=== PATIENT | female | born 1955 | race Caucasian/White ===

== ENCOUNTER 2019-10-28 11:05 | Emergency (ER) | payer SELFPAY ==
[2019-10-28 11:15] VITALS: BP 174/91; PULSE 79; RESP 17; TEMP 36.5; O2SAT 99; BMI 53.5
--- NOTE | 2019-10-28 11:21 | ED_ITS ---
HPI - Female Genitourinary General: Chief complaint: Urogenital-Female Stated complaint: blood in urine Time Seen by Provider: 10/28/19 11:13 History of Present Illness: HPI Narrative: Patient again had symptoms of urinary tract infections morning. She has frequency, urgency, voiding small amounts, and noticed some blood in the urine. MD elicited complaint: dysuria and UTI Onset (ago): hour(s) Severity: moderate Quality of pain: burning Urinary symptoms: Difficulty Urinating, Dysuria, Frequency, Hematuria and Urgency Exacerbating factors: urination Relieving factors: none Associated symptoms: Deny fevers/chills or nausea Review of Systems General: Reports: 10 or more systems reviewed and unremarkable except in HPI and below GI: Denies: nausea PFSH ED PFSH: Social History Smoking and tobacco status: never smoked Physical Exam Const: COMMON NORMALS: no acute distress, healthy appearing and well nourished GENERAL APPEARANCE: cooperative and well developed HENMT: COMMON NORMALS: normocephalic and atraumatic HEAD & SCALP: normal to inspection, normocephalic and atraumatic Eye: GENERAL EYE: appearance normal, both eyes and all related structures Neck/C-Spine: COMMON NORMALS: full ROM, no lymphadenopathy and no meningeal signs GENERAL: Yes normal visual inspection CERVICAL SPINE: Yes cervical ROM normal and Yes normal cervical lordosis Chest: COMMONS NORMALS: normal inspection of the chest and normal palpation of entire chest wall Resp: COMMON NORMALS: normal respiratory effort, clear to auscultation bilaterally and percussion normal AUSCULTATION: clear to auscultation bilaterally PERCUSSION: percussion normal Cardio: COMMON NORMALS: regular rate, regular rhythm, S1 normal heart sound present and S2 normal heart sound present JUGULAR VENOUS DISTENTION: no JVD PALPATION: normal PMI RATE: regular rate RHYTHM: regular rhythm HEART SOUNDS: S1 normal heart sound present and S2 normal heart sound present GI: COMMON NORMALS: Soft to palpation and No hepatosplenomegaly present INSPECTION: Yes normal to inspection PALPATION: Yes Soft to palpation and Yes No hepatosplenomegaly present PERCUSSION: normal to percussion : COMMON NORMALS: Yes no CVA tenderness BLADDER/KIDNEY EXAM: Yes no CVA tenderness Back/Pelvis: COMMON NORMALS: no CVA tenderness, thoracic and lumbar spine normal to inspection and thoraco-lumbar ROM normal Extremity: COMMON NORMALS: normal to inspection, full ROM and capillary refill normal Neuro: MENINGEAL SIGNS: Yes no meningeal signs Skin: COMMON NORMALS: no rashes or lesions noted, no wounds and turgor normal GENERAL SKIN EXAM: no rashes or lesions noted, elasticity normal and turgor normal LESIONS: no lesions RASHES: no rashes TRAUMA: no lacerations or abrasions HAIR: normal NAILS: normal Course Vital Signs: Vital signs: Vital Signs Temperature 97.7 F 10/28/19 11:15 Pulse Rate 79 10/28/19 11:15 Respiratory Rate 17 10/28/19 11:15 Blood Pressure 174/91 10/28/19 11:15 Pulse Oximetry 99 10/28/19 11:15 MDM - Female Lab Data: Labs: Lab Results 10/28/19 Range/Units 11:15 Urine Color Yellow (Yellow) Urine Appearance Cloudy (CLEAR) Urine pH 5 (5-7) Ur Specific Gravit y 1.020 (1.005-1.030) Urine Protein 1+ H (Negative) Urine Glucose (UA) 4+ H (Normal) Urine Ketones Negative (Negative) Urine Blood 3+ H (Negative) Urine Nitrate Negative (Negative) Urine Bilirubin Neg (NEGATIVE) Urine Urobilinogen Norm (Negative) mg/dL Ur Leukocyte Karuna ase 1+ H (Negative) Urine RBC 40-50 H (0-2) /hpf Urine WBC 15-25 H (0-5) /hpf Ur Squamous Epith Cells 0-4 H (0-5) Urine Bacteria 1+ H (NONE) Urine Mucus Trace Discharge Plan Discharge Patient Disposition: Home, Self-Care Clinical Impression: Urinary tract infection Qualifiers: Urinary tract infection type: acute cystitis Hematuria presence: with hematuria Qualified Code(s): N30.01 - Acute cystitis with hematuria Condition: Stable Prescriptions: New Bactrim DS 800-160 mg tablet 1 tab PO BID 7 Days Qty: 14 RF: 0 Pyridium 200 mg tablet 200 mg PO TID Qty: 6 RF: 0 No Action metformin 500 mg tablet 500 mg PO BID RF: 0 glyburide 5 mg tablet 10 mg PO BID RF: 0 paroxetine HCl 20 mg tablet 40 mg PO DAILY RF: 0 Vitamin D3 125 mcg (5,000 unit) Tablet 250 mcg PO DAILY RF: 0 Discharge Orders: Discharge Order (Routine); Ordered 10/28/19 Ordered By: Esvin Chatman Referrals: Pauly Hussein DO [Primary Care Provider] - Coding Level of Care Code ED Mechanical Sound Technician for Chg Fwd Exam Comprehensive
[2019-10-28 12:12] LABS: Glucose Urine UA 4+ (Normal); Ketones Urine Negative (Negative); Protein Urine 1+ (Negative); Urine Appearance Cloudy (CLEAR); Urine Color Yellow (Yellow); pH Urine 5 (5-7)
[2019-10-28 12:13] LABS: Add Urine Microscopic? YES; Bilirubin Urine Neg (NEGATIVE); Blood Urine 3+ (Negative); Leukocyte Esterase Urine 1+ (Negative); Nitrate Urine Negative (Negative); Urobilinogen Urine Norm (Negative)
[2019-10-28 12:18] LABS: RBC Urine 40-50 /hpf (0-2); WBC Urine 15-25 /hpf (0-5)
[2019-10-28 12:19] LABS: Add Urine Culture? Yes; Bacteria Urine 1+; Mucus Urine TRACE; Squamous Epithelial Cell Urine 0-4 (0-5)
[2019-10-28] MEDS: lidocaine 1% INJ 20 mL IM (13:41)
[2019-10-28] MEDS: cefTRIAXone 1,000 mg SDV 1000 MG IM (13:41)
[2019-10-28 14:00] VITALS: BP 130/82; PULSE 75; RESP 17; O2SAT 98
== END 2019-10-28 14:00 | disposition home or self-care (01) ==
PROVIDERS: Emergency Provider Family Medicine; Family Provider Family Medicine; PCP Family Medicine
DX: N30.01 Acute cystitis with hematuria (principal)
CPT/HCPCS: 12345; 81001; 87077; 87086; 87186; 96372; 99282; 99283; J0696; J2001

== ENCOUNTER 2019-12-19 11:17 | Emergency (ER) | payer SELFPAY ==
--- NOTE | 2019-12-19 11:21 | XRR_ITS ---
PROCEDURE INFORMATION: Exam: XR Chest, 1 View Exam date and time: 12/19/2019 12:34 PM Age: 64 years old Clinical indication: Type not specified; Patient HX: C/O chest pain and tightness; L arm pain. HX of colon cancer TECHNIQUE: Imaging protocol: XR of the chest Views: 1 view. COMPARISON: No relevant prior studies available. FINDINGS: Lungs: Unremarkable. No consolidation. Pleural space: Unremarkable. No pleural effusion. No pneumothorax. Heart/Mediastinum: Unremarkable. No cardiomegaly. Bones/joints: Unremarkable. XR/XR chest 1V portable [id number] IMPRESSION: No acute findings.
--- NOTE | 2019-12-19 11:21 | ECG_ITS ---
[facility] Test Date: 2019-12-19 Pat Name: Emma Nguyen Department: Room: Gender: Female Pharmacy Messenger: ts : 1955 Requested By: Dionne Marmolejo Order Number: [id number] Kai MD: Donald Pierce M.D. Measurements Intervals [place] Rate: 111 P: -15 NE: 204 QRS: 262 QRSD: 116 T: 7 QT: 321 QTc: 438 Interpretive Statements SINUS TACHYCARDIA INCOMPLETE RIGHT BUNDLE BRANCH BLOCK [90+ ms QRS DURATION, TERMINAL R IN V1/V2, 40+ ms S IN I/aVL/V4/V5/V6] INFERIOR MYOCARDIAL INFARCTION [40+ ms Q WAVE AND/OR ST/T ABNORMALITY IN II/aVF], PROBABLY OLD ANTEROLATERAL MYOCARDIAL INFARCTION [40+ ms Q WAVE IN I/aVL/V3-V6], OF INDETERMINATE AGE No previous ECG available for comparison Electronically Signed On 12-19-2019 17:05:55 CDT by Donald Pierce M.D. [id number] f
[2019-12-19 12:03] VITALS: BP 121/76; PULSE 105; RESP 16; TEMP 36.8; O2SAT 96; BMI 54.3
--- NOTE | 2019-12-19 13:21 | ECG_ITS ---
[facility] Test Date: 2019-12-19 Pat Name: Emma Nguyen Department: Room: Gender: Female Inventory Manager: : 1955 Requested By: Dionne Marmolejo Order Number: [id number] Quinn MD: Donald Pierce M.D. Measurements Intervals [place] Rate: 85 P: 59 MT: 213 QRS: 263 QRSD: 119 T: 12 QT: 362 QTc: 433 Interpretive Statements SINUS RHYTHM WITH FIRST DEGREE AV BLOCK RIGHT AXIS DEVIATION [QRS AXIS > 100] PATTERN CONSISTENT WITH PULMONARY DISEASE RIGHT BUNDLE BRANCH BLOCK [120+ ms QRS DURATION, UPRIGHT V1, 40+ ms S IN I/aVL/V4/V5/V6] INFERIOR MYOCARDIAL INFARCTION [40+ ms Q WAVE AND/OR ST/T ABNORMALITY IN II/aVF], PROBABLY OLD ANTEROLATERAL MYOCARDIAL INFARCTION [40+ ms Q WAVE IN I/aVL/V3-V6], OF INDETERMINATE AGE Compared to ECG 12/19/2019 12:07:31 First degree AV block now present Right-axis deviation now present Sinus tachycardia no longer present Electronically Signed On 12-19-2019 17:55:07 CDT by Donald Pierce M.D. [id number]
[2019-12-19 13:55] LABS: Basophils # 0.1 10^3/uL (0.0-0.1); Basophils % 0.7 %; Eosinophils # 0.1 10^3/uL (0.0-0.8); Eosinophils % 0.9 %; Hemoglobin 15.7 g/dL (11.5-15.3); Lymphocytes # 1.8 10^3/uL (0.8-4.8); Lymphocytes % 20.8 %; Mean Corpuscular Volume 93.5 fL (81-99); Mean Platelet Volume 10.3 fL (7.4-10.4); Monocytes # 0.6 10^3/uL (0.2-0.9); Neutrophils # 6.02 10^3/uL (1.8-7.7); Neutrophils % 70.2 %; Nucleated Red Blood Cells % 0 %; Platelet Count 297 10^3/cmm (130-400); Red Blood Count 5.24 10^6/uL (4.1-5.3); Red Cell Distribution Width 12.2 % (12.1-15.1); White Blood Count 8.6 10^3/uL (4.0-10.0)
[2019-12-19 14:07] VITALS: BP 101/85; PULSE 87; RESP 18; O2SAT 98
[2019-12-19 14:11] LABS: Alanine Aminotransferase 22 U/L (0-33); Albumin Level 3.8 g/dL (3.5-5.2); Alkaline Phosphatase 80 IU/L (35-105); Aspartate Amino Transferase 15 U/L (0-32); Blood Urea Nitrogen 21 mg/dL (8-23); Calcium 9.1 mg/dL (8.5-10.5); Carbon Dioxide 24 mmol/L (22-29); Chloride 97 mmol/L (98-107); Globulin 3.3 g/dL (1.3-4.6); Glomerular Filtration Rate 63.4 mL/min (90-130); Glucose 326 mg/dL (65-115); Osmolality Calculated 283 mOsm/kg (285-295); Sodium 132 mmol/L (136-145); Total Bilirubin 0.5 mg/dL (0.15-1.2); Total Protein 7.1 g/dL (6.6-8.7)
[2019-12-19 14:14] LABS: Troponin(5th) Baseline 12 ng/L (0-10)
--- NOTE | 2019-12-19 14:29 | ED_ITS ---
HPI - Arrhythmia/Palpitations General: Chief Complaint: Arrhythmia/Palpitations Stated Complaint: CHEST PAIN L ARM PAIN Time Seen by Provider: 12/19/19 13:57 History of Present Illness: HPI narrative: 64-year-old female comes in complaining of chest pain and heaviness she had some diaphoresis left arm discomfort with the pain radiating to the left shoulder and arm. She has had this in the past she has had several stress test work showed further evaluation she was told that it was due to esophageal spasm and irritation. She reports initially the pain that was worse was 4 of 10 is nearly resolved now, she is essentially pain-free. Severity: moderate Context: occurred during rest Associated symptoms: Reports no associated symptoms; Deny anxiety, diaphoresis, muscle cramps, nausea, pre-syncope, short of breath or syncope Review of Systems Const: Denies: diaphoresis Card: Denies: syncope or pre-syncope GI: Denies: nausea Musc: Denies: muscle cramps Psych: Denies: anxiety PFSH ED PFSH: Medical History (Updated 12/19/19 @ 15:19 by Hansel Singh DO) Colon cancer CVA (cerebral vascular accident) Diabetes mellitus Surgical History (Updated 12/19/19 @ 14:34 by Hansel Singh DO) H/O carpal tunnel repair Hx of cholecystectomy S/P colon resection Social History (Updated 12/19/19 @ 14:35 by Hansel Singh DO) Smoking and tobacco status: never smoked Alcohol intake: never Physical Exam Const: COMMON NORMALS: average body habitus, patient oriented x3 and alert GENERAL APPEARANCE: cooperative, comfortable, well kempt and well developed NUTRITIONAL APPEARANCE: obese ORIENTATION/CONSCIOUSNESS: Yes awake, Yes oriented to person and Yes oriented to place HENMT: COMMON NORMALS: normocephalic and atraumatic HEAD & SCALP: normocephalic and atraumatic Eye: COMMON NORMALS: Equal, round and reactive pupils present, EOMs intact bilaterally, conjunctivae normal and no scleral icterus CONJUNCTIVA: Yes conjunctivae normal PUPIL: Yes Equal, round and reactive pupils present Neck/C-Spine: COMMON NORMALS: full ROM, no lymphadenopathy, supple, no meningeal signs and Thyroid normal THYROID: Thyroid normal and asymmetrical Lymph: LYMPHATIC: no lymphadenopathy noted Resp: COMMON NORMALS: normal respiratory effort, No retractions, No use of accessory muscles and clear to auscultation bilaterally AUSCULTATION: clear to auscultation bilaterally Cardio: COMMON NORMALS: regular rate and regular rhythm RATE: regular rate RHYTHM: regular rhythm HEART SOUNDS: no murmurs GI: COMMON NORMALS: Normal to inspection, nondistended, normoactive bowel sounds present, Soft to palpation and No hepatosplenomegaly present PALPATION: Yes Soft to palpation and Yes No hepatosplenomegaly present : COMMON NORMALS: Yes no CVA tenderness BLADDER/KIDNEY EXAM: Yes no CVA tenderness Back/Pelvis: COMMON NORMALS: no CVA tenderness LUMBAR SPINE/LOWER BACK: Yes normal to inspection Extremity: COMMON NORMALS: no clubbing, cyanosis or edema, no calf tenderness and no pedal edema Neuro: COMMON NORMALS: patient oriented x3 SENSORIUM/ORIENTATION: Yes alert, Yes oriented to person and Yes oriented to place MENINGEAL SIGNS: Yes no meningeal signs Psych: APPEARANCE: Yes well kempt Skin: COMMON NORMALS: no rashes or lesions noted and turgor normal GENERAL SKIN EXAM: no rashes or lesions noted and turgor normal Course Vital Signs: Vital signs: Vital Signs Temperature 98.3 F 12/19/19 12:03 Pulse Rate 84 12/19/19 16:35 Respiratory Rate 18 12/19/19 16:35 Blood Pressure 101/86 12/19/19 16:35 Pulse Oximetry 94 12/19/19 16:35 MDM - Arrhythmia/Palpitations MDM Narrative: Medical decision making narrative: Patient has had no further arrhythmias while in the hospital. We will go ahead and discharge home we will get her set up for 24-hour Holter. No change in medication at this time is is any recurrent return to the emergency room otherwise follow-up with her primary care doctor next week Lab Data: Labs: Lab Results 12/19/19 12/19/19 12/19/19 Range/Units 13:09 13:09 13:09 WBC Cancelled Corrected WBC Cancelled RBC Cancelled Hgb Cancelled Hct Cancelled MCV Cancelled MCH Cancelled MCHC Cancelled RDW Cancelled Plt Count Cancelled MPV Cancelled Gran % Cancelled Neut % (Auto) Cancelled Lymph % (Auto) Cancelled [place] % (Auto) Cancelled Eos % (Auto) Cancelled Baso % (Auto) Cancelled Neut # (Auto) Cancelled Lymph # (Auto) Cancelled [place] # (Auto) Cancelled Eos # (Auto) Cancelled Baso # (Auto) Cancelled Absolute Gran (aut o) Cancelled Nucleated RBC % (a uto) Cancelled Nucleated RBCs # Cancelled Sodium 132 L (136-145) mmol/L Potassium 4.4 (3.5-5.1) mmol/L Chloride 97 L (98-107) mmol/L Carbon Dioxide 24 (22-29) mmol/L Anion Gap 15.4 (5-19) BUN 21 (8-23) mg/dL Creatinine 0.9 (0.5-0.9) mg/dL GFR Calculation 63.4 L (90-130) mL/min Glucose 326 H (65-115) mg/dL Calculated Osmolal ity 283 L (285-295) mOsm/k g Calcium 9.1 (8.5-10.5) mg/dL Total Bilirubin 0.5 (0.15-1.2) mg/dL AST 15 (0-32) U/L ALT 22 (0-33) U/L Alkaline Phosphata se 80 (35-105) IU/L Troponin T Baselin e 12 H (0-10) ng/L Troponin T 120 Min raphael (0-10) ng/L Delta Troponin T (0-10) ABS# Total Protein 7.1 (6.6-8.7) g/dL Albumin 3.8 (3.5-5.2) g/dL Globulin 3.3 (1.3-4.6) g/dL 12/19/19 12/19/19 Range/Units 13:49 15:14 WBC 8.6 Corrected WBC RBC 5.24 Hgb 15.7 H Hct 49.0 H MCV 93.5 MCH 30.0 MCHC 32.0 RDW 12.2 Plt Count 297 MPV 10.3 Gran % Neut % (Auto) 70.2 Lymph % (Auto) 20.8 [place] % (Auto) 7.0 Eos % (Auto) 0.9 Baso % (Auto) 0.7 Neut # (Auto) 6.02 Lymph # (Auto) 1.8 [place] # (Auto) 0.6 Eos # (Auto) 0.1 Baso # (Auto) 0.1 Absolute Gran (aut o) Nucleated RBC % (a uto) 0 Nucleated RBCs # 0.0 Sodium (136-145) mmol/L Potassium (3.5-5.1) mmol/L Chloride (98-107) mmol/L Carbon Dioxide (22-29) mmol/L Anion Gap (5-19) BUN (8-23) mg/dL Creatinine (0.5-0.9) mg/dL GFR Calculation (90-130) mL/min Glucose (65-115) mg/dL Calculated Osmolal ity (285-295) mOsm/k g Calcium (8.5-10.5) mg/dL Total Bilirubin (0.15-1.2) mg/dL AST (0-32) U/L ALT (0-33) U/L Alkaline Phosphata se (35-105) IU/L Troponin T Baselin e (0-10) ng/L Troponin T 120 Min raphael 14.01 H (0-10) ng/L Delta Troponin T 2.01 (0-10) ABS# Total Protein (6.6-8.7) g/dL Albumin (3.5-5.2) g/dL Globulin (1.3-4.6) g/dL Discharge Plan Discharge Patient Disposition: Home Clinical Impression: Palpitation, Diabetes mellitus Condition: Stable Prescriptions: No Action metformin 500 mg tablet 500 mg PO BID RF: 0 glyburide 5 mg tablet 10 mg PO BID RF: 0 paroxetine HCl 20 mg tablet 40 mg PO DAILY RF: 0 cholecalciferol (vitamin D3) [Vitamin D3] 125 mcg (5,000 unit) Tablet 250 mcg PO DAILY RF: 0 Aspir-81 81 mg Tablet,Delayed Release (Dr/Ec) 81 mg PO DAILY RF: 0 magnesium 1 tab PO DAILY RF: 0 Discharge Orders: Discharge Order (Routine); Ordered 12/19/19 Ordered By: Hansel Singh Referrals: Salo Valladares MD [Primary Care Provider] - Discharge Diet: Usual diet Discharge Activity: Increase activity as tolerated Activity Restrictions/Additional Instructions: Case management will call and make referral for a 24-hour Holter monitor Discharge Date/Time: 12/19/19 16:36 Coding Level of Care Code ED Nca Certified Concierge for Chg Fwd Exam Comprehensive
[2019-12-19 14:52] LABS: Anion Gap 15.4 (5-19); Potassium 4.4 mmol/L (3.5-5.1)
[2019-12-19] MEDS: lidocaine 2% viscous 15 ML, aluminum-mag hydrox-simethicon 30 ML, sucralfate oral liq 1 GM PO (14:57)
[2019-12-19 15:54] LABS: Troponin 5 2HR 14.01 ng/L (0-10); Troponin 5 2HR Delta 2.01 ABS# (0-10)
[2019-12-19 16:34] VITALS: BP 101/82; PULSE 85; RESP 18; O2SAT 94
[2019-12-19 16:35] VITALS: BP 101/86; PULSE 84; RESP 18; O2SAT 94
--- NOTE | 2019-12-21 15:32 | DCPLANNER ---
administrative assistant office manager had message to schedule a follow up appointment for patient with [facility] for a 24 hour halter monitor. administrative assistant office manager faxed out patient order to [facility], got confirmation that order was received. Clinic will call patient with appointment information.
--- NOTE | 2019-12-25 08:05 | DCPLANNER ---
Patient has a follow up appointment scheduled for Tuesday, December 26, 2019 at 1:00 at [facility].
--- NOTE | 2019-12-28 13:28 | DCPLANNER ---
Patient had a follow up appointment scheduled for 12.26.19 with [facility] - patient did not attend appointment.
== END 2019-12-19 16:36 | disposition home or self-care (01) ==
PROVIDERS: Physician Assistant; Emergency Provider Family Medicine; PCP Family Medicine
DX: R00.2 Palpitations (principal); E11.9 Type 2 diabetes mellitus without complications; Z79.82 Long term (current) use of aspirin; Z79.84 Long term (current) use of oral hypoglycemic drugs; Z85.038 Personal history of other malignant neoplasm of large intestine; Z86.73 Personal history of transient ischemic attack (TIA), and cerebral infarction without residual deficits
CPT/HCPCS: 12345; 36415; 71045; 80053; 84484; 85025; 93005; 93010; 99282; 99284

== ENCOUNTER → 2020-04-07 13:04 | Outpatient (BNVA) | payer SELFPAY | PROVIDERS: PCP Family Medicine; Referring Provider Family Medicine; Visit Provider Internal Medicine | DX: E11.40 Type 2 diabetes mellitus with diabetic neuropathy, unspecified (principal); E11.65 Type 2 diabetes mellitus with hyperglycemia; E66.01 Morbid (severe) obesity due to excess calories; Z68.43 Body mass index [BMI] 50.0-59.9, adult; E78.5 Hyperlipidemia, unspecified; I10 Essential (primary) hypertension | CPT/HCPCS: 99204 ==

== ENCOUNTER 2020-06-30 23:48 | Observation (INO) | payer MEDICAID, SELFPAY ==
--- NOTE | 2020-06-30 23:54 | XR_ITS ---
WS: [id number] PORTABLE CHEST HISTORY: cp COMPARISON: 12/19/2019 Lungs are clear and well expanded. No pleural effusion or pneumothorax. Cardiac size: Normal. Mediastinum/Aorta: Normal mediastinum. No osseous abnormality seen. XR/XR chest 1V portable [id number] IMPRESSION: Unremarkable portable chest.
--- NOTE | 2020-06-30 23:54 | ECG_ITS ---
[facility] Test Date: 2020-06-30 Pat Name: Emma Nguyen Department: Room: Gender: Female Sebd Teacher: : 1955 Requested By: Zach Moreno Order Number: [id number] Kai MD: Arti Dowell M.D. Measurements Intervals [place] Rate: 116 P: MN: QRS: -90 QRSD: 117 T: 26 QT: 307 QTc: 428 Interpretive Statements ATRIAL FIBRILLATION WITH RAPID VENTRICULAR RESPONSE RIGHT BUNDLE BRANCH BLOCK [120+ ms QRS DURATION, UPRIGHT V1, 40+ ms S IN I/aVL/V4/V5/V6] LEFT ANTERIOR FASCICULAR BLOCK [QRS AXIS <= -45, QR IN I, RS IN II] POSSIBLE ANTERIOR MYOCARDIAL INFARCTION , OF INDETERMINATE AGE [30 ms Q WAVE IN Compared to ECG 12/19/2019 14:42:12 Left anterior fascicular block now present Sinus rhythm no longer present First degree AV block no longer present Right-axis deviation no longer present Myocardial infarct finding still present Electronically Signed On 07-01-2020 17:49:47 MANAGEMENT LEAD by Arti Dowell M.D. [id number]
[2020-06-30 23:55] VITALS: BP 145/84; PULSE 128; RESP 16; TEMP 36.3; O2SAT 95; BMI 54.3
--- NOTE | 2020-06-30 23:56 | ED_ITS ---
HPI - Chest Pain General: Chief Complaint: Arrhythmia/Palpitations Stated Complaint: A FIB WITH RVR Time Seen by Provider: 06/30/20 23:51 Source: patient and EMS Mode of arrival: EMS Limitations: no limitations History of Present Illness: HPI narrative: 64-year-old female states tonight she has been having chest pain along with palpitations. She states she checked her pulse and it was in the 140s at home. Patient was in A. fib with RVR. EMS and they gave her Cardizem. She states she feels improved currently. States the pain she was having was a pressure type pain. Denies any shortness of breath. Denies any vomiting or diarrhea. Denies any worsening improving factors. MD complaint: chest pain Associated symptoms: Reports palpitations; Deny abdominal pain, dyspnea, fever(s), nausea or vomiting Review of Systems Const: Denies: fever(s), chills, body aches or change in appetite Eyes: Denies: blurry vision or eye discomfort ENMT: Denies: throat pain or dental pain Card: Reports: palpitations and irregular heart rhythm Resp: Denies: dyspnea GI: Denies: abdominal pain, nausea, vomiting or diarrhea : Denies: dysuria Musc: Denies: neck pain or back pain Skin/Breast: Denies: rash Neuro: Denies: headache(s) Psych: Denies: depression [place]/Lymph: Denies: easy bruising All/Imm: Denies: urticaria PFSH ED PFSH: Medical History Colon cancer CVA (cerebral vascular accident) Diabetes mellitus Surgical History H/O carpal tunnel repair Hx of cholecystectomy S/P colon resection Family History (Updated 04/09/20 @ 13:17 by Dagoberto Jose MD) Other Obesity Social History Smoking and tobacco status: never smoked Alcohol intake: never Physical Exam Const: COMMON NORMALS: no acute distress, patient oriented x3 and healthy appearing HENMT: COMMON NORMALS: normocephalic and atraumatic HEAD & SCALP: normocephalic and atraumatic Eye: COMMON NORMALS: Equal, round and reactive pupils present and EOMs intact bilaterally PUPIL: Yes Equal, round and reactive pupils present Neck/C-Spine: COMMON NORMALS: full ROM and supple Chest: COMMONS NORMALS: normal inspection of the chest and normal palpation of entire chest wall Resp: COMMON NORMALS: normal respiratory effort, No retractions, No use of accessory muscles and clear to auscultation bilaterally AUSCULTATION: clear to auscultation bilaterally Cardio: COMMON NORMALS: No murmurs present (Cardio) RATE: tachycardic RHYTHM: abnormal rhythm irregularly irregular GI: COMMON NORMALS: Normal to inspection, nondistended, normoactive bowel sounds present, Soft to palpation, non-tender and no masses PALPATION: Yes Soft to palpation Extremity: COMMON NORMALS: normal to inspection and full ROM Neuro: COMMON NORMALS: patient oriented x3, moves all extremities and no focal motor deficits Psych: COMMON NORMALS: mental status grossly normal, Normal thought process present and cooperative THOUGHT PROCESS: Normal thought process present Skin: COMMON NORMALS: no rashes or lesions noted and no wounds GENERAL SKIN EXAM: no rashes or lesions noted Course Vital Signs: Vital signs: Vital Signs Temperature 97.4 F L 06/30/20 23:55 Pulse Rate 138 H 06/30/20 23:59 Respiratory Rate 16 06/30/20 23:59 Blood Pressure 145/84 06/30/20 23:59 Pulse Oximetry 95 06/30/20 23:59 MDM - Chest Pain MDM Narrative: Medical decision making narrative: Patient presents here with palpitations and is A. fib with RVR. Heart rate here is improved on a Cardizem drip. Patient's blood work here are normal. I spoke to hospitalist will admit at this time. Lab Data: Labs: Lab Results 06/30/20 06/30/20 06/30/20 Range/Units 00:13 00:13 00:13 WBC 13.9 H (4.0-10.0) 10^3/ uL RBC 5.10 (4.1-5.3) 10^6/u L Hgb 15.5 H (11.5-15.3) g/dL Hct 46.0 (37.0-47.0) % MCV 90.2 (81-99) fL MCH 30.4 (28.0-34.0) pg MCHC 33.7 (30.0-36.0) g/dL RDW 12.5 (12.1-15.1) % Plt Count 299 (130-400) 10^3/c mm MPV 11.5 H (7.4-10.4) fL Neut % (Auto) 78.8 % Lymph % (Auto) 10.7 % [place] % (Auto) 9.3 % Eos % (Auto) 0.4 % Baso % (Auto) 0.4 % Neut # (Auto) 10.90 H (1.8-7.7) 10^3/u L Lymph # (Auto) 1.5 (0.8-4.8) 10^3/u L [place] # (Auto) 1.3 H (0.2-0.9) 10^3/u L Eos # (Auto) 0.1 (0.0-0.8) 10^3/u L Baso # (Auto) 0.1 (0.0-0.1) 10^3/u L Nucleated RBC % (a uto) 0 % Nucleated RBCs # 0.0 /100WBC PT 14.50 (12.1-14.9) SECO NDS INR 1.10 (0.8-1.2) Sodium 135 L (136-145) mmol/L Potassium 4.5 (3.5-5.1) mmol/L Chloride 101 (98-107) mmol/L Carbon Dioxide 22 (22-29) mmol/L Anion Gap 16.5 (5-19) BUN 19 (8-23) mg/dL Creatinine 0.8 (0.5-0.9) mg/dL GFR Calculation 72.7 L (90-130) mL/min Glucose 288 H (65-115) mg/dL Calculated Osmolal ity 293 (285-295) mOsm/k g Calcium 9.0 (8.5-10.5) mg/dL Total Bilirubin 0.7 (0.15-1.2) mg/dL AST 25 (0-32) U/L ALT 43 H (0-33) U/L Alkaline Phosphata se 85 (35-105) IU/L Troponin T Baselin e (0-10) ng/L NT-Pro-B Natriuret Pep 318 H (0-125) pg/mL Total Protein 6.8 (6.6-8.7) g/dL Albumin 3.9 (3.5-5.2) g/dL Globulin 2.9 (1.3-4.6) g/dL 06/30/20 Range/Units 00:13 WBC (4.0-10.0) 10^3/ uL RBC (4.1-5.3) 10^6/u L Hgb (11.5-15.3) g/dL Hct (37.0-47.0) % MCV (81-99) fL MCH (28.0-34.0) pg MCHC (30.0-36.0) g/dL RDW (12.1-15.1) % Plt Count (130-400) 10^3/c mm MPV (7.4-10.4) fL Neut % (Auto) % Lymph % (Auto) % [place] % (Auto) % Eos % (Auto) % Baso % (Auto) % Neut # (Auto) (1.8-7.7) 10^3/u L Lymph # (Auto) (0.8-4.8) 10^3/u L [place] # (Auto) (0.2-0.9) 10^3/u L Eos # (Auto) (0.0-0.8) 10^3/u L Baso # (Auto) (0.0-0.1) 10^3/u L Nucleated RBC % (a uto) % Nucleated RBCs # /100WBC PT (12.1-14.9) SECO NDS INR (0.8-1.2) Sodium (136-145) mmol/L Potassium (3.5-5.1) mmol/L Chloride (98-107) mmol/L Carbon Dioxide (22-29) mmol/L Anion Gap (5-19) BUN (8-23) mg/dL Creatinine (0.5-0.9) mg/dL GFR Calculation (90-130) mL/min Glucose (65-115) mg/dL Calculated Osmolal ity (285-295) mOsm/k g Calcium (8.5-10.5) mg/dL Total Bilirubin (0.15-1.2) mg/dL AST (0-32) U/L ALT (0-33) U/L Alkaline Phosphata se (35-105) IU/L Troponin T Baselin e 8 (0-10) ng/L NT-Pro-B Natriuret Pep (0-125) pg/mL Total Protein (6.6-8.7) g/dL Albumin (3.5-5.2) g/dL Globulin (1.3-4.6) g/dL EKG Data^: EKG 1: Attestation: I personally reviewed and interpreted this EKG as follows: EKG interpretation date: 07/01/20 EKG interpretation time: 23:55 Interpretation: afib hr [address] or t wave abnormalities qrs 117 qtc 376 Critical Care Time Critical Care Time: Critical Care Time: Yes Total Critical Care Time: 35 Attestation: This case had a high probability of a clinically significant, sudden, or life threatening deterioration of this patient's condition which required my full and direct attention, intervention and personal management. Discharge Plan Discharge Patient Disposition: Admitted As Inpatient Clinical Impression: Atrial fibrillation Qualifiers: Atrial fibrillation type: unspecified Qualified Code(s): I48.91 - Unspecified atrial fibrillation Condition: Stable Coding Level of Care Code ED Phosphoric Acid Operator for Chg Fwd Exam Comprehensive
[2020-06-30 23:59] VITALS: BP 145/84; PULSE 138; RESP 16; O2SAT 95
[2020-07-01] VITALS (31 sets, daily range): BP systolic 108–148; BP diastolic 62–115; PULSE 66–121; RESP 13–25; TEMP 36.3–37.5; O2SAT 91–96
[2020-07-01] MEDS: sodium chloride 0.9% 1,000 ML 999 ML IV (00:15)
[2020-07-01 00:26] LABS: Basophils # 0.1 10^3/uL (0.0-0.1); Basophils % 0.4 %; Eosinophils # 0.1 10^3/uL (0.0-0.8); Eosinophils % 0.4 %; Hemoglobin 15.5 g/dL (11.5-15.3); Lymphocytes # 1.5 10^3/uL (0.8-4.8); Lymphocytes % 10.7 %; Mean Corpuscular HGB Conc 33.7 g/dL (30.0-36.0); Mean Corpuscular Hemoglobin 30.4 pg (28.0-34.0); Mean Corpuscular Volume 90.2 fL (81-99); Mean Platelet Volume 11.5 fL (7.4-10.4); Monocytes # 1.3 10^3/uL (0.2-0.9); Monocytes % 9.3 %; Neutrophils % 78.8 %; Nucleated Red Blood Cells % 0 %; Platelet Count 299 10^3/cmm (130-400); Red Cell Distribution Width 12.5 % (12.1-15.1); White Blood Count 13.9 10^3/uL (4.0-10.0)
[2020-07-01 00:57] LABS: Troponin(5th) Baseline 8 ng/L (0-10)
[2020-07-01 01:05] LABS: Alanine Aminotransferase 43 U/L (0-33); Albumin Level 3.9 g/dL (3.5-5.2); Alkaline Phosphatase 85 IU/L (35-105); Anion Gap 16.5 (5-19); Aspartate Amino Transferase 25 U/L (0-32); Blood Urea Nitrogen 19 mg/dL (8-23); Carbon Dioxide 22 mmol/L (22-29); Chloride 101 mmol/L (98-107); Globulin 2.9 g/dL (1.3-4.6); Glomerular Filtration Rate 72.7 mL/min (90-130); Glucose 288 mg/dL (65-115); NT Pro B Type Natriuretic Pept 318 pg/mL (0-125); Osmolality Calculated 293 mOsm/kg (285-295); Potassium 4.5 mmol/L (3.5-5.1); Sodium 135 mmol/L (136-145); Total Bilirubin 0.7 mg/dL (0.15-1.2); Total Protein 6.8 g/dL (6.6-8.7)
[2020-07-01 01:14] LABS: Glucose Point of Care 265 mg/dL (70-110)
--- NOTE | 2020-07-01 01:54 | ECG_ITS ---
[facility] Test Date: 2020-07-01 Pat Name: Emma Nguyen Department: Room: Gender: Female Director Of Individual Giving: : 1955 Requested By: Zach Moreno Order Number: [id number] Kai MD: Arti Dowell M.D. Measurements Intervals [place] Rate: 96 P: DE: QRS: -89 QRSD: 119 T: 30 QT: 351 QTc: 444 Interpretive Statements ATRIAL FIBRILLATION RIGHT BUNDLE BRANCH BLOCK [120+ ms QRS DURATION, UPRIGHT V1, 40+ ms S IN I/aVL/V4/V5/V6] LEFT ANTERIOR FASCICULAR BLOCK [QRS AXIS <= -45, QR IN I, RS IN II] POSSIBLE ANTERIOR MYOCARDIAL INFARCTION , OF INDETERMINATE AGE [30 ms Q WAVE IN V3/V4, OR R < 0.2 mV IN V4] Compared to ECG 06/30/2020 23:55:51 No significant changes Electronically Signed On 07-01-2020 8:05:08 CONVERSION MAN by Arti Dowell M.D. [id number]
[2020-07-01 02:57] LABS: Troponin 5 2HR 11.78 ng/L (0-10)
[2020-07-01 02:59] LABS: Troponin 5 2HR Delta 3.78 ABS# (0-10)
--- NOTE | 2020-07-01 04:36 | P.HP_ITS ---
Providers/Chief Complaint Admitting Physician: Alejandra Callaway MD Primary Care Provider: Salo Valladares MD Chief Complaint: A FIB WITH RVR History of Present Illness Emma Nguyen is a 64 year old female with history of type 2 diabetes with complications such as neuropathy, CVA in the past, insulin-dependent who presents today with chief complaint of dizziness. Patient is stating that for last 24 hours she was not feeling right she felt dizziness which she is describing as lightheadedness, she also felt extremely fatigued and tired and nauseous, she denied fever, cough, chest pain. When she checked her pulse it was 120, she was also experiencing palpitations, because of these concerns she decided to come to the hospital for further evaluation. She gets diarrhea after taking Metformin, her blood sugar has been above 200 for last few days as well. Dr. Valladares recommended Holter monitoring because of her palpitations which revealed sinus rhythm without significant heart rate abnormalities. Diagnostics in the ER revealed A. fib RVR, she was given Cardizem IV push which was not helpful in relieving her symptoms and bringing her heart rate down hence she was started on Cardizem drip, her heart rate was in 70s at the time of my evaluation add Cardizem drip 10 mg/hr, she was not complaining of any active chest pain or shortness of breath systolic blood pressure was in 130s EKG showing A. fib RVR without ischemic or infarctive changes, no signs of sepsis, I have requested D-dimer, magnesium and TSH, chest x-ray unremarkable Review of Systems Const: Denies: fever(s) Eyes: Denies: change in vision ENMT: Denies: throat pain Card: Reports: pre-syncope; Denies: chest pain Resp: Denies: dyspnea GI: Reports: nausea, diarrhea and bloating : Denies: flank pain Musc: Denies: neck pain Skin/Breast: Denies: rash Neuro: Denies: headache(s) Psych: Denies: anxiety Endo: Denies: polyuria Daquan/Lymph: Denies: easy bruising All/Imm: Denies: urticaria Medications/Allergies Home Medications Medication Instructions Recorded Confirmed Last Taken Type cholecalciferol (vitamin D3) 250 mcg PO DAILY 10/28/19 12/19/19 12/18/19 History [Vitamin D3] metformin 500 mg PO BID 06/12/19/19 12/19/19 History paroxetine HCl 40 mg PO DAILY 10/28/19 12/19/19 12/18/19 History aspirin [Aspir-81] 81 mg PO DAILY 12/19/19 12/19/19 12/19/19 History magnesium 1 tab PO DAILY 12/19/19 12/19/19 12/18/19 History carvedilol 3.125 mg tablet 3.125 mg PO BID 04/07/20 04/07/20 Unknown History insulin glargine 100 unit/mL (3 10 unit SUBCUT DAILY 60 Days #6 ml 04/07/20 04/07/20 Unknown Rx mL) subcutaneous pen pen needle, diabetic 29 gauge x #100 ea 04/07/20 04/07/20 Unknown Rx 1/2 simvastatin 10 mg tablet 10 mg PO DAILY 04/07/20 04/07/20 Unknown History Allergies Allergy/AdvReac Type Severity Reaction Status Date / Time acetaminophen [From Percocet] Allergy Unknown Verified 07/01/20 00:00 codeine Allergy ADR-Cramping Verified 07/01/20 00:00 of the Muscles Iodinated Contrast Media Allergy ADR-Blurry Verified 07/01/20 00:00 Vision morphine Allergy ADR-Confusi Verified 07/01/20 00:00 on oxycodone [From Percocet] Allergy Unknown Verified 07/01/20 00:00 PFSH Acute PFSH: Medical History Colon cancer CVA (cerebral vascular accident) Diabetes mellitus Surgical History H/O carpal tunnel repair Hx of cholecystectomy S/P colon resection Family History Other Obesity Social History Smoking and tobacco status: never smoked Alcohol intake: never Vitals/I&O/Wt Last Vital Signs Temp 97.4 F L 06/30/20 23:55 Pulse 92 07/01/20 04:15 Resp 21 H 07/01/20 04:15 BP 129/73 07/01/20 04:15 Pulse Ox 92 07/01/20 04:15 Weight last 48 hrs Weight 143.789 kg Physical Exam Narrative: EXAM NARRATIVE: Middle-age female who appears more than stated age Morbid obesity No acute respiratory distress No active chest pain S1, S2 no murmur appreciated Abdomen distended bowel sound present Lower extremity no edema gangrene ulcer Bilateral breath sounds without adventitious rhonchi or crackles Awake alert oriented x3 GCS 15 no neurological deficit Appropriate mood and affect Poor dental hygiene Data : 06/30/20 00:13 06/30/20 00:13 A&P Assessment and plan (1) New onset atrial fibrillation: Status: Acute (2) Uncontrolled type 2 diabetes mellitus: Status: Acute (3) Hypomagnesemia: Status: Acute Additional A&P Information New onset A. fib with RVR TSH normal, hypomagnesemia noted Patient does endorse abnormal sleep pattern never had any sleep study PE less likely D-dimer unremarkable Currently on Cardizem drip 10 mg/h her [id number] is 6, will add Eliquis 5 mg twice a day Echo in the morning Uncontrolled type 2 diabetes Complicated with neuropathy and CVA in the past We will check hemoglobin A1c level continue Lantus 10 units along moderate sliding scale Hypomagnesemia most likely due to diarrhea Endorses diarrhea after taking Metformin Magnesium repleted Full code Cardiac/consistent carb diet DVT prophylaxis Eliquis Attestations Medical Necessity Statement*: Anticipating stay in the hospital to be of less than 48 hours currently need management for A. fib with acute RVR Time Spent in Patient Care: (>than 50% of time spent in counselling and/or direct pt care on unit) . 50mins Coding Level of Care Code Acute Big Data Platform Architect for Chg Fwd Diagnoses New onset atrial fibrillation I48.91 Uncontrolled type 2 diabetes mellitus E11.65 Hypomagnesemia E83.42
--- NOTE | 2020-07-01 04:37 | USCV_ITS ---
Emma Nguyen Age: 64 Gender: F : 1955 Exam Date: 07/01/2020 06:25 Ordering Phys: Alejandra Callaway MD Technologist: Sumit Lopez Exam Location: [facility] [place] Indication: NEW ONSET AFIB BP: / HR: Rhythm: Sinus Technical Quality: Suboptimal MEASUREMENTS (Male / Female) Normal Values FINDINGS Left Ventricle Normal left ventricular cavity size and systolic function. Left ventricular ejection fraction is estimated at 60-65 %. No diagnostic regional wall motion abnormalities. Grade II diastolic dysfunction, moderately elevated filling pressures. Right Ventricle Normal right ventricular size and systolic function. Right Atrium Normal right atrial size. Left Atrium Mildly increased left atrial size. Mitral Valve Moderate mitral annular calcification. No mitral valve stenosis. Trace mitral valve regurgitation. Aortic Valve Thickened trileaflet aortic valve. No aortic valve stenosis. No aortic valve regurgitation. Tricuspid Valve Tricuspid valve not well visualized. Mild tricuspid valve regurgitation. Pulmonic Valve Pulmonic valve not well visualized. Pericardium No pericardial effusion. Aorta Aorta not well visualized. CONCLUSIONS 1. This is a technically very difficult study. 2. Normal left ventricular cavity size and systolic function. Left ventricular ejection fraction is estimated at 60-65 %. No diagnostic regional wall motion abnormalities. Grade II diastolic dysfunction, moderately elevated filling pressures. 3. Normal right ventricular size and systolic function. 4. Mildly increased left atrial size. 5. No prior similar studies to compare. Arti Dowell MD (Electronically Signed) Final Date: 02 July 2020 08:38 S
[2020-07-01 05:34] LABS: Estmated Average Glucose 237; Hemoglobin A1C 9.9 % (4.0-6.0)
[2020-07-01 05:45] LABS: Magnesium 1.4 mg/dL (1.7-2.3); Thyroid Stimulating Hormone 1.56 uIU/mL (0.27-4.20)
--- NOTE | 2020-07-01 05:54 | ECG_ITS ---
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 Measurements Intervals [place] Rate: 80 P: 57 WI: 234 QRS: -75 QRSD: 122 T: 18 QT: 384 QTc: 443 Interpretive Statements SINUS RHYTHM WITH FIRST DEGREE AV BLOCK LEFT AXIS DEVIATION [QRS AXIS < -30] RIGHT BUNDLE BRANCH BLOCK [120+ ms QRS DURATION, UPRIGHT V1, 40+ ms S IN I/aVL/V4/V5/V6] POSSIBLE ANTERIOR MYOCARDIAL INFARCTION , OF INDETERMINATE AGE [30 ms Q WAVE IN V3/V4, OR R < 0.2 mV IN V4] Compared to ECG 07/01/2020 02:27:50 First degree AV block now present Left-axis deviation now present Atrial fibrillation no longer present Left anterior fascicular block no longer present Myocardial infarct finding still present Electronically Signed On 07-01-2020 8:03:07 HAT BODY INSPECTOR by Arti Dowell M.D. [id number]
[2020-07-01 06:43] LABS: Troponin 5 6HR 11.12 ng/L (0-10)
[2020-07-01 07:04] LABS: Troponin 5 6HR Delta 3.12 ng/L (0-12)
--- NOTE | 2020-07-01 07:48 | PC.NURSE ---
pt remains in a normal sinus rhythm so cardizem gtt titrated down. will continue to monitor.
[2020-07-01 07:54] LABS: Glucose Point of Care 227 mg/dL (70-110)
[2020-07-01] MEDS: apixaban 5 mg Tablet PO ×2 (08:05→21:09)
[2020-07-01] MEDS: atorvastatin 40 mg Tablet 20 MG PO (08:06)
[2020-07-01] MEDS: aspirin 81 mg EC Tablet PO (08:06)
[2020-07-01] MEDS: dilTIAZem 30 mg Tablet PO ×3 (08:06→21:09)
[2020-07-01 13:06] LABS: Glucose Point of Care 267 mg/dL (70-110)
--- NOTE | 2020-07-01 15:02 | P.CONIM_ITS ---
Providers/Reason For Consult Consulting Physican/Specialty*: Dr. Dowell, cardiology Reason for Consult*: [facility] with RVR Attending Physician: Justin Tao Primary Care Provider: Salo Valladares MD History of Present Illness History of Present Illness Emma Nguyen is a 64 year old female with past medical history of insulin- dependent diabetes mellitus, morbid obesity, history of CVA in 2015, neuropathy, hypertension with dyspnea on exertion for last several months on walking long distance and on climbing steps that may have worsened somewhat and dizziness for last 3-4 days. She presented with chest tightness and heart racing and hence she came to the hospital for further evaluation. EKG showed atrial fibrillation with RVR and was started on diltiazem gtt. She has converted back to SR and her symptoms to chest pain has resolved. I have been asked to assist and evaluate in further management, Review of Systems Const: Denies: fever(s) Eyes: Denies: change in vision ENMT: Denies: throat pain Card: Reports: chest pain, palpitations, lightheadedness and dyspnea on exertion; Denies: swelling of feet/ankles, syncope or orthopnea Resp: Reports: dyspnea; Denies: productive cough or non-productive cough GI: Reports: nausea, diarrhea and bloating; Denies: hematochezia or melena : Denies: flank pain or hematuria Musc: Denies: neck pain Skin/Breast: Denies: rash Neuro: Denies: headache(s), numbness in extremities or weakness in extremities Psych: Denies: anxiety or depression Endo: Denies: polyuria Daquan/Lymph: Denies: easy bruising All/Imm: Denies: urticaria Meds/Allergies Home Medications and Allergies Home Medications Medication Instructions Recorded Confirmed Last Taken Type cholecalciferol (vitamin D3) 250 mcg PO DAILY@209910/28/19 07/01/20 06/30/20 History [Vitamin D3] metformin 500 mg PO BID@10/28/19 07/01/20 06/30/20 History paroxetine HCl 40 mg PO DAILY@209910/28/19 07/01/20 06/30/20 History aspirin [Aspir-81] 81 mg PO DAILY@209912/19/19 07/01/20 06/30/20 History magnesium 1 tab PO DAILY@209912/19/19 07/01/2021 History carvedilol 3.125 mg tablet 3.125 mg PO BID@04/07/20 07/01/20 06/30/20 History simvastatin 10 mg tablet 10 mg PO DAILY 04/07/20 07/01/20 Unknown History insulin glargine [Lantus U-100 25 unit SUBCUT DAILY@0900 07/01/20 07/01/20 06/30/20 History Insulin] Allergies Allergy/AdvReac Type Severity Reaction Status Date / Time acetaminophen [From Percocet] Allergy Unknown Verified 07/01/20 00:00 codeine Allergy ADR-Cramping Verified 07/01/20 00:00 of the Muscles Iodinated Contrast Media Allergy ADR-Blurry Verified 07/01/20 00:00 Vision morphine Allergy ADR-Confusi Verified 07/01/20 00:00 on oxycodone [From Percocet] Allergy Unknown Verified 07/01/20 00:00 Current Medications Current Medications Generic Name Dose Route Start Last Admin Trade Name Freq PRN Reason Stop Dose Admin Apixaban 5 mg 07/01/20 09:00 07/01/20 08:05 Apixaban 5 Mg Tablet PO 5 mg BID@0900,2100 MIS Administration Aspirin 81 mg 07/01/20 09:00 07/01/20 08:06 Aspirin 81 Mg Ec Tablet PO 81 mg DAILY MIS Administration Atorvastatin Calcium 20 mg 07/01/20 09:00 07/01/20 08:06 Atorvastatin 40 Mg Tablet PO 20 mg DAILY MIS Administration Diltiazem HCl 30 mg 07/01/20 09:00 07/01/20 08:06 Diltiazem 30 Mg Tablet PO 30 mg TID MIS Administration Diltiazem HCl 125 mg/ Sodium 125 mls @ 10 mls/hr 07/01/20 00:00 07/01/20 12:58 Chloride IV Not Given .[id number] MIS 10 MG/HR Insulin Aspart 0 unit 07/01/20 08:00 07/01/20 13:18 Insulin Aspart 100 Unit/1 Ml SUBCUT 10 unit WM&BEDTIME MIS Administration Protocol Insulin Glargine 10 unit 07/01/20 09:00 07/01/20 09:56 Insulin Glargine 100 Units/1 Ml SUBCUT Not Given DAILY MIS PFSH Acute PFSH: Medical History Colon cancer CVA (cerebral vascular accident) Diabetes mellitus Surgical History H/O carpal tunnel repair Hx of cholecystectomy S/P colon resection Family History Other Obesity Social History Smoking and tobacco status: never smoked Alcohol intake: never Vitals/I&O/Wt Last Vital Signs Temp 97.4 F L 07/01/20 05:39 Pulse 67 07/01/20 13:19 Resp 18 07/01/20 13:19 BP 113/71 07/01/20 13:19 Pulse Ox 95 07/01/20 13:19 07/01/20 07/01/20 07/01/20 06:59 14:59 22:59 Intake Total 1000 / 1000 76.083 / 76.083 Balance 1000 / 1000 76.083 / 76.083 Weight last 48 hrs Weight 317 lb Physical Exam Narrative: EXAM NARRATIVE: GENERAL: Morbidly obese woman lying in bed in no acute distress HEENT: Extraocular movement intact. Pupils equal round reactive to light. No pallor or icterus. NECK: central trachea, No JVD appreciated. CARDIOVASCULAR SYSTEM: S1-S2 regular. No S3 or S4 present. No murmur rubs or gallops. RESPIRATORY SYSTEM: Chest clear to auscultation. No wheezes rhonchi or rubs heard. No use of accessory muscles. ABDOMEN: Soft, nontender and nondistended. Normal bowel sounds present. EXTREMITIES: No cyanosis or clubbing. No edema. No signs of chronic venous insufficiency. PRINCIPAL SYSTEMS ARCHITECT: Patient is alert oriented ?3. No focal neurological deficits. SKIN: Normal turgor and temperature. No breakdown, rash or nail changes noted. PSYCH: Normal insight and judgment. Data Labs: Other Labs: Hemoglobin A1c 9.9, magnesium 1.4. Baseline troponin T of 12 at 2 hours of 11. NT proBNP of 318. TSH 1.56 Other Data: Attestation for Other Data: I personally reviewed and interpreted the following: Other data: Chest x-ray with no acute cardiopulmonary abnormality. A&P Assessment and plan (1) New onset atrial fibrillation: [id number] = 1 for hypertension, 1 for female sex, 1 for diabetes and 2 for CVA. EKG on arrival showed A. fib with RVR with heart rate at 116 bpm, right bundle branch block and left anterior fascicular block. Possible anterior RI of interim indeterminate age. -He was started on Cardizem drip that has since been stopped. Patient has now converted back to sinus rhythm. -Currently on Cardizem 30 mg p.o. 3 times daily and Eliquis 5 mg p.o. twice daily. -Normal TSH, normal potassium but low magnesium level. -Follow-up on echocardiogram. Status: Acute (2) Dyspnea on exertion: Given multiple CAD risk factors, plan for stress test in am. Status: Acute (3) Hypertension: Status: Acute Qualifiers: Hypertension type: essential hypertension Qualified Code(s): I10 - Essential (primary) hypertension (4) Hyperlipidemia: Status: Acute Qualifiers: Hyperlipidemia type: mixed hyperlipidemia Qualified Code(s): E78.2 - Mixed hyperlipidemia (5) Uncontrolled type 2 diabetes mellitus: Status: Acute Qualifiers: Glycemic state: with hyperglycemia Qualified Code(s): E11.65 - Type 2 diabetes mellitus with hyperglycemia (6) Morbid obesity with BMI of 50.0-59.9, adult: Status: Acute Additional A&P Information Diabetic neuropathy Morbid obesity Bifascicular block leukocytosis Hypomagnesemia Thank you for allowing me to participate in patient's care. Please feel free to call with questions or concerns. Consult Attestations Medical Necessity Statement: As per primary team Time Spent in Patient Care: Greater than 35 minutes (>than 50% of time spent in counselling and/or direct pt care on unit) . Coding Level of Care Code Acute Civil Engineering Teacher for Chg Fwd Diagnoses New onset atrial fibrillation I48.91 Dyspnea on exertion R06.00 Hypertension I10 Hypertension type: essential hypertension Hyperlipidemia E78.2 Hyperlipidemia type: mixed hyperlipidemia Uncontrolled type 2 diabetes mellitus E11.65 Glycemic state: with hyperglycemia Morbid obesity with BMI of 50.0-59.9, adult E66.01; Z68.43
--- NOTE | 2020-07-01 15:50 | ECG_ITS ---
[facility] Test Date: 2020-07-02 Pat Name: Emma Nguyen Department: Room: 107 Gender: Female Government Contracts Manager: : 1955 Requested By: Arti Dowell Order Number: [id number] Kai MD: Arti Dowell M.D. Interpretive Statements NAME OF STUDY: LEXISCAN SESTAMIBI STRESS TEST INDICATION: Dyspnea, multiple cad risk factors PROCEDURE: At the baseline, the blood pressure was 122/79 mm Hg with a heart rate of 72 bpm and oxygen saturation of 96%. The electrocardiogram showed normal sinus rhythm with first degree AV block, left axis deviation and right bundle branch block. Poor anterior R wave progression. ??? The Lexiscan was infused over a period of 20 seconds. A total of 0.4 milligrams of Lexiscan was infused. The stress phase was continued for a total of 5 minutes. Heart rate at the end of the stress phase was 86 bpm, oxygen saturation of 96% with a blood pressure of 146/82 mm Hg. The EKG at the peak infusion revealed no significant ST-T wave changes. The study was terminated due to protocol completion. ??? Sestamibi was injected 20 seconds after the Lexiscan infusion. ??? Blood pressure at the end of the recovery phase was 136/82 mm Hg, oxygen saturation of 95% with a heart rate of 86 beats per minute. ??? CONCLUSION: 1. Normal EKG response to LexiScan infusion. 2. No LexiScan induced chest pain or cardiac arrhythmia. 3. Normal blood pressure and heart rate response. 4. Sestamibi/sestamibi perfusion scan pending; see separate report. Electronically Signed On 07-02-2020 18:51:41 SENIOR TAX MANAGER by Arti Dowell M.D. [id number]
[2020-07-01 17:42] LABS: Glucose Point of Care 242 mg/dL (70-110)
--- NOTE | 2020-07-01 19:05 | PC.NURSE ---
admitted into room 107 from er.report received.pt admitted for afib .converted to nsr this am.on po cardizem now.alert and oriented x 4.nsr on monitor.bp stable.oriented to room environment.instructed to notify staff for any pain,sob,palpitations..or for any concerns at all.pt verb understanding of instructions.
--- NOTE | 2020-07-01 19:48 | P.PN_ITS ---
Subjective Subjective: Interval history: The patient reports feeling better. Denies palpitations. Denies chest pain. No shortness of breath or diaphoresis. No dizziness or lightheadedness. Medications: Reviewed: Yes Vitals/I&O/Wt Last Vital Signs Temp 99.5 F 07/01/20 19:36 Pulse 75 07/01/20 19:36 Resp 17 07/01/20 19:36 BP 122/75 07/01/20 19:36 Pulse Ox 95 07/01/20 19:36 07/01/20 07/01/20 07/01/20 06:59 14:59 22:59 Intake Total 1000 / 1000 76.083 / 76.083 Balance 1000 / 1000 76.083 / 76.083 Weight last 48 hrs Weight 143.789 kg Physical Exam Narrative: EXAM NARRATIVE: Awake alert oriented. No acute distress. Mood and affect are appropriate. Responses are adequate. Skin warm and dry. Moist extremities. Neck supple. No JVD Lungs clear. Heart S1, S2, regular Abdomen soft, nontender, bowel sounds are present Extremities. No calf tenderness bilaterally. No cyanosis. Mild pedal edema. Neuro exam is nonfocal. Data : 06/30/20 00:13 06/30/20 00:13 A&P Assessment and plan (1) New onset atrial fibrillation: Status: Acute (2) Uncontrolled type 2 diabetes mellitus: Status: Acute Qualifiers: Glycemic state: with hyperglycemia Qualified Code(s): E11.65 - Type 2 diabetes mellitus with hyperglycemia (3) Hypomagnesemia: Status: Acute Additional A&P Information New onset A. fib with RVR TSH normal, hypomagnesemia noted Patient does endorse abnormal sleep pattern never had any sleep study PE less likely D-dimer unremarkable Currently on Cardizem drip 10 mg/h her [id number] is 6, will add Eliquis 5 mg twice a day Echo in the morning Uncontrolled type 2 diabetes Complicated with neuropathy and CVA in the past We will check hemoglobin A1c level continue Lantus 10 units along moderate sliding scale Hypomagnesemia most likely due to diarrhea Endorses diarrhea after taking Metformin Magnesium repleted Full code Cardiac/consistent carb diet DVT prophylaxis Eliquis [place] New onset A. fib with RVR. Converted back to sinus. Diltiazem drip is discontinued. Cardiac consult. Appreciate dr Dowell's input. Eliquis is ordered. Diabetes. Continue Lantus and insulin sliding scale. Dyslipidemia. Continue atorvastatin. Hypomagnesemia. Replaced. Recheck in the morning. Continue replacement The plan of care was discussed with the patient. She verbalized understanding and agreement Attestations Medical Necessity Statement*: Probably will be able to discharge the patient tomorrow. Coding Level of Care Code Acute Cathead Operator for Annie Crocker Diagnoses New onset atrial fibrillation I48.91 Uncontrolled type 2 diabetes mellitus E11.65 Glycemic state: with hyperglycemia Hypomagnesemia E83.42
[2020-07-01 20:12] LABS: Glucose Point of Care 248 mg/dL (70-110)
[2020-07-02] VITALS (7 sets, daily range): BP systolic 122–148; BP diastolic 76–90; PULSE 65–83; RESP 14–22; TEMP 36.6–36.8; O2SAT 95–100
--- NOTE | 2020-07-02 01:13 | PC.NURSE ---
PT RESTING IN BED. PT DENIES PAIN. WILL CONTINUE TO MONITOR.
[2020-07-02 04:48] LABS: Basophils % 0.5 %; Eosinophils # 0.3 10^3/uL (0.0-0.8); Eosinophils % 3.3 %; Hemoglobin 13.1 g/dL (11.5-15.3); Lymphocytes # 1.9 10^3/uL (0.8-4.8); Lymphocytes % 24.3 %; Mean Corpuscular HGB Conc 32.8 g/dL (30.0-36.0); Mean Corpuscular Hemoglobin 30.3 pg (28.0-34.0); Mean Corpuscular Volume 92.4 fL (81-99); Monocytes # 0.8 10^3/uL (0.2-0.9); Monocytes % 10.6 %; Neutrophils # 4.78 10^3/uL (1.8-7.7); Nucleated Red Blood Cells % 0 %; Platelet Count 238 10^3/cmm (130-400); Red Blood Count 4.33 10^6/uL (4.1-5.3); Red Cell Distribution Width 12.6 % (12.1-15.1); White Blood Count 7.8 10^3/uL (4.0-10.0)
[2020-07-02 05:07] LABS: Albumin Level 3.2 g/dL (3.5-5.2); Anion Gap 12.2 (5-19); Blood Urea Nitrogen 18 mg/dL (8-23); Calcium 8.3 mg/dL (8.5-10.5); Carbon Dioxide 27 mmol/L (22-29); Chloride 102 mmol/L (98-107); Chol HDL Ratio 3.03 mg/dL (0.0-4.40); Cholesterol 109 mg/dL (0-200); Glomerular Filtration Rate 72.7 mL/min (90-130); Glucose 176 mg/dL (65-115); HDL Cholesterol 36 mg/dL (60-100); LDL Cholesterol Calculated 55 mg/dL (50-129); LDL HDL Ratio 1.53 RATIO (0.00-3.22); Potassium 4.2 mmol/L (3.5-5.1); Sodium 137 mmol/L (136-145); Triglycerides 90 mg/dL (0-150)
[2020-07-02 05:10] LABS: Magnesium 1.7 mg/dL (1.7-2.3)
--- NOTE | 2020-07-02 06:37 | PC.NURSE ---
PT IS RESTING IN BED. PT DENIES PAIN AT THIS TIME. WILL CONTINUE TO MONITOR.
[2020-07-02 06:42] LABS: Glucose Point of Care 168 mg/dL (70-110)
--- NOTE | 2020-07-02 07:29 | PC.NURSE ---
Pt transfered to [email or web address] in preparation for stress test.
[2020-07-02] MEDS: regadenoson 0.4 Mg/5 ml Syringe IVP (08:06)
[2020-07-02] MEDS: aspirin 81 mg EC Tablet PO (10:32)
[2020-07-02] MEDS: atorvastatin 40 mg Tablet 20 MG PO (10:33)
[2020-07-02] MEDS: dilTIAZem ER (24HR) 120 mg Capsule PO (10:33)
[2020-07-02] MEDS: apixaban 5 mg Tablet PO (10:34)
--- NOTE | 2020-07-02 10:42 | PC.NURSE ---
Pt returned to room from having stress test. Pt had no c/o pain or discomfort at the present time. No needs or request. Call light in reach. Will continue to monitor.
[2020-07-02 11:42] LABS: Glucose Point of Care 226 mg/dL (70-110)
--- NOTE | 2020-07-02 12:07 | PM.DCS ---
Discharge Providers Date of Admission: 07/01/20 04:18 Date of Discharge: July 02, 2020 Attending Provider at Admission: Alejandra Callaway MD Attending Provider at Discharge: Justin Tao Primary Care Provider: Salo Valladares MD Diagnoses at Discharge Discharge Diagnosis (1) New onset atrial fibrillation: Status: Acute (2) Uncontrolled type 2 diabetes mellitus: Status: Acute Qualifiers: Glycemic state: with hyperglycemia Qualified Code(s): E11.65 - Type 2 diabetes mellitus with hyperglycemia (3) Hypomagnesemia: Status: Acute Reason for Visit Reason for Visit: A FIB WITH RVR Hospital Course Hospital Course The patient is a 64-year-old female with past medical history of diabetes, hypertension who presented to emergency room with dizziness. She was found to have A. fib with RVR. Converted back to sinus after initial diltiazem drip. She was seen and evaluated by Dr. Dowell. Underwent nuclear stress test and echo. Results were unremarkable. Currently her symptoms have resolved. She was cleared for discharge. She will go home with p.o. diltiazem, Eliquis and will continue follow-up with the sales and catering coordinator and her primary care physician. She is instructed to come back to emergency room if she develops any similar or new symptoms. She was also asked to watch for any signs of potential bleeding since she is on Eliquis. She verbalized understanding and agreement. Today she is feeling well. Denies any active complaints. Denies dizziness or lightheadedness. No chest pain or palpitations. Awake alert oriented. No acute distress. Mood and affect are appropriate. Responses are adequate. Skin warm and dry. Moist extremities. Neck supple. No JVD Lungs clear. Heart S1, S2, regular Abdomen soft, nontender, bowel sounds are present Extremities. No calf tenderness bilaterally. No cyanosis. Mild pedal edema. Neuro exam is nonfocal. Discharge Data Data Completed and Pending: Completed Studies During Hospitalization Category Date Time Status Sestamibi Stress Test Request Routi ne Exams 07/01/20 15:50 Draft XR chest 1V samson ble [id number] Stat Exams 06/30/20 23:54 Completed NM damion perf SPECT r/s* [id number] Routin e Nuc Med 07/02/20 15:51 Completed CV echo complete* [id number] Routine Ultrasound 07/01/20 04:37 Completed Labs from last 24 hours 07/02/20 07/02/20 07/02/20 10:52 06:34 04:30 WBC 7.8 RBC 4.33 Hgb 13.1 Hct 40.0 MCV 92.4 MCH 30.3 MCHC 32.8 RDW 12.6 Plt Count 238 MPV 11.0 H Neut % (Auto) 61.0 Lymph % (Auto) 24.3 [place] % (Auto) 10.6 Eos % (Auto) 3.3 Baso % (Auto) 0.5 Neut # (Auto) 4.78 Lymph # (Auto) 1.9 [place] # (Auto) 0.8 Eos # (Auto) 0.3 Baso # (Auto) 0.0 Nucleated RBC % (a uto) 0 Nucleated RBCs # 0.0 Sodium Potassium Chloride Carbon Dioxide Anion Gap BUN Creatinine GFR Calculation Glucose POC Glucose 226 H 168 H Calcium Phosphorus Magnesium Albumin Triglycerides Cholesterol LDL Cholesterol, C alc HDL Cholesterol LDL/HDL Ratio Cholesterol/HDL Ra kathie 07/02/20 07/02/20 07/01/20 04:30 04:30 20:05 WBC RBC Hgb Hct MCV MCH MCHC RDW Plt Count MPV Neut % (Auto) Lymph % (Auto) [place] % (Auto) Eos % (Auto) Baso % (Auto) Neut # (Auto) Lymph # (Auto) [place] # (Auto) Eos # (Auto) Baso # (Auto) Nucleated RBC % (a uto) Nucleated RBCs # Sodium 137 Potassium 4.2 Chloride 102 Carbon Dioxide 27 Anion Gap 12.2 BUN 18 Creatinine 0.8 GFR Calculation 72.7 L Glucose 176 H POC Glucose 248 H Calcium 8.3 L Phosphorus 3.0 Magnesium 1.7 Albumin 3.2 L Triglycerides 90 Cholesterol 109 LDL Cholesterol, C alc 55 HDL Cholesterol 36 L LDL/HDL Ratio 1.53 Cholesterol/HDL Ra kathie 3.03 07/01/20 07/01/20 17:28 13:02 WBC RBC Hgb Hct MCV MCH MCHC RDW Plt Count MPV Neut % (Auto) Lymph % (Auto) [place] % (Auto) Eos % (Auto) Baso % (Auto) Neut # (Auto) Lymph # (Auto) [place] # (Auto) Eos # (Auto) Baso # (Auto) Nucleated RBC % (a uto) Nucleated RBCs # Sodium Potassium Chloride Carbon Dioxide Anion Gap BUN Creatinine GFR Calculation Glucose POC Glucose 242 H 267 H Calcium Phosphorus Magnesium Albumin Triglycerides Cholesterol LDL Cholesterol, C alc HDL Cholesterol LDL/HDL Ratio Cholesterol/HDL Ra kathie Vitals: Last Vital Signs Temp 98.0 F 07/02/20 10:53 Pulse 72 07/02/20 10:53 Resp 17 07/02/20 10:53 BP 129/82 07/02/20 10:53 Pulse Ox 100 07/02/20 10:53 Discharge Plan Discharge Patient Disposition: Home Condition: Stable Prescriptions: New diltiazem HCl 120 mg Capsule,Extended Release 24hr 120 mg PO DAILY Qty: 30 RF: 0 Eliquis 5 mg Tablet 5 mg PO BID@899,2099 Qty: 60 RF: 0 Continued simvastatin 10 mg tablet 10 mg PO DAILY RF: 0 Lantus U-100 Insulin 100 unit/mL Solution 25 unit SUBCUT DAILY@899 RF: 0 metformin 500 mg tablet 500 mg PO BID@ RF: 0 paroxetine HCl 20 mg tablet 40 mg PO DAILY@2099 RF: 0 cholecalciferol (vitamin D3) [Vitamin D3] 125 mcg (5,000 unit) Tablet 250 mcg PO DAILY@2099 RF: 0 magnesium 1 tab PO DAILY@2099 RF: 0 Discontinued carvedilol 3.125 mg tablet 3.125 mg PO BID@ RF: 0 aspirin [Aspir-81] 81 mg Tablet,Delayed Release (Dr/Ec) 81 mg PO DAILY@2099 RF: 0 Discharge Orders: Discharge Order (Routine); Ordered 07/02/20 Ordered By: Justin Tao Referrals: Arti Dowell MD [Physician] - 2 weeks Salo Valladares MD [Primary Care Provider] - 2 weeks Discharge Diet: Cardiac and Low Cholesterol Discharge Activity: Resume usual activity Patient Instructions: Apixaban (By mouth), Atrial Fibrillation (DC) Activity Restrictions/Additional Instructions: Please come back to emergency room if develop any chest pain, palpitations, dizziness or lightheadedness, weakness, any signs of bleeding, or any other new symptoms. 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
--- NOTE | 2020-07-02 12:16 | P.PN_ITS ---
Subjective Subjective: Interval history: She underwent stress test this morning Medications: Reviewed: Yes Vitals/I&O/Wt Last Vital Signs Temp 98.0 F 07/02/20 10:53 Pulse 72 07/02/20 10:53 Resp 17 07/02/20 10:53 BP 129/82 07/02/20 10:53 Pulse Ox 100 07/02/20 10:53 07/01/20 07/02/20 07/02/20 22:59 06:59 14:59 Intake Total 360 / 436.083 Balance 360 / 436.083 Weight last 48 hrs Weight 317 lb Physical Exam Narrative: EXAM NARRATIVE: GENERAL: Morbidly obese woman lying in bed in no acute distress HEENT: Extraocular movement intact. Pupils equal round reactive to light. No pallor or icterus. NECK: central trachea, No JVD appreciated. CARDIOVASCULAR SYSTEM: S1-S2 regular. No S3 or S4 present. No murmur rubs or gallops. RESPIRATORY SYSTEM: Chest clear to auscultation. No wheezes rhonchi or rubs heard. No use of accessory muscles. ABDOMEN: Soft, nontender and nondistended. Normal bowel sounds present. EXTREMITIES: No cyanosis or clubbing. No edema. No signs of chronic venous insufficiency. 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 No focal neurological deficits. SKIN: Normal turgor and temperature. No breakdown, rash or nail changes noted. PSYCH: Normal insight and judgment. Data : 07/02/20 04:30 07/02/20 04:30 Attestation for Other Data: I personally reviewed and interpreted the following: Other data: Lexiscan sestamibi MPI (07/02/20) IMPRESSIONS 1. Small sized paradoxical perfusion abnormality of apical inferior and apical lateral siegel. This is suggestive of attenuation artifact. 2. Overall left ventricular systolic function is normal without regional wall motion abnormalities. 3. The left ventricular ejection fraction is normal with a value of 86%. 4. Scan indicates low risk for cardiac events. 5. No prior similar studies to compare. TTE (07/01/20) CONCLUSIONS 1. This is a technically very difficult study. 2. Normal left ventricular cavity size and systolic function. Left ventricular ejection fraction is estimated at 60-65 %. No diagnostic regional wall motion abnormalities. Grade II diastolic dysfunction, moderately elevated filling pressures. 3. Normal right ventricular size and systolic function. 4. Mildly increased left atrial size. 5. No prior similar studies to compare. A&P Assessment and plan (1) New onset atrial fibrillation: [id number] =5/9; 1 for hypertension, 1 for female sex, 1 for diabetes and 2 for CVA. EKG on arrival showed A. fib with RVR with heart rate at 116 bpm, right bundle branch block and left anterior fascicular block. Possible anterior PR of interim indeterminate age. -He was started on Cardizem drip that has since been stopped. Patient has now converted back to sinus rhythm. -started on Cardizem 120 mg p.o. daily and Eliquis 5 mg p.o. twice daily. -Normal TSH, normal potassium. -Normal LV function on echocardiogram. Mildly increased LA size. -f/u with me in [facility] in 1 month. Status: Resolved (2) Dyspnea on exertion: Given multiple CAD risk factors, she had stress test in am. -No ischemia on stress test. Status: Resolved (3) Hypertension: BP/HR log and changes based on that Qualifiers: Hypertension type: essential hypertension Qualified Code(s): I10 - Essential (primary) hypertension (4) Hyperlipidemia: Qualifiers: Hyperlipidemia type: mixed hyperlipidemia Qualified Code(s): E78.2 - Mixed hyperlipidemia (5) Uncontrolled type 2 diabetes mellitus: Qualifiers: Glycemic state: with hyperglycemia Qualified Code(s): E11.65 - Type 2 diabetes mellitus with hyperglycemia (6) Morbid obesity with BMI of 50.0-59.9, adult: Additional A&P Information Diabetic neuropathy Morbid obesity Bifascicular block leukocytosis: resolved Hypomagnesemia : replaced Suspect SHAHID: plan for sleep study as an outpatient Thank you for allowing me to participate in patient's care. Please feel free to call with questions or concerns. Attestations Medical Necessity Statement*: Stable to be discharged home. Time Spent in Patient Care: 16 - 35 minutes Coding Level of Care Code Acute Dispatch Lead for Annie Crocker Diagnoses New onset atrial fibrillation I48.91 Dyspnea on exertion R06.00 Hypertension I10 Hypertension type: essential hypertension Hyperlipidemia E78.2 Hyperlipidemia type: mixed hyperlipidemia Uncontrolled type 2 diabetes mellitus E11.65 Glycemic state: with hyperglycemia Morbid obesity with BMI of 50.0-59.9, adult E66.01; Z68.43
--- NOTE | 2020-07-02 14:11 | PC.NURSE ---
Pt discharged home. IV removed no redness or swelling noted. Pts discharge instructions given along with prescriptions and follow up appointment. Pt verbalized understanding. Pt had no c/o pain or discomfort at the time of discharge. Pt transferred out via wheel chair accompanied by staff.
--- NOTE | 2020-07-02 15:51 | NMCV_ITS ---
NM damion perf SPECT r/s* [id number] Emma Nguyen Age: 64 Gender: F : 1955 Exam Date: 07/02/2020 15:51 Ordering Phys: Arti Dowell MD ([email or web address]) Technologist: RAJINDER Hoover Exam Location: [facility] Indications: AFIB WITH RVR, Dyspnea on exertion STRESS TEST [facility] IMAGE PROTOCOL Rest/Stress 1 Lexiscan Day Radiopharmaceutical Dose (mCi) Administration Site Administered by Rest: Tc-99m 11.0 IV RAJINDER Grayson Sestamibi Stress:Tc-99m 32.7 IV RAJINDER Grayson Sestamibi Rest: 02-Jul-2020 60 Discovery 630 Stress: 02-Jul-2020 30 Discovery 630 0.4mg Lexiscan. Images obtained in supine and prone position. SPECT RESULTS Technical Quality: Excellent Raw Data Analysis: Normal Image Corrections: No attenuation or motion correction applied Summed Stress Score: 0 Summed Rest Score: 2 Summed Difference Score: 0 PERFUSION FINDINGS Small sized perfusion abnormality of apical inferior and apical lateral siegel on rest images with improved tracer uptake on stress images. FUNCTIONAL RESULTS (calculated via Gated SPECT) Stress Image LV EF (%): 86 Stress EDV (mL):71 TID: 0.82 Stress ESV (mL):10 FUNCTIONAL FINDINGS: The left ventricle is normal in size. Transient Ischemia Dilatation of 0.82. There is normal left ventricular systolic function. The left ventricular ejection fraction is normal with a value of 86%. There is normal left ventricular wall thickening with no regional wall abnormalities. Normal end diastolic and end systolic volumes. IMPRESSIONS 1. Small sized paradoxical perfusion abnormality of apical inferior and apical lateral siegel. This is suggestive of attenuation artifact. 2. Overall left ventricular systolic function is normal without regional wall motion abnormalities. 3. The left ventricular ejection fraction is normal with a value of 86%. 4. Scan indicates low risk for cardiac events. 5. No prior similar studies to compare. Arti Dowell MD (Electronically Signed) Final Date: 02 July 2020 11:31 S
== END 2020-07-02 14:10 | disposition home or self-care (01) ==
LOC: ER 07-01 00:26 → ER IP 07-01 04:19 → CSU 07-01 14:18
PROVIDERS: Internal Medicine Cardiovascular Disease; Admitting Provider Internal Medicine; Emergency Provider Emergency Medicine; PCP Family Medicine; Visit Provider Internal Medicine
DX: I48.91 Unspecified atrial fibrillation (principal); E11.65 Type 2 diabetes mellitus with hyperglycemia; E83.42 Hypomagnesemia; Z79.84 Long term (current) use of oral hypoglycemic drugs; R06.00 Dyspnea, unspecified; I10 Essential (primary) hypertension; E78.2 Mixed hyperlipidemia; E66.01 Morbid (severe) obesity due to excess calories; Z68.43 Body mass index [BMI] 50.0-59.9, adult; E11.40 Type 2 diabetes mellitus with diabetic neuropathy, unspecified; Z86.73 Personal history of transient ischemic attack (TIA), and cerebral infarction without residual deficits; Z90.49 Acquired absence of other specified parts of digestive tract
CPT/HCPCS: 36415; 36416; 71045; 78452; 80053; 80061; 80069; 82962; 83036; 83735; 83880; 84443; 84484; 85025; 85378; 85610; 90471; 90686; 93005; 93017; 93306; 96365; 96366; 96367; 96372; 99285; A9500; G0378; J1815; J2785; J3490; J7030

== ENCOUNTER → 2020-07-07 10:28 | Outpatient (BNVA) | payer MEDICAID, SELFPAY | PROVIDERS: PCP Family Medicine; Visit Provider Internal Medicine | DX: E11.40 Type 2 diabetes mellitus with diabetic neuropathy, unspecified (principal); E11.65 Type 2 diabetes mellitus with hyperglycemia; E66.01 Morbid (severe) obesity due to excess calories; Z68.43 Body mass index [BMI] 50.0-59.9, adult; E78.2 Mixed hyperlipidemia; I10 Essential (primary) hypertension | CPT/HCPCS: 99213 ==

== ENCOUNTER → 2021-06-30 09:42 | Outpatient (BNVA) | payer MEDICAID, SELFPAY | PROVIDERS: PCP Family Medicine; Visit Provider Emergency Medicine | DX: M25.562 Pain in left knee (principal); W10.8XXA Fall (on) (from) other stairs and steps, initial encounter; M79.662 Pain in left lower leg; M17.12 Unilateral primary osteoarthritis, left knee | CPT/HCPCS: 73562; 73590 ==

== ENCOUNTER → 2021-08-27 17:08 | Outpatient (BNVA) | payer MEDICAID, SELFPAY | PROVIDERS: PCP Family Medicine; Visit Provider Emergency Medicine | DX: J02.9 Acute pharyngitis, unspecified (principal); J06.9 Acute upper respiratory infection, unspecified; J40 Bronchitis, not specified as acute or chronic | CPT/HCPCS: 87880 ==

== ENCOUNTER 2021-09-21 20:02 | Emergency (ER) | payer MEDICAID, SELFPAY ==
[2021-09-21 20:28] VITALS: BP 158/105; PULSE 79; RESP 14; TEMP 36.7; O2SAT 99; BMI 52.0
--- NOTE | 2021-09-21 20:40 | ED_ITS ---
HPI - Female Genitourinary General: Chief complaint: Urogenital-Female Stated complaint: Blood Clots and Blood Clots in Urine Time Seen by Provider: 09/21/21 20:40 History of Present Illness: Patient is a 65-year-old female comes to the ED with blood in her urine. Symptoms started this afternoon. She says she urinated and felt some discomfort and pain while urinating. She then noticed she had blood in her urine. She denies any flank pain, abdominal or bladder pain. She only has pain when she urinates and describes it as a stinging burning pain. She states that she has had this 2 other times in the last 8 months and says it usually lasts for approximately 24 hours then resolves on its own. Patient is on Eliquis. Denies any fever, nausea or vomiting. No active bleeding currently. Associated symptoms: Deny abdominal pain, headache(s) or nausea Review of Systems Const: Denies: fever(s), chills or fatigue Eyes: Denies: change in vision or eye discomfort ENMT: Denies: throat pain, odynophagia, nasal discharge or nasal congestion Card: Denies: chest pain, palpitations, edema, swelling of feet/ankles, dyspnea on exertion or orthopnea Resp: Denies: dyspnea, productive cough or non-productive cough GI: Denies: abdominal pain, nausea, vomiting, diarrhea, constipation or hematochezia : Reports: dysuria and hematuria; Denies: flank pain Musc: Denies: neck pain, back pain or extremity swelling Skin/Breast: Denies: rash or new lesions Neuro: Denies: headache(s), numbness in extremities or weakness in extremities [facility] PFSH: Medical History Atrial fibrillation Colon cancer CVA (cerebral vascular accident) Diabetes mellitus Hyperlipidemia Hypertension Hypomagnesemia Morbid obesity with BMI of 50.0-59.9, adult Uncontrolled type 2 diabetes mellitus Surgical History H/O carpal tunnel repair Hx of cholecystectomy S/P colon resection Family History Other Obesity Social History Smoking and tobacco status: never smoked Alcohol intake: never Female Reproductive History: Spontaneous abortions: No Physical Exam Const: COMMON NORMALS: no acute distress, patient oriented x3 and alert GENERAL APPEARANCE: cooperative and comfortable HENMT: COMMON NORMALS: normocephalic HEAD & SCALP: normocephalic MOUTH: Normal oral and palatal mucosa present THROAT: posterior oropharynx normal and uvula midline Neck/C-Spine: COMMON NORMALS: supple GENERAL: Yes normal visual inspection Resp: COMMON NORMALS: normal respiratory effort, No retractions, No use of accessory muscles and clear to auscultation bilaterally AUSCULTATION: clear to auscultation bilaterally Cardio: COMMON NORMALS: regular rate, regular rhythm, S1 normal heart sound present, S2 normal heart sound present, No gallops present (Cardio), No clicks present (Cardio), No murmurs present (Cardio) and Peripheral pulses 2+ throughout RATE: regular rate RHYTHM: regular rhythm HEART SOUNDS: S1 normal heart sound present and S2 normal heart sound present PERIPHERAL PULSES: Peripheral pulses 2+ throughout GI: COMMON NORMALS: Normal to inspection, nondistended, normoactive bowel sounds present, Soft to palpation, non-tender and no masses PALPATION: Yes Soft to palpation : COMMON NORMALS: Yes no CVA tenderness BLADDER/KIDNEY EXAM: Yes no CVA tenderness Back/Pelvis: COMMON NORMALS: no CVA tenderness Extremity: COMMON NORMALS: normal to inspection Neuro: COMMON NORMALS: patient oriented x3 and moves all extremities SENSORIUM/ORIENTATION: Yes alert Skin: GENERAL SKIN EXAM: dry skin Course Vital Signs: Vital signs: Vital Signs Temperature 98.2 F 09/22/21 00:33 Pulse Rate 76 09/22/21 00:33 Respiratory Rate 18 09/22/21 00:33 Blood Pressure 149/99 09/22/21 00:33 Pulse Oximetry 99 09/22/21 00:33 [facility] - Female Medical Decision Making Patient is a 65-year-old female comes to the ED with UTI symptoms. She is hematuria dysuria. Vitals are stable. Patient appears nontoxic in no acute distress or pain. UA shows signs of infection. Patient was diagnosed with a UTI and was discharged home with a prescription for ciprofloxacin. She was told to follow-up with her PCP within the next 3 to 5 days for reevaluation. Return to ED precautions given. Patient understood and agreed with plan. Lab Data I reviewed the patient's lab results. Laboratory Results Urine Color Red (Yellow) 09/21/21 23:05 Urine Appearance Turbid (CLEAR) 09/21/21 23:05 Urine pH 6.5 (5-7) 09/21/21 23:05 Ur Specific [place] 1.020 (1.005-1.030) 09/21/21 23:05 Urine Protein 3+ (Negative) H 09/21/21 23:05 Urine Glucose (UA) Trace (Normal) H 09/21/21 23:05 Urine Ketones Negative (Negative) 09/21/21 23:05 Urine Blood 3+ (Negative) H 09/21/21 23:05 Urine Nitrate Positive (Negative) H 09/21/21 23:05 Urine Bilirubin Neg (Negative) 09/21/21 23:05 Urine Urobilinogen 1 mg/dL (Negative) H 09/21/21 23:05 Ur Leukocyte Esterase 2+ (Negative) H 09/21/21 23:05 Urine RBC >100 /hpf (0-2) H 09/21/21 23:05 Urine WBC >100 /hpf (0-5) H 09/21/21 23:05 Ur Squamous Epith Cells 0-4 /hpf (0-5) H 09/21/21 23:05 Amorphous Sediment Not Reportable 09/21/21 23:05 Urine Bacteria 1+ /hpf (NONE) H 09/21/21 23:05 Discharge Plan Discharge Patient Disposition: Home Clinical Impression: Urinary tract infection Qualifiers: Urinary tract infection type: acute cystitis Hematuria presence: with hematuria Qualified Code(s): N30.01 - Acute cystitis with hematuria Condition: Stable Prescriptions: New ciprofloxacin HCl 500 mg tablet 500 mg PO BID 7 Days Qty: 14 0RF No Action fluconazole 150 mg tablet 150 mg PO DAILY PRN0RF Rx Instructions: Take one tablet by mouth diltiazem HCl 120 mg capsule,extended release 24hr 120 mg PO DAILY Qty: 90 3RF flecainide 100 mg tablet 100 mg PO .COMPLEX Qty: 14 2RF Rx Instructions: 100 mg PO; Take 2 tabs as needed for atrial fibrillation episode; may take another 1 tab 1 hour later call our office diphenhydramine HCl [Benadryl] 25 mg capsule 25 mg PO TID PRN0RF [id number] [Bromfed DM] 2-30-10 mg/5 mL syrup 7.5 ml PO Q6H PRN (Reason: cold symptoms) Qty: 160 0RF cephalexin 750 mg capsule 750 mg PO BID Qty: 20 0RF Januvia 100 mg tablet 100 mg PO DAILY Qty: 90 3RF Rx Instructions: Take one tablet by mouth daily. Lantus Solostar U-100 Insulin 100 unit/mL (3 mL) insulin pen 36 unit SUBCUT QAM Qty: 30 3RF Rx Instructions: Inject 36 units subcut daily. Eliquis 5 mg tablet 5 mg PO BID@0900,2100 Qty: 180 3RF paroxetine HCl 20 mg tablet 40 mg PO DAILY@2100 0RF cholecalciferol (vitamin D3) [Vitamin D3] 125 mcg (5,000 unit) Tablet 250 mcg PO DAILY@2100 0RF magnesium 250 1 tab PO DAILY@2100 0RF Discharge Orders: Discharge ED (Routine); Ordered 09/21/21 Ordered By: Salo Durán Referrals: Salo Valladares MD [Primary Care Provider] - Discharge Diet: Regular Discharge Activity: Increase activity as tolerated Patient Instructions: Urinary Tract Infection in Women (DC) Activity Restrictions/Additional Instructions: Follow-up with medical provider as directed in the next 3 to 5 days for reevaluation. Take medications as prescribed. Return to the ER or your medical provider if condition worsens. Please read and understand discharge instructions. Thank you for choosing [facility] for your healthcare needs today. Please realize this is an emergency room and that we are providing you with a medical screening exam and this may not be complete and all inclusive of all the testing and or work up that you may need to determine your ailment or severity of your illness. It is very important that you follow up as instructed or that you return to the Emergency Department should you have concerns or if your condition changes or worsens in any way. Coding Level of Care Code ED Director [employer] for Annie Crocker Exam Comprehensive
[2021-09-21 23:17] LABS: Bilirubin Urine Neg (Negative); Blood Urine 3+ (Negative); Glucose Urine UA Trace (Normal); Ketones Urine Negative (Negative); Nitrate Urine Positive (Negative); Protein Urine 3+ (Negative); Urine Appearance Turbid (CLEAR); Urine Color Red (Yellow); pH Urine 6.5 (5-7)
[2021-09-21 23:18] LABS: Add Urine Microscopic? YES; Leukocyte Esterase Urine 2+ (Negative); Urobilinogen Urine 1 mg/dL (Negative)
[2021-09-21 23:23] LABS: RBC Urine >100 /hpf (0-2); WBC Urine >100 /hpf (0-5)
[2021-09-21 23:24] LABS: Add Urine Culture? Yes; Bacteria Urine 1+ /hpf; Squamous Epithelial Cell Urine 0-4 /hpf (0-5)
[2021-09-22] MEDS: ciprofloxacin 500 mg Tablet PO (00:08)
[2021-09-22 00:33] VITALS: BP 149/99; PULSE 76; RESP 18; TEMP 36.8; O2SAT 99
== END 2021-09-22 00:34 | disposition home or self-care (01) ==
PROVIDERS: Emergency Provider Physician Assistant; PCP Family Medicine
DX: N30.01 Acute cystitis with hematuria (principal); Z79.4 Long term (current) use of insulin; Z79.01 Long term (current) use of anticoagulants
CPT/HCPCS: 81001; 87086; 99283

== ENCOUNTER → 2021-12-08 14:13 | Outpatient (BNVA) | payer MEDICAID, SELFPAY | PROVIDERS: PCP Family Medicine; Visit Provider Family Medicine | DX: E11.9 Type 2 diabetes mellitus without complications (principal); E83.42 Hypomagnesemia; I10 Essential (primary) hypertension; E78.5 Hyperlipidemia, unspecified; E55.9 Vitamin D deficiency, unspecified; E11.40 Type 2 diabetes mellitus with diabetic neuropathy, unspecified; R31.9 Hematuria, unspecified; R30.0 Dysuria; N39.0 Urinary tract infection, site not specified; M65.319 Trigger thumb, unspecified thumb | CPT/HCPCS: 80053; 80061; 81003; 82652; 83036; 83735; 85025; 87086 ==

== ENCOUNTER 2021-12-25 13:08 | Inpatient (IN) | payer MEDICAID, SELFPAY ==
[2021-12-25] VITALS (28 sets, daily range): BP systolic 96–156; BP diastolic 58–127; PULSE 57–153; RESP 12–26; TEMP 36.8; O2SAT 82–98; BMI 52.0
--- NOTE | 2021-12-25 13:17 | ECG_ITS ---
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 Measurements Intervals [place]y Rate: 154 P: ME: QRS: 244 QRSD: 121 T: 28 QT: 282 QTc: 452 Interpretive Statements ATRIAL FLUTTER/TACHYCARDIA WITH RAPID VENTRICULAR RESPONSE WITH ABERRANT CONDUCTION OR VENTRICULAR PREMATURE COMPLEXES RIGHT AXIS DEVIATION QRS AXIS > 100 RIGHT BUNDLE BRANCH BLOCK 120+ ms QRS DURATION, UPRIGHT V1, 40+ ms S IN I/aVL/V4/V5/V6 POSSIBLE ANTERIOR MYOCARDIAL INFARCTION , PROBABLY OLD 30 ms Q WAVE IN V3/V4, OR R < 0.2 mV IN V4 CRITICAL TEST RESULT Compared to ECG 07/01/2020 06:07:07 Ventricular premature complex(es) now presentRight-axis deviation now present Sinus rhythm no longer present First degree AV block no longer present Left-axis deviation no longer present. Myocardial infarct finding still present Electronically Signed On 12-25-2021 18:29:35 CDT by Silverio Youngblood M.D. [id number]
--- NOTE | 2021-12-25 13:34 | W.ED.ARRPALP ---
HPI - Arrhythmia/Palpitations General: Chief Complaint: Arrhythmia/Palpitations Stated Complaint: afib Time Seen by Provider: 12/25/21 13:14 Source: patient Mode of arrival: ambulatory Limitations: no limitations History of Present Illness: 66-year-old female who states she has a history of A. fib with RVR. States that today she started having palpitations she checked her heart rate was in the 150s states she is having some heaviness and shortness of breath. States that she gets like this when she is in A. fib with RVR. She is on flecainide along with blood thinners. She did not take her flecainide today. Associated symptoms: Deny nausea or vomiting Review of Systems Const: Denies: fever(s), chills, body aches or change in appetite Eyes: Denies: blurry vision or eye discomfort ENMT: Denies: throat pain or dental pain Card: Reports: palpitations and irregular heart rhythm Resp: Denies: dyspnea GI: Denies: abdominal pain, nausea, vomiting or diarrhea : Denies: dysuria Musc: Denies: neck pain or back pain Skin/Breast: Denies: rash Neuro: Denies: headache(s) Psych: Denies: depression Daquan/Lymph: Denies: easy bruising All/Imm: Denies: urticaria PFSH ED PFSH: Medical History Atrial fibrillation Colon cancer CVA (cerebral vascular accident) Diabetes mellitus Hyperlipidemia Hypertension Hypomagnesemia Morbid obesity with BMI of 50.0-59.9, adult Uncontrolled type 2 diabetes mellitus Surgical History H/O carpal tunnel repair Hx of cholecystectomy S/P colon resection Family History Other Obesity Social History Smoking and tobacco status: never smoked Alcohol intake: never Female Reproductive History: Spontaneous abortions: No Physical Exam Const: COMMON NORMALS: no acute distress, patient oriented x3 and healthy appearing HENMT: COMMON NORMALS: normocephalic and atraumatic HEAD & SCALP: normocephalic and atraumatic Eye: COMMON NORMALS: Equal, round and reactive pupils present and EOMs intact bilaterally PUPIL: Yes Equal, round and reactive pupils present Neck/C-Spine: COMMON NORMALS: full ROM and supple Chest: COMMONS NORMALS: normal inspection of the chest and normal palpation of entire chest wall Resp: COMMON NORMALS: normal respiratory effort, No retractions, No use of accessory muscles and clear to auscultation bilaterally AUSCULTATION: clear to auscultation bilaterally Cardio: COMMON NORMALS: No murmurs present (Cardio) RATE: tachycardic RHYTHM: abnormal rhythm irregularly irregular GI: COMMON NORMALS: Normal to inspection, nondistended, normoactive bowel sounds present, Soft to palpation, non-tender and no masses PALPATION: Yes Soft to palpation Extremity: COMMON NORMALS: normal to inspection and full ROM Neuro: COMMON NORMALS: patient oriented x3, moves all extremities and no focal motor deficits Psych: COMMON NORMALS: mental status grossly normal, Normal thought process present and cooperative THOUGHT PROCESS: Normal thought process present Skin: COMMON NORMALS: no rashes or lesions noted and no wounds GENERAL SKIN EXAM: no rashes or lesions noted Course Vital Signs: Vital signs: Vital Signs Temperature 98.3 F 12/25/21 13:16 Pulse Rate 102 H 12/25/21 15:00 Respiratory Rate 21 H 12/25/21 15:00 Blood Pressure 116/78 12/25/21 15:00 Pulse Oximetry 98 12/25/21 15:00 Oxygen Delivery Me thod 12/25/21 13:41 MDM - Arrhythmia/Palpitations Medical Decision Making Patient presents with Patsy song with RVR I did give her flecainide here along with Cardizem bolus she did have decreased rate to the 90s but bounced back is currently in the 130s we will start on a Cardizem drip initial labs here are normal spoke to the hospitalist and will admit at this time to cardiac stepdown on the cardiac drip. Lab Data : 12/25/21 13:40 12/25/21 13:40 Radiology Impressions Chest X-Ray 12/25/21 13:45 IMPRESSION: No acute chest abnormality. Laboratory Results WBC 9.8 10^3/uL (4.0-10.0) 12/25/21 13:40 RBC 5.32 10^6/uL (4.1-5.3) H 12/25/21 13:40 Hgb 16.1 g/dL (11.5-15.3) H 12/25/21 13:40 Hct 48.4 % (37.0-47.0) H 12/25/21 13:40 MCV 91.0 fl (81-99) 12/25/21 13:40 MCH 30.3 pg (28.0-34.0) 12/25/21 13:40 MCHC 33.3 g/dL (30.0-36.0) 12/25/21 13:40 RDW 12.1 % (12.1-15.1) 12/25/21 13:40 Plt Count 321 10^3/cmm (130-400) 12/25/21 13:40 MPV 11.2 fL (7.4-10.4) H 12/25/21 13:40 Neut % (Auto) 60.3 % 12/25/21 13:40 Lymph % (Auto) 29.7 % 12/25/21 13:40 [place] % (Auto) 6.9 % 12/25/21 13:40 Eos % (Auto) 2.0 % 12/25/21 13:40 Baso % (Auto) 0.8 % 12/25/21 13:40 Neut # (Auto) 5.91 10^3/uL (1.8-7.7) 12/25/21 13:40 Lymph # (Auto) 2.9 10^3/uL (0.8-4.8) 12/25/21 13:40 [place] # (Auto) 0.7 10^3/uL (0.2-0.9) 12/25/21 13:40 Eos # (Auto) 0.2 10^3/uL (0.0-0.8) 12/25/21 13:40 Baso # (Auto) 0.1 10^3/uL (0.0-0.1) 12/25/21 13:40 Nucleated RBC % (auto) 0 % 12/25/21 13:40 Nucleated RBCs # 0.0 /100WBC 12/25/21 13:40 Sodium 136 mmol/L (136-145) 12/25/21 13:40 Potassium 3.9 mmol/L (3.5-5.1) 12/25/21 13:40 Chloride 99 mmol/L (98-107) 12/25/21 13:40 Carbon Dioxide 23 mmol/L (22-29) 12/25/21 13:40 Anion Gap 17.9 (5-19) 12/25/21 13:40 BUN 20 mg/dL (8-23) 12/25/21 13:40 Creatinine 1.1 mg/dL (0.5-0.9) H 12/25/21 13:40 GFR Calculation 50.0 mL/min (90-130) L 12/25/21 13:40 Glucose 366 mg/dL (65-115) H 12/25/21 13:40 Calculated Osmolality 299 mOsm/kg (285-295) H 12/25/21 13:40 Calcium 9.3 mg/dL (8.5-10.5) 12/25/21 13:40 Total Bilirubin 0.4 mg/dL (0.15-1.2) 12/25/21 13:40 AST 16 U/L (0-32) 12/25/21 13:40 ALT 20 U/L (0-33) 12/25/21 13:40 Alkaline Phosphatase 79 IU/L (35-105) 12/25/21 13:40 Troponin T Baseline 22 ng/L (0-10) H 12/25/21 13:40 Total Protein 7.0 g/dL (6.6-8.7) 12/25/21 13:40 Albumin 4.1 g/dL (3.5-5.2) 12/25/21 13:40 Globulin 2.9 g/dL (1.3-4.6) 12/25/21 13:40 EKG Data EKG 1: I personally reviewed and interpreted this EKG as follows: EKG interpretation date: 12/25/21 EKG interpretation time: 13:17 Interpretation: afib hr [address] or t wve abnormalities qrs 121 qtc 369 Other EKG comments: Chest X-Ray 12/25/21 13:45 IMPRESSION: No acute chest abnormality. Critical Care Time Critical Care Time: Critical Care Time: Yes Total Critical Care Time: 40 Attestation: The high probability of a clinically significant, sudden or life threatening deterioration of the patient's cv system(s) required my full and direct attention, intervention and personal management. The critical care time is as shown. This time is in addition to time spent performing any reported procedures but includes the following: [x] Data and vital sign review and interpretation [x] Patient assessment, examination and intervention [x] Documentation [x] Medication orders and management Discharge Plan Discharge Patient Disposition: Admitted As Inpatient Clinical Impression: Atrial fibrillation with rapid ventricular response Condition: Stable Coding Level of Care Code ED Property Accountant for Annie Fwd Exam Comprehensive
[2021-12-25] MEDS: dilTIAZem 5 mg/mL SDV 5 mL 20 MG IVP (13:37)
[2021-12-25] MEDS: sodium chloride 0.9% 1,000 ML 999 ML IV (13:38)
--- NOTE | 2021-12-25 13:45 | XR_ITS ---
WS: [id number] XR chest 1V portable [id number] REASON FOR EXAM: sob FINDINGS: Chest is unchanged compared to 07/01/2020. Moderate tortuosity and ectasia of the thoracic aorta without aneurysmal dilatation. Normal heart size. Calcified granulomatous disease in both hemithoraces. No acute pulmonary parenchymal or pleural abnormality. Mild degenerative change in the mid and lower thoracic spine. XR/XR chest 1V portable [id number] IMPRESSION: No acute chest abnormality.
[2021-12-25 13:55] LABS: Basophils # 0.1 10^3/uL (0.0-0.1); Basophils % 0.8 %; Eosinophils # 0.2 10^3/uL (0.0-0.8); Hematocrit 48.4 % (37.0-47.0); Hemoglobin 16.1 g/dL (11.5-15.3); Lymphocytes # 2.9 10^3/uL (0.8-4.8); Lymphocytes % 29.7 %; Mean Corpuscular HGB Conc 33.3 g/dL (30.0-36.0); Mean Corpuscular Hemoglobin 30.3 pg (28.0-34.0); Mean Platelet Volume 11.2 fL (7.4-10.4); Monocytes # 0.7 10^3/uL (0.2-0.9); Monocytes % 6.9 %; Neutrophils # 5.91 10^3/uL (1.8-7.7); Neutrophils % 60.3 %; Nucleated Red Blood Cells % 0 %; Platelet Count 321 10^3/cmm (130-400); Red Blood Count 5.32 10^6/uL (4.1-5.3); Red Cell Distribution Width 12.1 % (12.1-15.1); White Blood Count 9.8 10^3/uL (4.0-10.0)
[2021-12-25] MEDS: flecainide 100 mg Tablet PO (14:02)
[2021-12-25 14:13] LABS: Alanine Aminotransferase 20 U/L (0-33); Albumin Level 4.1 g/dL (3.5-5.2); Alkaline Phosphatase 79 IU/L (35-105); Anion Gap 17.9 (5-19); Aspartate Amino Transferase 16 U/L (0-32); Blood Urea Nitrogen 20 mg/dL (8-23); Calcium 9.3 mg/dL (8.5-10.5); Carbon Dioxide 23 mmol/L (22-29); Chloride 99 mmol/L (98-107); Globulin 2.9 g/dL (1.3-4.6); Glucose 366 mg/dL (65-115); Osmolality Calculated 299 mOsm/kg (285-295); Potassium 3.9 mmol/L (3.5-5.1); Sodium 136 mmol/L (136-145); Total Bilirubin 0.4 mg/dL (0.15-1.2)
[2021-12-25 14:19] LABS: Troponin(5th) Baseline 22 ng/L (0-10)
--- NOTE | 2021-12-25 14:25 | PC.PHAR ---
pt states she takes care of her own medications-pt states she takes her meds normally around 21:00 pt states she forgot to take them so she took them at 3 am this morning-ext med history shows levothyroxine 88mcg daily,trazodone 150mg daily and crestor 10mg daily filled 12/21/21 30d/s dorian carbone filled at [facility] states never filled those medications for the pt and pt states she doesnt take those medications-
--- NOTE | 2021-12-25 15:12 | ECG_ITS ---
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 Measurements Intervals [place] Rate: 84 P: [place]: QRS: -85 QRSD: 122 T: 19 QT: 362 QTc: 429 Interpretive Statements ATRIAL FIBRILLATION RIGHT BUNDLE BRANCH BLOCK [120+ ms QRS DURATION, UPRIGHT V1, 40+ ms S IN I/aVL/V4/V5/V6] LEFT ANTERIOR FASCICULAR BLOCK [QRS AXIS <= -45, QR IN I, RS IN II] Compared to ECG 12/25/2021 13:17:48 Left anterior fascicular block now present Atrial flutter no longer present Ventricular premature complex(es) no longer present Right-axis deviation no longer present Myocardial infarct finding no longer present Electronically Signed On 12-25-2021 18:37:24 CDT by Silverio Youngblood M.D. [id number]
--- NOTE | 2021-12-25 16:46 | P.HP_ITS ---
Providers/Chief Complaint Admitting Physician: Clara Wakefield MD Primary Care Provider: Salo Valladares MD Chief Complaint: afib History of Present Illness Emma Nguyen is a 66 year old female with a past medical history of atrial fibrillation, currently on Cardizem 120 mg p.o. daily and flecainide as needed presenting to the hospital with complaints of palpitations and chest pain. Patient states she has been having increasing intermittent episodes of tachycardia over the past few months. This afternoon while being at rest, she started having 1 such episode in which she felt palpitations chest pain radiating into her back and short of breath. When symptoms did not resolve she presented to the ER. She was not able to take her as needed flecainide today. She was found to be in A. fib with RVR with heart rate of 150 bpm. She reports compliance with cardizem. No recent illnesses. Review of Systems General: Reports: 10 or more systems reviewed and unremarkable except in HPI and below Const: Denies: fever(s), chills or body aches Eyes: Denies: change in vision, blurry vision or photophobia ENMT: Reports: hoarseness; Denies: throat pain, enlarged tonsils, odynophagia or nasal congestion Card: Denies: chest pain, palpitations, irregular heart rhythm, edema, sw elling of feet/ankles, lightheadedness, pre-syncope, dyspnea on exertion or orthopnea Resp: Denies: dyspnea, productive cough, non-productive cough, wheezing, stridor, pain on inspiration, change in phlegm color, hemoptysis or chest congestion GI: Denies: abdominal pain, nausea, vomiting, hematemesis, coffee ground emesis, dysphagia, heartburn, diarrhea, constipation, GI cramping, change in stool character, hematochezia or melena : Denies: flank pain, difficulty voiding, dysuria, urinary frequency, urin divina urgency, urinary hesitancy or hematuria Musc: Denies: neck pain, back pain, extremity pain, joint swelling, joint warmth or deformity Neuro: Denies: headache(s), numbness in extremities, weakness in extremities, sensory changes, difficulty walking, frequent falls, dizziness, vertigo, behavioral changes, Slurred speech present or seizure-like activity Psych: Denies: anxiety, depression, suicidal ideation or homicidal ideation Endo: Denies: polyuria, polydipsia, tired all the time, cold intolerance or hot flashes Daquan/Lymph: Denies: easy bruising or easy bleeding Medications/Allergies Home Medications Medication Instructions Recorded Confirmed Last Taken Type cholecalciferol (vitamin D3) 125 250 mcg PO DAILY@209910/28/19 12/25/21 12/25/21 03:00 History mcg (5,000 unit) tablet (Vitamin D3) paroxetine HCl 20 mg tablet 40 mg PO DAILY@209910/28/19 12/25/21 12/25/21 03:00 History flecainide 100 mg tablet 100 mg PO .COMPLEX #14 tabs 06/04/21 12/25/21 Unknown Rx fluconazole 150 mg tablet 150 mg PO DAILY PRN yeast infection 06/04/21 12/25/21 Unknown History qsrmcwkxhscxujy-zfllnztwobusbhv-ZI 7.5 ml PO Q6H PRN cold symptoms 08/27/21 12/25/21 Unknown Rx 2 mg-30 mg-10 mg/5 mL oral syrup #160 mL (Bromfed DM) diphenhydramine HCl 25 mg capsule 25 mg PO TID PRN Allergy Symptoms 08/27/21 12/25/21 Unknown History (Benadryl) apixaban 5 mg tablet (Eliquis) 5 mg PO BID 12/25/21 12/25/21 12/25/21 03:00 History diltiazem HCl 120 mg 120 mg PO DAILY@12/25/21 12/25/21 12/25/21 03:00 History capsule,extended release 24 hr insulin glargine 100 unit/mL (3 36 unit SUBCUT DAILY@12/25/21 12/25/21 12/25/21 History mL) subcutaneous pen (Lantus Solostar U-100 Insulin) magnesium 250 mg tablet 250 mg PO DAILY@12/25/21 12/25/21 12/25/21 03:00 History sitagliptin 100 mg tablet (Januvia) 100 mg PO DAILY@12/25/21 12/25/21 12/25/21 03:00 History Allergies Allergy/AdvReac Type Severity Reaction Status Date / Time acetaminophen [From Percocet] Allergy Unknown Verified 08/27/21 14:20 codeine Allergy ADR-Cramping Verified 08/27/21 14:20 of the Muscles Iodinated Contrast Media Allergy ADR-Blurry Verified 08/27/21 14:20 Vision morphine Allergy ADR-Confusi Verified 08/27/21 14:20 on oxycodone [From Percocet] Allergy Unknown Verified 08/27/21 14:20 PFSH Acute PFSH: Medical History Atrial fibrillation Colon cancer CVA (cerebral vascular accident) Diabetes mellitus Hyperlipidemia Hypertension Hypomagnesemia Morbid obesity with BMI of 50.0-59.9, adult Uncontrolled type 2 diabetes mellitus Surgical History H/O carpal tunnel repair Hx of cholecystectomy S/P colon resection Family History Other Obesity Social History Smoking and tobacco status: never smoked Alcohol intake: never Female Reproductive History: Spontaneous abortions: No Vitals/I&O/Wt Last Vital Signs Temp 98.3 F 12/25/21 13:16 Pulse 78 12/25/21 15:57 Resp 22 H 12/25/21 15:57 BP 127/76 12/25/21 15:57 Pulse Ox 95 12/25/21 15:57 O2 Del Method 12/25/21 15:57 12/25/21 12/25/21 12/25/21 06:59 14:59 22:59 Intake Total 1005.5 / 1005.5 Balance 1005.5 / 1005.5 Weight last 48 hrs Weight 133.356 kg Physical Exam Narrative: General: No acute distress, AO x3 HEENT: PERRLA, pupils bilaterally equal and reactive, pallors not present Chest: Normal vesicular breath sounds, no added sounds, equal good air entry bilaterally CVS: S1-S2 regular, no murmurs, no tachycardia, no gallops, no rubs Abdomen: Soft, nontender, no organomegaly, bowel sounds present Neuro: No focal deficits, no facial deformity, AO x3, power 5/5 in all limbs Extremities: No edema clubbing or cyanosis Data : 12/25/21 13:40 12/25/21 13:40 A&P Assessment and plan (1) Atrial fibrillation with rapid ventricular response: A. fib with RVR heart rate 150. She received Cardizem 20 mg IV push in the ER, p.o. flecainide and p.o. metoprolol. She has been started on a Cardizem drip in the ER. Titrate Cardizem drip per protocol. Start overlap with Cardizem 60 mg p.o. every 6 hours. Patient currently takes 120 mg p.o. daily of Cardizem, will attempt to titrate up depending on blood pressure. As needed flecainide on hold for now, may need to start a daily dose if remains uncontrolled with a higher dose of Cardizem or if Cardizem remains limited by blood pressure. Continue Eliquis 5 mg p.o. twice daily Status: Acute Attestations Medical Necessity Statement*: Anticipate greater than 2 midnight admission for A. 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
[2021-12-25 16:59] LABS: Troponin 5 2HR 32.27 ng/L (0-10)
[2021-12-25 17:06] LABS: Troponin 5 2HR Delta 10.27 ABS# (0-10)
[2021-12-25 17:08] LABS: Glucose Point of Care 290 mg/dL (70-110)
[2021-12-25] MEDS: dilTIAZem 60 mg Tablet PO ×2 (17:09→21:47)
[2021-12-25] MEDS: insulin lispro 100 unit/1 mL SUBCUT ×2 (17:09→20:45)
[2021-12-25] MEDS: apixaban 5 mg Tablet PO (17:09)
--- NOTE | 2021-12-25 18:27 | PC.NURSE ---
SHIFT SUMMARY: PT HAS HAD A GOOD, UNEVENTFUL SHIFT. CURRENTLY, CARDIZEM DRIP IS RUNNING AT 5ML/HR. TITRATING PER PROTOCOL PER DOCTORS ORDER. PT IS A/O X4. SHE IS RESTING COMFORTABLY IN BED. NO COMPLAINTS OF PAIN AT THIS TIME. WILL CONTINUE TO MONITOR.
[2021-12-25 18:32] LABS: NT Pro B Type Natriuretic Pept 450 pg/mL (0-125)
--- NOTE | 2021-12-25 19:12 | ECG_ITS ---
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 Measurements Intervals [place] Rate: 63 P: 64 [place]: 280 QRS: -68 QRSD: 138 T: 9 QT: 428 QTc: 439 Interpretive Statements SINUS RHYTHM WITH FIRST DEGREE AV BLOCK RIGHT BUNDLE BRANCH BLOCK [120+ ms QRS DURATION, UPRIGHT V1, 40+ ms S IN I/aVL/V4/V5/V6] LEFT ANTERIOR FASCICULAR BLOCK [QRS AXIS <= -45, QR IN I, RS IN II] Compared to ECG 12/25/2021 15:29:09 First degree AV block now present Atrial fibrillation no longer present Electronically Signed On 12-26-2021 20:34:13 CDT by Donald Pierce M.D. [id number]
[2021-12-25 20:43] LABS: Glucose Point of Care 203 mg/dL (70-110)
[2021-12-25] MEDS: PARoxetine 20 mg Tablet 40 MG PO (20:45)
[2021-12-25 21:01] LABS: Troponin 5 6HR 28.15 ng/L (0-10)
[2021-12-25 21:02] LABS: Troponin 5 6HR Delta 6.15 ng/L (0-12)
[2021-12-26] VITALS (32 sets, daily range): BP systolic 97–145; BP diastolic 66–83; PULSE 54–65; RESP 13–19; TEMP 36.4–36.9; O2SAT 92–100
[2021-12-26 04:30] LABS: Basophils % 0.6 %; Eosinophils # 0.2 10^3/uL (0.0-0.8); Eosinophils % 2.6 %; Hematocrit 42.5 % (37.0-47.0); Hemoglobin 13.7 g/dL (11.5-15.3); Lymphocytes # 1.8 10^3/uL (0.8-4.8); Lymphocytes % 25.5 %; Mean Corpuscular HGB Conc 32.2 g/dL (30.0-36.0); Mean Corpuscular Volume 93.2 fl (81-99); Mean Platelet Volume 11.1 fL (7.4-10.4); Monocytes # 0.6 10^3/uL (0.2-0.9); Monocytes % 8.6 %; Neutrophils # 4.48 10^3/uL (1.8-7.7); Neutrophils % 62.3 %; Nucleated Red Blood Cells % 0 %; Platelet Count 251 10^3/cmm (130-400); Red Blood Count 4.56 10^6/uL (4.1-5.3); Red Cell Distribution Width 12.5 % (12.1-15.1); White Blood Count 7.2 10^3/uL (4.0-10.0)
[2021-12-26 04:55] LABS: Alanine Aminotransferase 16 U/L (0-33); Albumin Level 3.4 g/dL (3.5-5.2); Alkaline Phosphatase 68 IU/L (35-105); Anion Gap 14.2 (5-19); Aspartate Amino Transferase 15 U/L (0-32); Blood Urea Nitrogen 21 mg/dL (8-23); Calcium 8.6 mg/dL (8.5-10.5); Carbon Dioxide 26 mmol/L (22-29); Chloride 104 mmol/L (98-107); Globulin 2.8 g/dL (1.3-4.6); Glucose 218 mg/dL (65-115); Osmolality Calculated 298 mOsm/kg (285-295); Potassium 5.2 mmol/L (3.5-5.1); Sodium 139 mmol/L (136-145); Total Bilirubin 0.3 mg/dL (0.15-1.2); Total Protein 6.2 g/dL (6.6-8.7)
[2021-12-26] MEDS: insulin lispro 100 unit/1 mL SUBCUT ×2 (08:33→11:54)
[2021-12-26] MEDS: insulin glargine 100 units/1 mL 36 UNIT SUBCUT (08:33)
[2021-12-26] MEDS: apixaban 5 mg Tablet PO (08:34)
[2021-12-26 11:37] LABS: Glucose Point of Care 194 mg/dL (70-110)
--- NOTE | 2021-12-26 15:59 | P.DS_ITS ---
Discharge Providers Date of Admission: 12/25/21 15:31 Date of Discharge: December 26, 2021 Attending Provider at Admission: Clara Wakefield MD Attending Provider at Discharge: Clara Wakefield MD Primary Care Provider: Salo Hollingsworth MD Diagnoses at Discharge Discharge Diagnosis (1) Atrial fibrillation with rapid ventricular response: Status: Acute Reason for Visit Reason for Visit: [facility] Hospital Course Hospital Course Emma Nguyen is a 66 year old female with a past medical history of atrial fibrillation, currently on Cardizem 120 mg p.o. daily and flecainide as needed presenting to the hospital with complaints of palpitations and chest pain.? Patient states she has been having increasing intermittent episodes of? tachycardia over the past few months.? This afternoon while being at rest, she started having 1 such episode in which she felt palpitations chest pain radiating into her back and short of breath.? When symptoms did not resolve she presented to the ER.? She was not able to take her as needed flecainide today.? She was found to be in A. fib with RVR with heart rate of 150 bpm.? She reports compliance with cardizem. No recent illnesses. No acute ST-T wave changes on EKG. Troponin was noted to be slightly elevated, however trending down at 2 and 6 hours, likely to be troponin leak from tachycardia. She received?Cardizem 20 mg IV push in the ER, p.o. flecainide and p.o. metoprolol.? She was started on Cardizem drip and converted into sinus rhythm in less than an hour after being on the drip. Her heart rate has remained between 60 to 65 bpm since then. Overlap with p.o. Cardizem was done. She is being discharged today with increased Cardizem dose of 180 mg p.o. daily (from 120 mg p.o. daily) and continue to take flecainide as needed. Follow-up as outpatient with Dr. Mohan within 7 to 10 days. Physical Exam Narrative: General: No acute distress, AO x3 HEENT: PERRLA, pupils bilaterally equal and reactive, pallors not present Chest: Normal vesicular breath sounds, no added sounds, equal good air entry bilaterally CVS: S1-S2 regular, no murmurs, no tachycardia, no gallops, no rubs Abdomen: Soft, nontender, no organomegaly, bowel sounds present Neuro: No focal deficits, no facial deformity, AO x3, power 5/5 in all limbs Discharge Data Studies Completed and Pending Completed Studies During Hospitalization Category Date Time Status CXRP [XR chest 1V portable [id number]] Stat Exams 12/25/21 13:45 Completed Radiology Impressions Chest X-Ray 12/25/21 13:45 IMPRESSION: No acute chest abnormality. Laboratory Results WBC 7.2 10^3/uL (4.0-10.0) 12/26/21 04:05 RBC 4.56 10^6/uL (4.1-5.3) 12/26/21 04:05 Hgb 13.7 g/dL (11.5-15.3) 12/26/21 04:05 Hct 42.5 % (37.0-47.0) 12/26/21 04:05 MCV 93.2 fl (81-99) 12/26/21 04:05 MCH 30.0 pg (28.0-34.0) 12/26/21 04:05 MCHC 32.2 g/dL (30.0-36.0) 12/26/21 04:05 RDW 12.5 % (12.1-15.1) 12/26/21 04:05 Plt Count 251 10^3/cmm (130-400) 12/26/21 04:05 MPV 11.1 fL (7.4-10.4) H 12/26/21 04:05 Neut % (Auto) 62.3 % 12/26/21 04:05 Lymph % (Auto) 25.5 % 12/26/21 04:05 [place] % (Auto) 8.6 % 12/26/21 04:05 Eos % (Auto) 2.6 % 12/26/21 04:05 Baso % (Auto) 0.6 % 12/26/21 04:05 Neut # (Auto) 4.48 10^3/uL (1.8-7.7) 12/26/21 04:05 Lymph # (Auto) 1.8 10^3/uL (0.8-4.8) 12/26/21 04:05 [place] # (Auto) 0.6 10^3/uL (0.2-0.9) 12/26/21 04:05 Eos # (Auto) 0.2 10^3/uL (0.0-0.8) 12/26/21 04:05 Baso # (Auto) 0.0 10^3/uL (0.0-0.1) 12/26/21 04:05 Nucleated RBC % (auto) 0 % 12/26/21 04:05 Nucleated RBCs # 0.0 /100WBC 12/26/21 04:05 Sodium 139 mmol/L (136-145) 12/26/21 04:05 Potassium 5.2 mmol/L (3.5-5.1) H 12/26/21 04:05 Chloride 104 mmol/L (98-107) 12/26/21 04:05 Carbon Dioxide 26 mmol/L (22-29) 12/26/21 04:05 Anion Gap 14.2 (5-19) 12/26/21 04:05 BUN 21 mg/dL (8-23) 12/26/21 04:05 Creatinine 0.9 mg/dL (0.5-0.9) 12/26/21 04:05 GFR Calculation 63.0 mL/min (90-130) L 12/26/21 04:05 Glucose 218 mg/dL (65-115) H 12/26/21 04:05 POC Glucose 194 mg/dL (70-110) H 12/26/21 11:33 Calculated Osmolality 298 mOsm/kg (285-295) H 12/26/21 04:05 Calcium 8.6 mg/dL (8.5-10.5) 12/26/21 04:05 Total Bilirubin 0.3 mg/dL (0.15-1.2) 12/26/21 04:05 AST 15 U/L (0-32) 12/26/21 04:05 ALT 16 U/L (0-33) 12/26/21 04:05 Alkaline Phosphatase 68 IU/L (35-105) 12/26/21 04:05 Troponin T Baseline 22 ng/L (0-10) H 12/25/21 13:40 Troponin T 120 Minute 32.27 ng/L (0-10) H 12/25/21 16:13 Delta Troponin T 10.27 ABS# (0-10) H* 12/25/21 16:13 Troponin T Hi Sens 6Hr 28.15 ng/L (0-10) H 12/25/21 20:25 Troponin T Hi Sens 6Hr Delta 6.15 ng/L (0-12) 12/25/21 20:25 NT-Pro-B Natriuret Pep 450 pg/mL (0-125) H 12/25/21 16:13 Total Protein 6.2 g/dL (6.6-8.7) L 12/26/21 04:05 Albumin 3.4 g/dL (3.5-5.2) L 12/26/21 04:05 Globulin 2.8 g/dL (1.3-4.6) 12/26/21 04:05 Vitals Last Vital Signs Temp 98.1 F 12/26/21 15:08 Pulse 64 12/26/21 15:08 Resp 15 12/26/21 15:08 BP 106/70 12/26/21 15:08 Pulse Ox 94 12/26/21 15:08 O2 Del Method 12/26/21 15:08 Discharge Plan Discharge Patient Disposition: Home Condition: Stable Prescriptions: Continued fluconazole 150 mg tablet 150 mg PO DAILY PRN (Reason: yeast infection) flecainide 100 mg tablet 100 mg PO .COMPLEX Qty: 14 2RF Rx Instructions: Take 2 tabs as needed for atrial fibrillation episode; may take another 1 tab 1 hour later call our office diphenhydramine HCl [Benadryl] 25 mg capsule 25 mg PO TID PRN (Reason: Allergy Symptoms) [id number]-wjikbwgyq-DU [Bromfed DM] 2-30-10 mg/5 mL syrup 7.5 ml PO Q6H PRN (Reason: cold symptoms) Qty: 160 0RF paroxetine HCl 20 mg tablet 40 mg PO DAILY@2100 cholecalciferol (vitamin D3) [Vitamin D3] 125 mcg (5,000 unit) Tablet 250 mcg PO DAILY@2100 magnesium 250 mg Tablet 250 mg PO DAILY@21 Januvia 100 mg tablet 100 mg PO DAILY@21 Lantus Solostar U-100 Insulin 100 unit/mL (3 mL) insulin pen 36 unit SUBCUT DAILY@09 Eliquis 5 mg tablet 5 mg PO BID Changed diltiazem HCl 120 mg capsule,extended release 24hr 180 mg PO DAILY@21 30 Days Qty: 30 0RF Discharge Orders: Discharge Order (Routine); Ordered 12/26/21 Ordered By: Clara Wakefield Referrals: Bony Jacobo FNP [Nurse Practitioner] - 1 week (PLEASE CALL [phone] ON TUESDAY TO SET UP AN APPOINTMENT WITH BONY JACOBO. ) Arti Mohan MD [Physician] - 7-10 days (PLEASE CALL [phone] ON TUESDAY TO SET UP AN APPOINTMENT WITH DR. MOHAN. ) Salo Hollingsworth MD [Primary Care Provider] - 2 weeks (PLEASE CALL [phone] ON TUESDAY TO SET UP AN APPOINTMENT WITH DR. HOLLINGSWORTH. ) Discharge Diet: Cardiac Discharge Activity: Increase activity as tolerated Patient Instructions: Diltiazem (By mouth), A-fib (Atrial Fibrillation) (DC), Opioid Safety Discharge Attestations Time Spent in Discharge Care*: less than 30 min Quality Metrics Clinical Quality Measures [ No reported AMI, CVA or VTE this stay] Coding Level of Care Code Acute Chg FW DC note Diagnoses Atrial fibrillation with rapid ventricular response I48.91
--- NOTE | 2021-12-26 16:57 | PC.NURSE ---
PT HAS HAD A GOOD UNEVENTFUL SHIFT. NO COMPLAINTS OF PAIN. PT HAS BEEN UP AMBULATING AROUND THE ROOM AND UNIT. TOLERATING THIS WELL. IV REMOVED BY NURSE FULL TIME. PT TOLERATED WELL. DISCHARGE PAPERWORK GONE OVER WITH PT. ALL QUESTIONS ANSWERED. PT TOLD TO CALL TUESDAY TO [facility] AND HER PCP TO SET UP APPOINTMENTS DUE TO US NOT BEING ABLE TO BEING THE WEEKEND. PT SAFELY WHEELED OUT BY THIS NURSE.
== END 2021-12-26 17:00 | disposition home or self-care (01) | DRG 309 ==
LOC: ER 14:49 → ICU 15:33
PROVIDERS: Admitting Provider Student in an Organized Health Care Education/Training Program; Emergency Provider Emergency Medicine; PCP Family Medicine; Visit Provider Student in an Organized Health Care Education/Training Program
DX: I48.91 Unspecified atrial fibrillation (principal); Z68.43 Body mass index [BMI] 50.0-59.9, adult; Z85.038 Personal history of other malignant neoplasm of large intestine; Z86.73 Personal history of transient ischemic attack (TIA), and cerebral infarction without residual deficits; E11.9 Type 2 diabetes mellitus without complications; E78.5 Hyperlipidemia, unspecified; I10 Essential (primary) hypertension; E66.9 Obesity, unspecified; Z79.4 Long term (current) use of insulin; Z79.01 Long term (current) use of anticoagulants
CPT/HCPCS: 36415; 36416; 71045; 80053; 82962; 83880; 84484; 85025; 93005; 94760; 96365; 96366; 96372; 96375; 99285; J1815; J3490; J7030

== ENCOUNTER → 2022-01-05 10:18 | Outpatient (BNVA) | payer MEDICAID, SELFPAY | PROVIDERS: PCP Family Medicine; Visit Provider Internal Medicine Cardiovascular Disease | DX: I48.91 Unspecified atrial fibrillation (principal); I10 Essential (primary) hypertension; E78.5 Hyperlipidemia, unspecified; Z86.73 Personal history of transient ischemic attack (TIA), and cerebral infarction without residual deficits; E11.9 Type 2 diabetes mellitus without complications; Z79.4 Long term (current) use of insulin; M65.319 Trigger thumb, unspecified thumb; M65.312 Trigger thumb, left thumb | CPT/HCPCS: 73130; 93005; 99204; 99214 ==

== ENCOUNTER 2022-01-05 23:26 | Emergency (ER) | payer MEDICAID, SELFPAY ==
[2022-01-05 23:37] VITALS: BP 126/82; PULSE 121; RESP 18; TEMP 36.7; O2SAT 97; BMI 52.4
--- NOTE | 2022-01-05 23:39 | XRR_ITS ---
PROCEDURE INFORMATION: Exam: XR Chest Exam date and time: 01/06/2022 12:07 AM Age: 66 years old Clinical indication: Pain; Chest pressure; Patient HX: C/O palpitations with tachycardia; Additional info: Cp TECHNIQUE: Imaging protocol: Radiologic exam of the chest. Views: 1 view. COMPARISON: CR XR chest 1V portable [id number] 12/25/2021 2:21 PM FINDINGS: Lungs: Unremarkable. No consolidation. Pleural spaces: Unremarkable. No pleural effusion. No pneumothorax. Heart/Mediastinum: Unremarkable. No cardiomegaly. Bones/joints: Unremarkable. XR/XR chest 1V portable [id number] IMPRESSION: No acute findings.
--- NOTE | 2022-01-05 23:40 | ECG_ITS ---
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 Measurements Intervals [place] Rate: 111 P: 220 [place]: 257 QRS: 254 QRSD: 148 T: 28 QT: 331 QTc: 451 Interpretive Statements ECTOPIC ATRIAL TACHYCARDIA WITH FIRST DEGREE AV BLOCK LEFT ATRIAL ENLARGEMENT [-0.15mV P-WAVE IN V1/V2] RIGHT AXIS DEVIATION [QRS AXIS > 100] RIGHT BUNDLE BRANCH BLOCK [120+ ms QRS DURATION, UPRIGHT V1, 40+ ms S IN I/aVL/V4/V5/V6] POSSIBLE ANTERIOR MYOCARDIAL INFARCTION , OF INDETERMINATE AGE [30 ms Q WAVE IN V3/V4, OR R < 0.2 mV IN V4] Compared to ECG 12/25/2021 21:52:59 Atrial abnormality now present Right-axis deviation now present Myocardial infarct finding now present Left anterior fascicular block no longer present Electronically Signed On 01-06-2022 0:15:58 CDT by Donald Pierce M.D. [id number] f
--- NOTE | 2022-01-05 23:41 | W.ED.ARRPALP ---
HPI - Arrhythmia/Palpitations General: Chief Complaint: Arrhythmia/Palpitations Stated Complaint: heart racing Time Seen by Provider: 01/05/22 23:30 Source: patient Mode of arrival: ambulatory Limitations: no limitations History of Present Illness: 66-year-old female has a history of A. fib with RVR patient was admitted here earlier this month and had some med adjustments she states that she had seen her PCP today and is change her flecainide to 50 twice daily states she did take 100 mg flecainide before arrival states that today her heart rates been bouncing around in the 100s having some slight chest pressure denies any dyspnea heart rate currently on the monitor is 72. Associated symptoms: Deny nausea or vomiting Review of Systems Const: Denies: fever(s), chills, body aches or change in appetite Eyes: Denies: blurry vision or eye discomfort ENMT: Denies: throat pain or dental pain Card: Reports: chest pain, palpitations and irregular heart rhythm Resp: Denies: dyspnea GI: Denies: abdominal pain, nausea, vomiting or diarrhea : Denies: dysuria Musc: Denies: neck pain or back pain Skin/Breast: Denies: rash Neuro: Denies: headache(s) Psych: Denies: depression Daquan/Lymph: Denies: easy bruising All/Imm: Denies: urticaria PFSH ED PFSH: Medical History Atrial fibrillation Colon cancer CVA (cerebral vascular accident) Diabetes mellitus Hyperlipidemia Hypertension Hypomagnesemia Morbid obesity with BMI of 50.0-59.9, adult Trigger thumb, left thumb Uncontrolled type 2 diabetes mellitus Surgical History H/O carpal tunnel repair Hx of cholecystectomy S/P colon resection Family History Other Obesity Social History Smoking and tobacco status: never smoked Alcohol intake: never Female Reproductive History: Spontaneous abortions: No Physical Exam Const: COMMON NORMALS: no acute distress, patient oriented x3 and healthy appearing HENMT: COMMON NORMALS: normocephalic and atraumatic HEAD & SCALP: normocephalic and atraumatic Eye: COMMON NORMALS: Equal, round and reactive pupils present and EOMs intact bilaterally PUPIL: Yes Equal, round and reactive pupils present Neck/C-Spine: COMMON NORMALS: full ROM and supple Chest: COMMONS NORMALS: normal inspection of the chest and normal palpation of entire chest wall Resp: COMMON NORMALS: normal respiratory effort, No retractions, No use of accessory muscles and clear to auscultation bilaterally AUSCULTATION: clear to auscultation bilaterally Cardio: COMMON NORMALS: No murmurs present (Cardio) RATE: tachycardic RHYTHM: abnormal rhythm irregularly irregular GI: COMMON NORMALS: Normal to inspection, nondistended, normoactive bowel sounds present, Soft to palpation, non-tender and no masses PALPATION: Yes Soft to palpation Extremity: COMMON NORMALS: normal to inspection and full ROM Neuro: COMMON NORMALS: patient oriented x3, moves all extremities and no focal motor deficits Psych: COMMON NORMALS: mental status grossly normal, Normal thought process present and cooperative THOUGHT PROCESS: Normal thought process present Skin: COMMON NORMALS: no rashes or lesions noted and no wounds GENERAL SKIN EXAM: no rashes or lesions noted Course Vital Signs: Vital signs: Vital Signs Temperature 98.0 F 01/05/22 23:37 Pulse Rate 75 01/05/22 23:50 Respiratory Rate 12 01/05/22 23:50 Blood Pressure 113/82 01/05/22 23:50 Pulse Oximetry 96 01/05/22 23:50 Oxygen Delivery Me thod 01/05/22 23:50 MDM - Arrhythmia/Palpitations Medical Decision Making Patient presents here with history of A. fib her heart rate here has been in the 70s most of her stay she is well-appearing blood work here is all normal she is stable for discharge she is to follow-up with her vegetable buncher return if worsening. Lab Data : 01/05/22 23:55 01/05/22 23:55 Laboratory Results WBC 7.1 10^3/uL (4.0-10.0) 01/05/22 23:55 RBC 4.48 10^6/uL (4.1-5.3) 01/05/22 23:55 Hgb 13.7 g/dL (11.5-15.3) 01/05/22 23:55 Hct 41.2 % (37.0-47.0) 01/05/22 23:55 MCV 92.0 fl (81-99) 01/05/22 23:55 MCH 30.6 pg (28.0-34.0) 01/05/22 23:55 MCHC 33.3 g/dL (30.0-36.0) 01/05/22 23:55 RDW 12.4 % (12.1-15.1) 01/05/22 23:55 Plt Count 258 10^3/cmm (130-400) 01/05/22 23:55 MPV 11.3 fL (7.4-10.4) H 01/05/22 23:55 Neut % (Auto) 55.0 % 01/05/22 23:55 Lymph % (Auto) 29.6 % 01/05/22 23:55 [place] % (Auto) 11.3 % 01/05/22 23:55 Eos % (Auto) 3.5 % 01/05/22 23:55 Baso % (Auto) 0.3 % 01/05/22 23:55 Neut # (Auto) 3.90 10^3/uL (1.8-7.7) 01/05/22 23:55 Lymph # (Auto) 2.1 10^3/uL (0.8-4.8) 01/05/22 23:55 [place] # (Auto) 0.8 10^3/uL (0.2-0.9) 01/05/22 23:55 Eos # (Auto) 0.3 10^3/uL (0.0-0.8) 01/05/22 23:55 Baso # (Auto) 0.0 10^3/uL (0.0-0.1) 01/05/22 23:55 Nucleated RBC % (auto) 0 % 01/05/22 23: Nucleated RBCs # 0.0 /100WBC 01/05/22 23:55 Sodium 135 mmol/L (136-145) L 01/05/22 23:55 Potassium 4.4 mmol/L (3.5-5.1) 01/05/22 23:55 Chloride 99 mmol/L (98-107) 01/05/22 23:55 Carbon Dioxide 26 mmol/L (22-29) 01/05/22 23:55 Anion Gap 14.4 (5-19) 01/05/22 23:55 BUN 17 mg/dL (8-23) 01/05/22 23:55 Creatinine 0.9 mg/dL (0.5-0.9) 01/05/22 23:55 GFR Calculation 63.0 mL/min (90-130) L 01/05/22 23:55 Glucose 271 mg/dL (65-115) H 01/05/22 23:55 Calculated Osmolality 291 mOsm/kg (285-295) 01/05/22 23:55 Calcium 9.1 mg/dL (8.5-10.5) 01/05/22 23:55 Total Bilirubin 0.2 mg/dL (0.15-1.2) 01/05/22 23:55 AST 11 U/L (0-32) 01/05/22 23:55 ALT 15 U/L (0-33) 01/05/22 23:55 Alkaline Phosphatase 80 U/L (35-105) 01/05/22 23:55 Troponin T Baseline 9 ng/L (0-10) 01/05/22 23:55 Total Protein 6.3 g/dL (6.6-8.7) L 01/05/22 23:55 Albumin 3.4 g/dL (3.5-5.2) L 01/05/22 23:55 Globulin 2.9 g/dL (1.3-4.6) 01/05/22 23:55 EKG Data EKG 1: I personally reviewed and interpreted this EKG as follows: EKG interpretation date: 01/05/22 EKG interpretation time: 23:33 Interpretation: afib with rvr hr [address] or t wave abnormalities qrs 148 qtc 397 Discharge Plan Discharge Patient Disposition: Home Clinical Impression: Atrial fibrillation Qualifiers: Atrial fibrillation type: unspecified Qualified Code(s): I48.91 - Unspecified atrial fibrillation Condition: Stable Prescriptions: No Action fluconazole 150 mg tablet 150 mg PO DAILY PRN (Reason: yeast infection) flecainide 50 mg tablet 50 mg PO Q12H Qty: 180 3RF diphenhydramine HCl [Benadryl] 25 mg capsule 25 mg PO TID PRN (Reason: Allergy Symptoms) [id number] [Bromfed DM] 2-30-10 mg/5 mL syrup 7.5 ml PO Q6H PRN (Reason: cold symptoms) Qty: 160 0RF paroxetine HCl 20 mg tablet 40 mg PO DAILY@2100 cholecalciferol (vitamin D3) [Vitamin D3] 125 mcg (5,000 unit) tablet 250 mcg PO BID magnesium 250 mg Tablet 250 mg PO DAILY@21 Januvia 100 mg tablet 100 mg PO DAILY@21 Lantus Solostar U-100 Insulin 100 unit/mL (3 mL) insulin pen 36 unit SUBCUT DAILY@09 Eliquis 5 mg tablet 5 mg PO BID diltiazem HCl 120 mg capsule,extended release 24hr 180 mg PO DAILY@21 30 Days Qty: 30 0RF Discharge Orders: Discharge ED (Routine); Ordered 01/06/22 Ordered By: Zach Moreno Referrals: Salo Valladares MD [Primary Care Provider] - Discharge Diet: Advance as tolerated Discharge Activity: Resume usual activity Patient Instructions: A-fib (Atrial Fibrillation) (ED) Coding Level of Care Code ED General Science Teacher for Chg Fwd Exam Comprehensive
[2022-01-05 23:50] VITALS: BP 113/82; PULSE 75; RESP 12; O2SAT 96
[2022-01-06] MEDS: dilTIAZem 5 mg/mL SDV 5 mL 15 MG IV (00:16)
[2022-01-06 00:20] LABS: Basophils % 0.3 %; Eosinophils # 0.3 10^3/uL (0.0-0.8); Eosinophils % 3.5 %; Hematocrit 41.2 % (37.0-47.0); Hemoglobin 13.7 g/dL (11.5-15.3); Lymphocytes # 2.1 10^3/uL (0.8-4.8); Lymphocytes % 29.6 %; Mean Corpuscular HGB Conc 33.3 g/dL (30.0-36.0); Mean Corpuscular Hemoglobin 30.6 pg (28.0-34.0); Mean Platelet Volume 11.3 fL (7.4-10.4); Monocytes # 0.8 10^3/uL (0.2-0.9); Monocytes % 11.3 %; Nucleated Red Blood Cells % 0 %; Platelet Count 258 10^3/cmm (130-400); Red Blood Count 4.48 10^6/uL (4.1-5.3); Red Cell Distribution Width 12.4 % (12.1-15.1); White Blood Count 7.1 10^3/uL (4.0-10.0)
[2022-01-06 00:37] LABS: Alanine Aminotransferase 15 U/L (0-33); Albumin Level 3.4 g/dL (3.5-5.2); Alkaline Phosphatase 80 U/L (35-105); Aspartate Amino Transferase 11 U/L (0-32); Blood Urea Nitrogen 17 mg/dL (8-23); Calcium 9.1 mg/dL (8.5-10.5); Carbon Dioxide 26 mmol/L (22-29); Chloride 99 mmol/L (98-107); Globulin 2.9 g/dL (1.3-4.6); Glucose 271 mg/dL (65-115); Osmolality Calculated 291 mOsm/kg (285-295); Sodium 135 mmol/L (136-145); Total Bilirubin 0.2 mg/dL (0.15-1.2); Total Protein 6.3 g/dL (6.6-8.7)
[2022-01-06 00:39] LABS: Anion Gap 14.4 (5-19); Potassium 4.4 mmol/L (3.5-5.1)
[2022-01-06 00:44] LABS: Troponin(5th) Baseline 9 ng/L (0-10)
--- NOTE | 2022-01-06 01:20 | ECG_ITS ---
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 Measurements Intervals [place] Rate: 68 P: 59 MD: 275 QRS: -79 QRSD: 145 T: 18 QT: 411 QTc: 439 Interpretive Statements SINUS RHYTHM WITH FIRST DEGREE AV BLOCK RIGHT BUNDLE BRANCH BLOCK [120+ ms QRS DURATION, UPRIGHT V1, 40+ ms S IN I/aVL/V4/V5/V6] LEFT ANTERIOR FASCICULAR BLOCK [QRS AXIS <= -45, QR IN I, RS IN II] Compared to ECG 01/05/2022 23:33:23 Left anterior fascicular block now present Atrial abnormality no longer present Right-axis deviation no longer present Myocardial infarct finding no longer present Electronically Signed On 01-06-2022 16:33:44 CDT by Guillermo Sims M.D. [id number]
[2022-01-06 01:26] VITALS: BP 100/69; PULSE 70; RESP 16; O2SAT 93
== END 2022-01-06 01:25 | disposition home or self-care (01) ==
PROVIDERS: Emergency Provider Emergency Medicine; PCP Family Medicine
DX: I48.91 Unspecified atrial fibrillation (principal); Z79.01 Long term (current) use of anticoagulants; Z79.4 Long term (current) use of insulin; Z85.038 Personal history of other malignant neoplasm of large intestine; Z86.73 Personal history of transient ischemic attack (TIA), and cerebral infarction without residual deficits; E11.9 Type 2 diabetes mellitus without complications; E78.5 Hyperlipidemia, unspecified; I10 Essential (primary) hypertension
CPT/HCPCS: 71045; 80053; 84484; 85025; 93005; 96374; 99285; J3490

== ENCOUNTER 2022-06-29 22:38 | Emergency (ER) | payer MEDICAID, SELFPAY ==
[2022-06-29 22:40] VITALS: BP 144/82; PULSE 126; RESP 20; TEMP 37; O2SAT 94; BMI 52.4
--- NOTE | 2022-06-29 22:47 | ECG_ITS ---
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 Measurements Intervals [place] Rate: 125 P: 0 NM: 0 QRS: 254 QRSD: 113 T: 11 QT: 285 QTc: 412 Interpretive Statements ATRIAL TACHYCARDIA WITH RAPID VENTRICULAR RESPONSE INCOMPLETE RIGHT BUNDLE BRANCH BLOCK POSSIBLE RIGHT VENTRICULAR HYPERTROPHY INFERIOR MYOCARDIAL INFARCTION , PROBABLY OLD ANTEROLATERAL MYOCARDIAL INFARCTION , OF INDETERMINATE AGE Compared to ECG 01/06/2022 01:20:15 Incomplete right bundle-branch block now present Atrial abnormality now present Myocardial infarct finding now present First degree AV block no longer present Right bundle-branch block no longer present Left anterior fascicular block no longer present Electronically Signed On 06-30-2022 21:00:49 BOAT CANVAS INSTALLER by Arti Dowell M.D. [id number] f
--- NOTE | 2022-06-29 22:54 | ED_ITS ---
HPI - Arrhythmia/Palpitations General: Chief Complaint: Arrhythmia/Palpitations Stated Complaint: heart racing Time Seen by Provider: 06/29/22 22:43 Source: patient Mode of arrival: ambulatory Limitations: no limitations History of Present Illness: 66-year-old female with a history of atrial fib she is on flecainide along with diltiazem at home states that over the last 2 hours she has been having palpitations she could feel that she is in A-fib she is having some mild dyspnea and discomfort she states it is typical with her A- fib when she goes in it she initially was in the 120s here her heart rate now is in the 90s in the room and she does feel improved. She denies any fevers denies any vomiting or diarrhea. Associated symptoms: Deny nausea or vomiting Review of Systems Const: Denies: fever(s), chills, body aches or change in appetite Eyes: Denies: blurry vision or eye discomfort ENMT: Denies: throat pain or dental pain Card: Reports: palpitations Resp: Denies: dyspnea GI: Denies: abdominal pain, nausea, vomiting or diarrhea : Denies: dysuria Musc: Denies: neck pain or back pain Skin/Breast: Denies: rash Neuro: Denies: headache(s) Psych: Denies: depression Daquan/Lymph: Denies: easy bruising All/Imm: Denies: urticaria PFSH ED PFSH: Medical History Atrial fibrillation Colon cancer CVA (cerebral vascular accident) Diabetes mellitus Hyperlipidemia Hypertension Hypomagnesemia Morbid obesity with BMI of 50.0-59.9, adult Trigger thumb, left thumb Uncontrolled type 2 diabetes mellitus Surgical History H/O carpal tunnel repair Hx of cholecystectomy S/P colon resection Family History Other Obesity Social History Smoking and tobacco status: never smoked Alcohol intake: never Female Reproductive History: Spontaneous abortions: No Physical Exam Const: COMMON NORMALS: no acute distress, patient oriented x3 and healthy appearing HENMT: COMMON NORMALS: normocephalic and atraumatic HEAD & SCALP: normocephalic and atraumatic Eye: COMMON NORMALS: Equal, round and reactive pupils present and EOMs intact bilaterally PUPIL: Yes Equal, round and reactive pupils present Neck/C-Spine: COMMON NORMALS: full ROM and supple Chest: COMMONS NORMALS: normal inspection of the chest and normal palpation of entire chest wall Resp: COMMON NORMALS: normal respiratory effort, No retractions, No use of accessory muscles and clear to auscultation bilaterally AUSCULTATION: clear to auscultation bilaterally Cardio: COMMON NORMALS: regular rate and No murmurs present (Cardio) RATE: regular rate RHYTHM: abnormal rhythm irregularly irregular GI: COMMON NORMALS: Normal to inspection, nondistended, normoactive bowel sounds present, Soft to palpation, non-tender and no masses PALPATION: Yes Soft to palpation Extremity: COMMON NORMALS: normal to inspection and full ROM Neuro: COMMON NORMALS: patient oriented x3, moves all extremities and no focal motor deficits Psych: COMMON NORMALS: mental status grossly normal, Normal thought process present and cooperative THOUGHT PROCESS: Normal thought process present Skin: COMMON NORMALS: no rashes or lesions noted and no wounds GENERAL SKIN EXAM: no rashes or lesions noted Course Vital Signs: Vital signs: Vital Signs Temperature 98.6 F 06/29/22 22:40 Pulse Rate 87 06/30/22 01:17 Respiratory Rate 14 06/30/22 01:17 Blood Pressure 130/75 06/30/22 01:17 Pulse Oximetry 95 06/30/22 01:17 Oxygen Delivery Me thod 06/29/22 22:40 MDM - Arrhythmia/Palpitations Medical Decision Making Patient presents here with A-fib with RVR her heart rates controlled now heart rates in the 60s she feels much improved her troponins are normal she is stable for discharge she is to follow-up with PCP and return if worsening. Lab Data 06/29/22 23:00 06/29/22 23:00 Laboratory Results WBC 7.1 10^3/uL (4.0-10.0) 06/29/22 23:00 RBC 5.42 10^6/uL (4.1-5.3) H 06/29/22 23:00 Hgb 16.3 g/dL (11.5-15.3) H 06/29/22 23:00 Hct 49.2 % (37.0-47.0) H 06/29/22 23:00 MCV 90.8 fl (81-99) 06/29/22 23:00 MCH 30.1 pg (28.0-34.0) 06/29/22 23: MCHC 33.1 g/dL (30.0-36.0) 06/29/22 23: RDW 12.2 % (12.1-15.1) 06/29/22 23: Plt Count 306 10^3/cmm (130-400) 06/29/22 23: MPV 10.9 fL (7.4-10.4) H 06/29/22 23:00 Neut % (Auto) 58.4 % 06/29/22 23: Lymph % (Auto) 29.6 % 06/29/22 23: [place] % (Auto) 9.0 % 06/29/22 23: Eos % (Auto) 2.0 % 06/29/22 23: Baso % (Auto) 0.7 % 06/29/22 23: Neut # (Auto) 4.14 10^3/uL (1.8-7.7) 06/29/22 23: Lymph # (Auto) 2.1 10^3/uL (0.8-4.8) 06/29/22 23:00 [place] # (Auto) 0.6 10^3/uL (0.2-0.9) 06/29/22 23:00 Eos # (Auto) 0.1 10^3/uL (0.0-0.8) 06/29/22 23: Baso # (Auto) 0.1 10^3/uL (0.0-0.1) 06/29/22 23:00 Nucleated RBC % (auto) 0 % 06/29/22 23: Nucleated RBCs # 0.0 /100WBC 06/29/22 23: Sodium 130 mmol/L (136-145) L 06/29/22 23: Potassium 4.5 mmol/L (3.5-5.1) 06/29/22 23: Chloride 91 mmol/L (98-107) L 06/29/22 23: Carbon Dioxide 26 mmol/L (22-29) 06/29/22 23:00 Anion Gap 17.5 (5-19) 06/29/22 23:00 BUN 23 mg/dL (8-23) 06/29/22 23:00 Creatinine 1.1 mg/dL (0.5-0.9) H 06/29/22 23:00 GFR Calculation 50.0 mL/min (90-130) L 06/29/22 23:00 Glucose 480 mg/dL (65-115) H 06/29/22 23:00 Calculated Osmolality 295 mOsm/kg (285-295) 06/29/22 23:00 Calcium 9.1 mg/dL (8.5-10.5) 06/29/22 23:00 Total Bilirubin 0.2 mg/dL (0.15-1.2) 06/29/22 23:00 AST 15 U/L (0-32) 06/29/22 23:00 ALT 24 U/L (0-33) 06/29/22 23:00 Alkaline Phosphatase 92 U/L (35-105) 06/29/22 23:00 Troponin T Baseline 11 ng/L (0-10) H 06/29/22 23:00 Troponin T 120 Minute 16.05 ng/L (0-10) H 06/30/22 01:20 Delta Troponin T 5.05 ABS# (0-10) 06/30/22 01:20 Total Protein 7.1 g/dL (6.6-8.7) 06/29/22 23:00 Albumin 3.8 g/dL (3.5-5.2) 06/29/22 23:00 Globulin 3.3 g/dL (1.3-4.6) 06/29/22 23:00 EKG Data EKG 1: I personally reviewed and interpreted this EKG as follows: EKG interpretation date: 06/29/22 EKG interpretation time: 22:43 Interpretation: atrial flutter rvr hr [address] or t wave abnormalities Discharge Plan Discharge Patient Disposition: Home Clinical Impression: Atrial fibrillation with rapid ventricular response Condition: Stable Prescriptions: No Action diphenhydramine HCl [Benadryl] 25 mg capsule 25 mg PO TID PRN (Reason: Allergy Symptoms) biotin 10,000 mcg capsule PO flecainide 100 mg tablet 100 mg PO Q12H Qty: 180 3RF paroxetine HCl 20 mg tablet 40 mg PO DAILY@2100 Qty: 90 3RF fluconazole 150 mg tablet 150 mg PO ONCE PRN (Reason: yeast infection) Qty: 1 0RF hydrochlorothiazide 12.5 mg tablet 25 mg PO DAILY Qty: 90 3RF diltiazem HCl 120 mg capsule,extended release 24hr 120 mg PO DAILY@21 Qty: 90 0RF Eliquis 5 mg tablet 5 mg PO BID Qty: 180 3RF cholecalciferol (vitamin D3) [Vitamin D3] 125 mcg (5,000 unit) tablet 250 mcg PO BID magnesium 250 mg Tablet 250 mg PO DAILY@21 Januvia 100 mg tablet 100 mg PO DAILY@21 insulin glargine [Lantus Solostar U-100 Insulin] 100 unit/mL (3 mL) insulin pen 46 unit SUBCUT DAILY@09 Discharge Orders: Discharge ED (Routine); Ordered 06/30/22 Ordered By: Zach Moreno Referrals: Salo Valladares MD [Primary Care Provider] - 1-3 days Discharge Diet: Advance as tolerated Discharge Activity: Resume usual activity Patient Instructions: A-fib (Atrial Fibrillation) (ED) Coding Level of Care Code ED Wood Web Weaving Machine Operator for Annie Crocker
[2022-06-29] MEDS: dilTIAZem 5 mg/mL SDV 5 mL 10 MG IVP (23:07)
[2022-06-29] MEDS: flecainide 100 mg Tablet 200 MG PO (23:12)
[2022-06-29 23:14] LABS: Basophils # 0.1 10^3/uL (0.0-0.1); Basophils % 0.7 %; Eosinophils # 0.1 10^3/uL (0.0-0.8); Hematocrit 49.2 % (37.0-47.0); Hemoglobin 16.3 g/dL (11.5-15.3); Lymphocytes # 2.1 10^3/uL (0.8-4.8); Lymphocytes % 29.6 %; Mean Corpuscular HGB Conc 33.1 g/dL (30.0-36.0); Mean Corpuscular Hemoglobin 30.1 pg (28.0-34.0); Mean Corpuscular Volume 90.8 fl (81-99); Mean Platelet Volume 10.9 fL (7.4-10.4); Monocytes # 0.6 10^3/uL (0.2-0.9); Neutrophils # 4.14 10^3/uL (1.8-7.7); Neutrophils % 58.4 %; Nucleated Red Blood Cells % 0 %; Platelet Count 306 10^3/cmm (130-400); Red Blood Count 5.42 10^6/uL (4.1-5.3); Red Cell Distribution Width 12.2 % (12.1-15.1); White Blood Count 7.1 10^3/uL (4.0-10.0)
[2022-06-29] MEDS: sodium chloride 0.9% 1,000 ML 999 ML IV (23:14)
[2022-06-29 23:31] LABS: Troponin(5th) Baseline 11 ng/L (0-10)
[2022-06-29 23:34] LABS: Alanine Aminotransferase 24 U/L (0-33); Albumin Level 3.8 g/dL (3.5-5.2); Alkaline Phosphatase 92 U/L (35-105); Anion Gap 17.5 (5-19); Aspartate Amino Transferase 15 U/L (0-32); Blood Urea Nitrogen 23 mg/dL (8-23); Calcium 9.1 mg/dL (8.5-10.5); Carbon Dioxide 26 mmol/L (22-29); Chloride 91 mmol/L (98-107); Globulin 3.3 g/dL (1.3-4.6); Glucose 480 mg/dL (65-115); Osmolality Calculated 295 mOsm/kg (285-295); Potassium 4.5 mmol/L (3.5-5.1); Sodium 130 mmol/L (136-145); Total Bilirubin 0.2 mg/dL (0.15-1.2); Total Protein 7.1 g/dL (6.6-8.7)
[2022-06-29 23:42] VITALS: BP 128/90; PULSE 86; RESP 22; O2SAT 94
[2022-06-29] MEDS: insulin regular-human 100 units/1 mL 10 UNIT IVP (23:47)
[2022-06-30 00:50] VITALS: BP 113/76; O2SAT 95
[2022-06-30 01:17] VITALS: BP 130/75; PULSE 87; RESP 14; O2SAT 95
[2022-06-30 01:58] LABS: Troponin 5 2HR 16.05 ng/L (0-10)
[2022-06-30 02:15] LABS: Troponin 5 2HR Delta 5.05 ABS# (0-10)
[2022-06-30 02:38] LABS: Glucose Point of Care 223 mg/dL (70-110)
== END 2022-06-30 02:37 | disposition home or self-care (01) ==
PROVIDERS: Emergency Provider Emergency Medicine; PCP Family Medicine
DX: I48.91 Unspecified atrial fibrillation (principal); Z79.01 Long term (current) use of anticoagulants
CPT/HCPCS: 36416; 80053; 82962; 84484; 85025; 93005; 96361; 96374; 96375; 99285; J1815; J3490; J7030

== ENCOUNTER 2022-07-17 19:37 | Emergency (ER) | payer MEDICAID, SELFPAY ==
[2022-07-17 19:47] VITALS: BP 127/81; PULSE 86; RESP 20; TEMP 36.6; O2SAT 97
[2022-07-17 20:12] VITALS: BP 130/114; PULSE 86; RESP 20; O2SAT 97
--- NOTE | 2022-07-17 20:12 | XRR_ITS ---
PROCEDURE INFORMATION: Exam: XR Chest Exam date and time: 07/17/2022 8:21 PM Age: 66 years old Clinical indication: Other: Afib; Additional info: SOB TECHNIQUE: Imaging protocol: Radiologic exam of the chest. Views: 1 view. COMPARISON: CR XR chest 1V portable [id number] 01/06/2022 12:07 AM FINDINGS: Lungs: Unremarkable. No consolidation. Pleural spaces: Unremarkable. No pleural effusion. No pneumothorax. Heart/Mediastinum: Unremarkable. No cardiomegaly. Bones/joints: Unremarkable. XR/XR chest 1V portable [id number] IMPRESSION: No acute findings.
--- NOTE | 2022-07-17 20:18 | ECG_ITS ---
[facility] Test Date: 2022-07-17 Pat Name: Emma Nguyen Department: Room: Gender: Female Round Boner: : 1955 Requested By: Alex Leong Order Number: [id number] Kai MD: Donald Pierce M.D. Measurements Intervals [place] Rate: 78 P: 64 [place]: 296 QRS: 267 QRSD: 140 T: 29 QT: 374 QTc: 428 Interpretive Statements SINUS RHYTHM WITH SINUS ARRHYTHMIA WITH FIRST DEGREE AV BLOCK RIGHT AXIS DEVIATION [QRS AXIS > 100] RIGHT BUNDLE BRANCH BLOCK [120+ ms QRS DURATION, UPRIGHT V1, 40+ ms S IN I/aVL/V4/V5/V6] POSSIBLE ANTERIOR MYOCARDIAL INFARCTION , OF INDETERMINATE AGE [30 ms Q WAVE IN V3/V4, OR R < 0.2 mV IN V4] Compared to ECG 06/29/2022 22:43:32 First degree AV block now present Right-axis deviation now present Right bundle-branch block now present Incomplete right bundle-branch block no longer present Myocardial infarct finding still present Electronically Signed On 07-17-2022 21:10:38 PATTERNATOR by Donald Pierce M.D. [id number]
[2022-07-17 20:25] LABS: Basophils # 0.1 10^3/uL (0.0-0.1); Basophils % 0.7 %; Eosinophils # 0.2 10^3/uL (0.0-0.8); Hematocrit 47.2 % (37.0-47.0); Hemoglobin 15.3 g/dL (11.5-15.3); Lymphocytes # 2.3 10^3/uL (0.8-4.8); Lymphocytes % 32.4 %; Mean Corpuscular HGB Conc 32.4 g/dL (30.0-36.0); Mean Corpuscular Hemoglobin 29.9 pg (28.0-34.0); Mean Corpuscular Volume 92.4 fl (81-99); Mean Platelet Volume 11.3 fL (7.4-10.4); Monocytes # 0.7 10^3/uL (0.2-0.9); Monocytes % 9.7 %; Neutrophils # 3.75 10^3/uL (1.8-7.7); Neutrophils % 54.1 %; Nucleated Red Blood Cells % 0 %; Platelet Count 265 10^3/cmm (130-400); Red Blood Count 5.11 10^6/uL (4.1-5.3); Red Cell Distribution Width 12.3 % (12.1-15.1); White Blood Count 6.9 10^3/uL (4.0-10.0)
[2022-07-17 20:50] LABS: Alanine Aminotransferase 21 U/L (0-33); Albumin Level 3.6 g/dL (3.5-5.2); Alkaline Phosphatase 83 U/L (35-105); Anion Gap 16.3 (5-19); Aspartate Amino Transferase 12 U/L (0-32); Blood Urea Nitrogen 29 mg/dL (8-23); Calcium 9.1 mg/dL (8.5-10.5); Carbon Dioxide 27 mmol/L (22-29); Chloride 98 mmol/L (98-107); Globulin 3.2 g/dL (1.3-4.6); Glucose 335 mg/dL (65-115); Magnesium 1.6 mg/dL (1.7-2.3); NT Pro B Type Natriuretic Pept 346 pg/mL (0-125); Osmolality Calculated 303 mOsm/kg (285-295); Potassium 4.3 mmol/L (3.5-5.1); Sodium 137 mmol/L (136-145); Total Bilirubin 0.2 mg/dL (0.15-1.2); Total Protein 6.8 g/dL (6.6-8.7)
--- NOTE | 2022-07-17 20:59 | ED_ITS ---
HPI - Arrhythmia/Palpitations General: Chief Complaint: Arrhythmia/Palpitations Stated Complaint: irregular heart rate Time Seen by Provider: 07/17/22 19:57 Source: patient History of Present Illness: 66-year-old female who slept through her morning dose of medication this morning. She did not take her flecainide. She began to get short of breath later in the day, and noticed that her heart rate was fast. She has a monitor at home, and checked her heart rate. It was 140-170. She complained of some chest pressure as well. She took her nighttime medication, and rate is now improved. She is mildly short of breath, but much improved as well. mild chest pressure that is now resolved. complaint: rapid heart beat and heart racing Onset (ago): hour(s) Duration: constant and now resolved Severity: moderate Context: occurred during rest Arrhythmia history: atrial fibrillation Associated symptoms: Reports short of breath and other; Deny cough, diaphoresis, muscle cramps, nausea, paresthesias or syncope Treatments prior to arrival: other Review of Systems Const: Denies: fever(s) or diaphoresis ENMT: Denies: throat pain Card: Reports: palpitations and irregular heart rhythm; Denies: chest pain, swelling of feet/ankles or syncope Resp: Reports: dyspnea; Denies: productive cough or non-productive cough GI: Denies: abdominal pain or nausea Musc: Denies: muscle cramps PFSH ED PFSH: Medical History Atrial fibrillation Colon cancer CVA (cerebral vascular accident) Diabetes mellitus Hyperlipidemia Hypertension Hypomagnesemia Morbid obesity with BMI of 50.0-59.9, adult Trigger thumb, left thumb Uncontrolled type 2 diabetes mellitus Surgical History H/O carpal tunnel repair Hx of cholecystectomy S/P colon resection Family History Other Obesity Social History Smoking and tobacco status: never smoked Alcohol intake: never Female Reproductive History: Spontaneous abortions: No Physical Exam Const: COMMON NORMALS: no acute distress GENERAL APPEARANCE: cooperative; not ill appearing and not frail appearing HENMT: COMMON NORMALS: normocephalic, atraumatic and Normal external nose present HEAD & SCALP: normocephalic and atraumatic FACE & SINUS: normal facial exam and face symmetric NOSE: Normal external nose present Eye: COMMON NORMALS: Equal, round and reactive pupils present and EOMs intact bilaterally PUPIL: Yes Equal, round and reactive pupils present Neck/C-Spine: GENERAL: Yes trachea midline Chest: CHEST: Yes Symmetrical chest wall rise Resp: COMMON NORMALS: normal respiratory effort, No retractions, No use of accessory muscles and clear to auscultation bilaterally AUSCULTATION: clear to auscultation bilaterally Cardio: COMMON NORMALS: regular rate and regular rhythm RATE: regular rate RHYTHM: regular rhythm GI: COMMON NORMALS: Normal to inspection, nondistended, normoactive bowel sounds present Extremity: COMMON NORMALS: no pedal edema Neuro: KERRY COMA SCALE: document GCS findings [place] coma scale eye opening: Spontaneous [place] coma scale verbal response: Orientated [place] coma scale motor response: Obey commands Kerry coma scale total score: 15 SENSORY EXAM: Yes extremities (intact) Psych: COMMON NORMALS: speech normal SPEECH: Yes normal speech Skin: COMMON NORMALS: no rashes or lesions noted GENERAL SKIN EXAM: no rashes or lesions noted Course Vital Signs: Vital signs: Vital Signs Temperature 97.9 F 07/17/22 19:47 Pulse Rate 86 07/17/22 20:12 Respiratory Rate 20 H 07/17/22 20:12 Blood Pressure 130/114 07/17/22 20:12 Pulse Oximetry 97 07/17/22 20:12 Oxygen Delivery Me thod 07/17/22 20:12 MDM - Arrhythmia/Palpitations Medical Decision Making Patient's A-fib with RVR is resolved. Currently her heart rate is 80. She is in sinus rhythm. Blood pressure is 110/70. CBC is not remarkable. Blood sugar is 335. BUN is 29, CBC is not remarkable. Magnesium is 1.6 however. She will be infused with 1 g of magnesium sulfate. Chest x-ray is not remarkable. Rhythm is stable. Magnesium is infused. She will be allowed discharge per Lab Data 07/17/22 20:05 07/17/22 20:05 Radiology Impressions Chest X-Ray 07/17/22 20:12 IMPRESSION: No acute findings. Laboratory Results WBC 6.9 10^3/uL (4.0-10.0) 07/17/22 20:05 RBC 5.11 10^6/uL (4.1-5.3) 07/17/22 20:05 Hgb 15.3 g/dL (11.5-15.3) 07/17/22 20:05 Hct 47.2 % (37.0-47.0) H 07/17/22 20:05 MCV 92.4 fl (81-99) 07/17/22 20:05 MCH 29.9 pg (28.0-34.0) 07/17/22 20:05 MCHC 32.4 g/dL (30.0-36.0) 07/17/22 20:05 RDW 12.3 % (12.1-15.1) 07/17/22 20:05 Plt Count 265 10^3/cmm (130-400) 07/17/22 20:05 MPV 11.3 fL (7.4-10.4) H 07/17/22 20:05 Neut % (Auto) 54.1 % 07/17/22 20:05 Lymph % (Auto) 32.4 % 07/17/22 20:05 Lane % (Auto) 9.7 % 07/17/22 20:05 Eos % (Auto) 3.0 % 07/17/22 20:05 Baso % (Auto) 0.7 % 07/17/22 20:05 Neut # (Auto) 3.75 10^3/uL (1.8-7.7) 07/17/22 20:05 Lymph # (Auto) 2.3 10^3/uL (0.8-4.8) 07/17/22 20:05 Lane # (Auto) 0.7 10^3/uL (0.2-0.9) 07/17/22 20:05 Eos # (Auto) 0.2 10^3/uL (0.0-0.8) 07/17/22 20:05 Baso # (Auto) 0.1 10^3/uL (0.0-0.1) 07/17/22 20:05 Nucleated RBC % (auto) 0 % 07/17/22 20:05 Nucleated RBCs # 0.0 /100WBC 07/17/22 20:05 Sodium 137 mmol/L (136-145) 07/17/22 20:05 Potassium 4.3 mmol/L (3.5-5.1) 07/17/22 20:05 Chloride 98 mmol/L (98-107) 07/17/22 20:05 Carbon Dioxide 27 mmol/L (22-29) 07/17/22 20:05 Anion Gap 16.3 (5-19) 07/17/22 20:05 BUN 29 mg/dL (8-23) H 07/17/22 20:05 Creatinine 0.9 mg/dL (0.5-0.9) 07/17/22 20:05 GFR Calculation 63.0 mL/min (90-130) L 07/17/22 20:05 Glucose 335 mg/dL (65-115) H 07/17/22 20:05 Calculated Osmolality 303 mOsm/kg (285-295) H 07/17/22 20:05 Calcium 9.1 mg/dL (8.5-10.5) 07/17/22 20:05 Magnesium 1.6 mg/dL (1.7-2.3) L 07/17/22 20:05 Total Bilirubin 0.2 mg/dL (0.15-1.2) 07/17/22 20:05 AST 12 U/L (0-32) 07/17/22 20:05 ALT 21 U/L (0-33) 07/17/22 20:05 Alkaline Phosphatase 83 U/L (35-105) 07/17/22 20:05 NT-Pro-B Natriuret Pep 346 pg/mL (0-125) H 07/17/22 20:05 Total Protein 6.8 g/dL (6.6-8.7) 07/17/22 20:05 Albumin 3.6 g/dL (3.5-5.2) 07/17/22 20:05 Globulin 3.2 g/dL (1.3-4.6) 07/17/22 20:05 Discharge Plan Discharge Patient Disposition: Home Clinical Impression: Atrial fibrillation with rapid ventricular response, Hypomagnesemia Condition: Stable Prescriptions: No Action diphenhydramine HCl [Benadryl] 25 mg capsule 25 mg PO TID PRN (Reason: Allergy Symptoms) biotin 10,000 mcg capsule PO flecainide 100 mg tablet 100 mg PO Q12H Qty: 180 3RF paroxetine HCl 20 mg tablet 40 mg PO DAILY@2100 Qty: 90 3RF fluconazole 150 mg tablet 150 mg PO ONCE PRN (Reason: yeast infection) Qty: 1 0RF hydrochlorothiazide 12.5 mg tablet 25 mg PO DAILY Qty: 90 3RF diltiazem HCl 120 mg capsule,extended release 24hr 120 mg PO DAILY@21 Qty: 90 0RF Eliquis 5 mg tablet 5 mg PO BID Qty: 180 3RF insulin glargine [Lantus Solostar U-100 Insulin] 100 unit/mL (3 mL) insulin pen 46 unit SUBCUT DAILY 60 Days Qty: 28 1RF cholecalciferol (vitamin D3) [Vitamin D3] 125 mcg (5,000 unit) tablet 250 mcg PO BID magnesium 250 mg Tablet 250 mg PO DAILY@21 Januvia 100 mg tablet 100 mg PO DAILY@21 Discharge Orders: Discharge ED (Routine); Ordered 07/17/22 Ordered By: Alex Grace Referrals: Salo Valladares MD [Primary Care Provider] - 1-3 days Patient Instructions: A-fib (Atrial Fibrillation) (ED) Activity Restrictions/Additional Instructions: Return for worsening shortness of breath, palpitations or fast heart rate, any other concerning symptoms. Coding Level of Care Code ED Global Position System Technician for Annie Crocker
[2022-07-17 22:30] VITALS: BP 106/66; PULSE 86; RESP 16; O2SAT 99
[2022-07-17 22:59] VITALS: BP 106/66; PULSE 86; RESP 16; O2SAT 99
== END 2022-07-17 22:34 | disposition home or self-care (01) ==
PROVIDERS: Emergency Provider Emergency Medicine; PCP Family Medicine
DX: I48.20 Chronic atrial fibrillation, unspecified (principal); E83.42 Hypomagnesemia; I10 Essential (primary) hypertension; Z79.01 Long term (current) use of anticoagulants
CPT/HCPCS: 71045; 80053; 83735; 83880; 85025; 93005; 96374; 99285; J3475

== ENCOUNTER 2022-07-19 23:34 | Emergency (ER) | payer MEDICAID, SELFPAY ==
[2022-07-19 23:43] VITALS: BP 142/87; PULSE 92; RESP 16; TEMP 37.1; O2SAT 97; BMI 52.4
[2022-07-19 23:50] VITALS: BP 109/79; PULSE 98; RESP 13; O2SAT 97
--- NOTE | 2022-07-19 23:55 | XRR_ITS ---
PROCEDURE INFORMATION: Exam: XR Chest Exam date and time: 07/19/2022 11:58 PM Age: 66 years old Clinical indication: Prior surgery; Surgery type: Gb; Patient HX: C/O palpitations. History of afib. ; Additional info: Palpiations TECHNIQUE: Imaging protocol: Radiologic exam of the chest. Views: 1 view. COMPARISON: CR (CHEST, ) 07/17/2022 8:21 PM FINDINGS: Lungs: Suspected low lung volumes and bronchovascular crowding could be related to portable technique. Mild bibasilar opacities may represent atelectasis. Mild gas is distention of the stomach and underneath the left hemidiaphragm which is slightly elevated. No consolidation. Pleural spaces: Unremarkable. No pleural effusion. No pneumothorax. Heart/Mediastinum: Unremarkable. No cardiomegaly. Bones/joints: Unremarkable. XR/XR chest 1V portable [id number] IMPRESSION: No acute radiographic findings in the chest.
--- NOTE | 2022-07-19 23:55 | W.ED.ARRPALP ---
HPI - Arrhythmia/Palpitations General: Chief Complaint: Arrhythmia/Palpitations Stated Complaint: cardiac dysrhythmia Time Seen by Provider: 07/19/22 23:36 Source: patient and EMS Mode of arrival: EMS Limitations: no limitations History of Present Illness: 66-year-old female who has a history of A-fib she is on diltiazem along with apixaban and flecainide she states that her heart rate was bouncing today up to the 140s and then down to the 90s she felt like her heart was racing as well does have a history anxiety she denies any chest pain denies any shortness of breath with EMS her heart rate was in the low 90s she denies any fever denies any worsening improving factors. Associated symptoms: Deny nausea or vomiting Review of Systems Const: Denies: fever(s), chills, body aches or change in appetite Eyes: Denies: blurry vision or eye discomfort ENMT: Denies: throat pain or dental pain Card: Reports: palpitations Resp: Denies: dyspnea GI: Denies: abdominal pain, nausea, vomiting or diarrhea : Denies: dysuria Musc: Denies: neck pain or back pain Skin/Breast: Denies: rash Neuro: Denies: headache(s) Psych: Denies: depression Daquan/Lymph: Denies: easy bruising All/Imm: Denies: urticaria PFSH ED PFSH: Medical History Atrial fibrillation Colon cancer CVA (cerebral vascular accident) Diabetes mellitus Hyperlipidemia Hypertension Hypomagnesemia Morbid obesity with BMI of 50.0-59.9, adult Trigger thumb, left thumb Uncontrolled type 2 diabetes mellitus Surgical History H/O carpal tunnel repair Hx of cholecystectomy S/P colon resection Family History Other Obesity Social History Smoking and tobacco status: never smoked Alcohol intake: never Female Reproductive History: Spontaneous abortions: No Physical Exam Const: COMMON NORMALS: no acute distress, patient oriented x3 and healthy appearing HENMT: COMMON NORMALS: normocephalic and atraumatic HEAD & SCALP: normocephalic and atraumatic Eye: COMMON NORMALS: Equal, round and reactive pupils present and EOMs intact bilaterally PUPIL: Yes Equal, round and reactive pupils present Neck/C-Spine: COMMON NORMALS: full ROM and supple Chest: COMMONS NORMALS: normal inspection of the chest and normal palpation of entire chest wall Resp: COMMON NORMALS: normal respiratory effort, No retractions, No use of accessory muscles and clear to auscultation bilaterally AUSCULTATION: clear to auscultation bilaterally Cardio: COMMON NORMALS: regular rate, regular rhythm and No murmurs present (Cardio) RATE: regular rate RHYTHM: regular rhythm GI: COMMON NORMALS: Normal to inspection, nondistended, normoactive bowel sounds present, Soft to palpation, non-tender and no masses PALPATION: Yes Soft to palpation Extremity: COMMON NORMALS: normal to inspection and full ROM Neuro: COMMON NORMALS: patient oriented x3, moves all extremities and no focal motor deficits Psych: COMMON NORMALS: mental status grossly normal, Normal thought process present and cooperative THOUGHT PROCESS: Normal thought process present Skin: COMMON NORMALS: no rashes or lesions noted and no wounds GENERAL SKIN EXAM: no rashes or lesions noted Course Vital Signs: Vital signs: Vital Signs Temperature 98.8 F 07/19/22 23:43 Pulse Rate 92 07/19/22 23:43 Respiratory Rate 16 07/19/22 23:43 Blood Pressure 142/87 07/19/22 23:43 Pulse Oximetry 97 07/19/22 23:43 Oxygen Delivery Me thod 07/19/22 23:43 MDM - Arrhythmia/Palpitations Medical Decision Making Patient presents with palpitations along with history of A-fib blood work here is normal her heart rates been normal while she has been here its currently 78 she has had no tachycardia she is stable for discharge she is to follow-up with PCP and return if worsening. Lab Data 07/20/22 00:10 07/20/22 00:10 Radiology Impressions Chest X-Ray 07/19/22 23:55 IMPRESSION: No acute radiographic findings in the chest. Laboratory Results WBC 6.3 10^3/uL (4.0-10.0) 07/20/22 00:10 RBC 5.17 10^6/uL (4.1-5.3) 07/20/22 00:10 Hgb 15.5 g/dL (11.5-15.3) H 07/20/22 00:10 Hct 48.2 % (37.0-47.0) H 07/20/22 00:10 MCV 93.2 fl (81-99) 07/20/22 00:10 MCH 30.0 pg (28.0-34.0) 07/20/22 00:10 MCHC 32.2 g/dL (30.0-36.0) 07/20/22 00:10 RDW 12.1 % (12.1-15.1) 07/20/22 00:10 Plt Count 252 10^3/cmm (130-400) 07/20/22 00:10 MPV 10.8 fL (7.4-10.4) H 07/20/22 00:10 Neut % (Auto) 55.9 % 07/20/22 00:10 Lymph % (Auto) 30.5 % 07/20/22 00:10 [place] % (Auto) 10.0 % 07/20/22 00:10 Eos % (Auto) 2.5 % 07/20/22 00:10 Baso % (Auto) 0.6 % 07/20/22 00:10 Neut # (Auto) 3.52 10^3/uL (1.8-7.7) 07/20/22 00:10 Lymph # (Auto) 1.9 10^3/uL (0.8-4.8) 07/20/22 00:10 [place] # (Auto) 0.6 10^3/uL (0.2-0.9) 07/20/22 00:10 Eos # (Auto) 0.2 10^3/uL (0.0-0.8) 07/20/22 00:10 Baso # (Auto) 0.0 10^3/uL (0.0-0.1) 07/20/22 00:10 Nucleated RBC % (auto) 0 % 07/20/22 00:10 Nucleated RBCs # 0.0 /100WBC 07/20/22 00:10 Sodium 135 mmol/L (136-145) L 07/20/22 00:10 Potassium 4.3 mmol/L (3.5-5.1) 07/20/22 00:10 Chloride 96 mmol/L (98-107) L 07/20/22 00:10 Carbon Dioxide 31 mmol/L (22-29) H 07/20/22 00:10 Anion Gap 12.3 (5-19) 07/20/22 00:10 BUN 30 mg/dL (8-23) H 07/20/22 00:10 Creatinine 0.9 mg/dL (0.5-0.9) 07/20/22 00:10 GFR Calculation 63.0 mL/min (90-130) L 07/20/22 00:10 Glucose 376 mg/dL (65-115) H 07/20/22 00:10 Calculated Osmolality 302 mOsm/kg (285-295) H 07/20/22 00:10 Calcium 9.2 mg/dL (8.5-10.5) 07/20/22 00:10 Total Bilirubin 0.2 mg/dL (0.15-1.2) 07/20/22 00:10 AST 15 U/L (0-32) 07/20/22 00:10 ALT 20 U/L (0-33) 07/20/22 00:10 Alkaline Phosphatase 78 U/L (35-105) 07/20/22 00:10 Total Protein 7.1 g/dL (6.6-8.7) 07/20/22 00:10 Albumin 3.8 g/dL (3.5-5.2) 07/20/22 00:10 Globulin 3.3 g/dL (1.3-4.6) 07/20/22 00:10 EKG Data EKG 1: I personally reviewed and interpreted this EKG as follows: EKG interpretation date: 07/19/22 EKG interpretation time: 23:57 Interpretation: hr [address] or t wave abnormalities qrs 150 qtc 416 Other EKG comments: Chest X-Ray 07/19/22 23:55 IMPRESSION: No acute radiographic findings in the chest. Discharge Plan Discharge Patient Disposition: Home Clinical Impression: Palpitations Condition: Stable Prescriptions: No Action diphenhydramine HCl [Benadryl] 25 mg capsule 25 mg PO TID PRN (Reason: Allergy Symptoms) biotin 10,000 mcg capsule PO flecainide 100 mg tablet 100 mg PO Q12H Qty: 180 3RF paroxetine HCl 20 mg tablet 40 mg PO DAILY@2100 Qty: 90 3RF fluconazole 150 mg tablet 150 mg PO ONCE PRN (Reason: yeast infection) Qty: 1 0RF hydrochlorothiazide 12.5 mg tablet 25 mg PO DAILY Qty: 90 3RF diltiazem HCl 120 mg capsule,extended release 24hr 120 mg PO DAILY@21 Qty: 90 0RF Eliquis 5 mg tablet 5 mg PO BID Qty: 180 3RF insulin glargine [Lantus Solostar U-100 Insulin] 100 unit/mL (3 mL) insulin pen 46 unit SUBCUT DAILY 60 Days Qty: 28 1RF cholecalciferol (vitamin D3) [Vitamin D3] 125 mcg (5,000 unit) tablet 250 mcg PO BID magnesium 250 mg Tablet 250 mg PO DAILY@21 Januvia 100 mg tablet 100 mg PO DAILY@21 Discharge Orders: Discharge ED (Routine); Ordered 07/20/22 Ordered By: Zach Moreno Referrals: Salo Valladares MD [Primary Care Provider] - 1-3 days Discharge Diet: Advance as tolerated Discharge Activity: Resume usual activity Patient Instructions: Heart Palpitations (ED) Coding Level of Care Code ED Fireworks Display Specialist for Annie Crocker
--- NOTE | 2022-07-19 23:57 | ECG_ITS ---
[facility] Test Date: 2022-07-19 Pat Name: Emma Nguyen Department: Room: Gender: Female Lock Setter: : 1955 Requested By: Zach Moreno Order Number: [id number] Kai MD: Guillermo Sims M.D. Measurements Intervals [place] Rate: 86 P: -71 GA: 305 QRS: 251 QRSD: 150 T: 18 QT: 372 QTc: 447 Interpretive Statements ECTOPIC ATRIAL RHYTHM WITH FIRST DEGREE AV BLOCK RIGHT AXIS DEVIATION [QRS AXIS > 100] RIGHT BUNDLE BRANCH BLOCK [120+ ms QRS DURATION, UPRIGHT V1, 40+ ms S IN I/aVL/V4/V5/V6] Compared to ECG 07/17/2022 20:18:53 Ectopic atrial rhythm now present Sinus rhythm no longer present Sinus arrhythmia no longer present Myocardial infarct finding no longer present Electronically Signed On 07-20-2022 18:16:12 LINING MAKER HAND by Guillermo Sims M.D. [id number]
[2022-07-20 00:16] LABS: Basophils % 0.6 %; Eosinophils # 0.2 10^3/uL (0.0-0.8); Eosinophils % 2.5 %; Hematocrit 48.2 % (37.0-47.0); Hemoglobin 15.5 g/dL (11.5-15.3); Lymphocytes # 1.9 10^3/uL (0.8-4.8); Lymphocytes % 30.5 %; Mean Corpuscular HGB Conc 32.2 g/dL (30.0-36.0); Mean Corpuscular Volume 93.2 fl (81-99); Mean Platelet Volume 10.8 fL (7.4-10.4); Monocytes # 0.6 10^3/uL (0.2-0.9); Neutrophils # 3.52 10^3/uL (1.8-7.7); Neutrophils % 55.9 %; Nucleated Red Blood Cells % 0 %; Platelet Count 252 10^3/cmm (130-400); Red Blood Count 5.17 10^6/uL (4.1-5.3); Red Cell Distribution Width 12.1 % (12.1-15.1); White Blood Count 6.3 10^3/uL (4.0-10.0)
[2022-07-20 00:45] LABS: Alanine Aminotransferase 20 U/L (0-33); Albumin Level 3.8 g/dL (3.5-5.2); Alkaline Phosphatase 78 U/L (35-105); Anion Gap 12.3 (5-19); Aspartate Amino Transferase 15 U/L (0-32); Blood Urea Nitrogen 30 mg/dL (8-23); Calcium 9.2 mg/dL (8.5-10.5); Carbon Dioxide 31 mmol/L (22-29); Chloride 96 mmol/L (98-107); Globulin 3.3 g/dL (1.3-4.6); Glucose 376 mg/dL (65-115); Osmolality Calculated 302 mOsm/kg (285-295); Potassium 4.3 mmol/L (3.5-5.1); Sodium 135 mmol/L (136-145); Total Bilirubin 0.2 mg/dL (0.15-1.2); Total Protein 7.1 g/dL (6.6-8.7)
[2022-07-20 01:50] VITALS: BP 126/73; PULSE 78; RESP 18; O2SAT 95
[2022-07-20 01:58] VITALS: BP 126/73; PULSE 76; RESP 18; O2SAT 97
== END 2022-07-20 01:36 | disposition home or self-care (01) ==
PROVIDERS: Emergency Provider Emergency Medicine; PCP Family Medicine
DX: R00.2 Palpitations (principal); Z79.01 Long term (current) use of anticoagulants; Z79.4 Long term (current) use of insulin; Z85.038 Personal history of other malignant neoplasm of large intestine; Z86.73 Personal history of transient ischemic attack (TIA), and cerebral infarction without residual deficits; E11.9 Type 2 diabetes mellitus without complications; E78.5 Hyperlipidemia, unspecified; I10 Essential (primary) hypertension
CPT/HCPCS: 71045; 80053; 85025; 93005; 99285

== ENCOUNTER 2022-08-08 21:29 | Emergency (ER) | payer MEDICAID, SELFPAY ==
[2022-08-08 21:30] VITALS: BP 154/109; PULSE 95; RESP 13; TEMP 36.9; O2SAT 97; BMI 52.4
[2022-08-08 22:05] VITALS: BP 121/85; PULSE 84; RESP 22; O2SAT 92
--- NOTE | 2022-08-08 22:36 | ECG_ITS ---
[facility] Test Date: 2022-08-08 Pat Name: Emma Nguyen Department: Room: Gender: Female Pipe Fitter: : 1955 Requested By: Alex Leong Order Number: [id number] Kai MD: Donald Pierce M.D. Measurements Intervals Raphine Rate: 87 P: 0 OH: 0 QRS: 263 QRSD: 154 T: 59 QT: 386 QTc: 465 Interpretive Statements ATRIAL FIBRILLATION RIGHT AXIS DEVIATION [QRS AXIS > 100] RIGHT BUNDLE BRANCH BLOCK [120+ ms QRS DURATION, UPRIGHT V1, 40+ ms S IN I/aVL/V4/V5/V6] Compared to ECG 07/19/2022 23:57:51 Ectopic atrial rhythm no longer present First degree AV block no longer present Electronically Signed On 08-09-2022 11:30:32 CDT by Donald Pierce M.D. [id number]
--- NOTE | 2022-08-08 22:36 | XRR_ITS ---
PROCEDURE INFORMATION: Exam: XR Chest Exam date and time: 08/08/2022 10:41 PM Age: 66 years old Clinical indication: Pain; Chest pressure; Additional info: Cp TECHNIQUE: Imaging protocol: Radiologic exam of the chest. Views: 1 view. COMPARISON: CR (CHEST, ) 07/19/2022 11:58 PM FINDINGS: Lungs: Redemonstration of mild bibasilar opacities which may represent atelectasis. Decreased gaseous distention of the stomach compared to the prior. No consolidation. Pleural spaces: Unremarkable. No pleural effusion. No pneumothorax. Heart/Mediastinum: The cardiomediastinal silhouette is stable in appearance. The thoracic aorta is mildly tortuous. Bones/joints: Unremarkable. XR/XR chest 1V portable [id number] IMPRESSION: No acute radiographic findings in the chest.
[2022-08-08 22:42] LABS: Basophils # 0.1 10^3/uL (0.0-0.1); Basophils % 0.4 %; Eosinophils # 0.2 10^3/uL (0.0-0.8); Eosinophils % 2.1 %; Hematocrit 47.2 % (37.0-47.0); Hemoglobin 15.8 g/dL (11.5-15.3); Lymphocytes # 2.6 10^3/uL (0.8-4.8); Lymphocytes % 23.2 %; Mean Corpuscular HGB Conc 33.5 g/dL (30.0-36.0); Mean Corpuscular Hemoglobin 30.4 pg (28.0-34.0); Mean Corpuscular Volume 90.9 fl (81-99); Mean Platelet Volume 11.2 fL (7.4-10.4); Neutrophils # 7.25 10^3/uL (1.8-7.7); Neutrophils % 64.9 %; Nucleated Red Blood Cells % 0 %; Platelet Count 297 10^3/cmm (130-400); Red Blood Count 5.19 10^6/uL (4.1-5.3); Red Cell Distribution Width 12.1 % (12.1-15.1); White Blood Count 11.2 10^3/uL (4.0-10.0)
[2022-08-08 23:00] LABS: Troponin(5th) Baseline 6 ng/L (0-10)
[2022-08-08 23:15] LABS: 25 Hydroxy Vitamin D 38 ng/mL (30-100); Alanine Aminotransferase 23 U/L (0-33); Albumin Level 3.7 g/dL (3.5-5.2); Alkaline Phosphatase 96 U/L (35-105); Blood Urea Nitrogen 21 mg/dL (8-23); Calcium 8.6 mg/dL (8.5-10.5); Carbon Dioxide 25 mmol/L (22-29); Chloride 95 mmol/L (98-107); Creatine Phosphokinase 30 U/L (26-192); Globulin 3.2 g/dL (1.3-4.6); Glomerular Filtration Rate 45.2 mL/min (90-130); Glucose 406 mg/dL (65-115); Magnesium 1.4 mg/dL (1.7-2.3); NT Pro B Type Natriuretic Pept 171 pg/mL (0-125); Osmolality Calculated 300 mOsm/kg (285-295); Sodium 135 mmol/L (136-145); Thyroid Stimulating Hormone 1.41 uIU/mL (0.27-4.20); Total Bilirubin 0.2 mg/dL (0.15-1.2); Total Protein 6.9 g/dL (6.6-8.7)
[2022-08-08 23:23] LABS: Anion Gap 19.5 (5-19)
[2022-08-08 23:24] LABS: Aspartate Amino Transferase 15 U/L (0-32); Potassium 4.5 mmol/L (3.5-5.1)
[2022-08-08] MEDS: insulin regular-human 100 units/1 mL 12 UNIT IVP (23:41)
[2022-08-09 01:50] LABS: Troponin 5 2HR 8.49 ng/L (0-10)
[2022-08-09 01:59] LABS: Troponin 5 2HR Delta 2.49 ABS# (0-10)
[2022-08-09 02:01] LABS: Glucose Point of Care 233 mg/dL (70-110)
--- NOTE | 2022-08-09 11:00 | DCPLANNER ---
Addendum entered by Belkis Patton 08/13/22 08:44: Patient had a follow up appointment scheduled with heart care - patient did attend appointment Addendum entered by Belkis Patton 08/11/22 09:14: Patient has a follow up appointment scheduled for , August 12, 2022 at 10:30 with [facility]. Clinic will call patient with appointment information Original Note: business banking manager had message to schedule a follow up appointment for patient with cardiology. business banking manager sent patients information to the front office staff at [facility]. Patients information will be reviewed. Clinic will call patient with appointment information.
--- NOTE | 2022-08-10 10:14 | ED_ITS ---
HPI - Chest Pain General: Chief Complaint: Chest Pain Stated Complaint: afib, hyperglycemia Time Seen by Provider: 08/08/22 21:47 Source: patient History of Present Illness: 66 year old female with the history of atrial fibrillation. She presents with palpitations, chest discomfort radiating to her back, and some mild shortness of breath. Her symptoms are essentially resolved at this point. She has a heart rate monitor at home, and it was reading high, in the 180s. Because of this, she decided to come in for evaluation. This is the third or fourth time she's been seen for similar complaints. She has yet to follow up with cardiology MD complaint: chest pain Pertinent past history: other Onset (ago): hour(s) Timing of current episode: now resolved Prior episodes: Yes Onset: during rest Pain location: substernal Pain radiation: back Severity: moderate Quality: aching Relieving factors: nothing Exacerbating factors: nothing Associated symptoms: Reports dyspnea and palpitations; Deny abdominal pain, fever(s), nausea or vomiting Review of Systems Const: Denies: fever(s), chills or body aches Eyes: Denies: change in vision Card: Reports: chest pain and palpitations Resp: Reports: dyspnea; Denies: productive cough, non-productive cough or wheezing GI: Denies: abdominal pain, nausea, vomiting, diarrhea or hematochezia : Denies: difficulty voiding Skin/Breast: Denies: rash Neuro: Denies: headache(s), weakness in extremities, dizziness or confusion PFSH ED PFSH: Medical History Atrial fibrillation Colon cancer CVA (cerebral vascular accident) Diabetes mellitus Hyperlipidemia Hypertension Hypomagnesemia Morbid obesity with BMI of 50.0-59.9, adult Trigger thumb, left thumb Uncontrolled type 2 diabetes mellitus Surgical History H/O carpal tunnel repair Hx of cholecystectomy S/P colon resection Family History Other Obesity Social History Smoking and tobacco status: never smoked Alcohol intake: never Female Reproductive History: Spontaneous abortions: No Physical Exam Const: COMMON NORMALS: no acute distress GENERAL APPEARANCE: cooperative; not ill appearing and not frail appearing HENMT: COMMON NORMALS: normocephalic, atraumatic and Normal external nose present HEAD & SCALP: normocephalic and atraumatic FACE & SINUS: normal facial exam and face symmetric NOSE: Normal external nose present Eye: COMMON NORMALS: Equal, round and reactive pupils present and EOMs intact bilaterally PUPIL: Yes Equal, round and reactive pupils present Neck/C-Spine: GENERAL: Yes trachea midline Chest: CHEST: Yes Symmetrical chest wall rise Resp: COMMON NORMALS: normal respiratory effort, No retractions, No use of accessory muscles and clear to auscultation bilaterally AUSCULTATION: clear to auscultation bilaterally Cardio: COMMON NORMALS: regular rate and regular rhythm RATE: regular rate RHYTHM: regular rhythm GI: COMMON NORMALS: Normal to inspection, nondistended, normoactive bowel sounds present Extremity: COMMON NORMALS: no pedal edema Neuro: KERRY COMA SCALE: document GCS findings [place] coma scale eye opening: Spontaneous [place] coma scale verbal response: Orientated [place] coma scale motor response: Obey commands [place] coma scale total score: 15 SENSORY EXAM: Yes extremities (intact) Psych: COMMON NORMALS: speech normal SPEECH: Yes normal speech Skin: COMMON NORMALS: no rashes or lesions noted GENERAL SKIN EXAM: no rashes or lesions noted Course Vital Signs: Vital signs: Vital Signs Temperature 98.4 F 08/08/22 21:30 Pulse Rate 84 08/08/22 22:05 Respiratory Rate 22 H 08/08/22 22:05 Blood Pressure 121/85 08/08/22 22:05 Pulse Oximetry 92 08/08/22 22:05 MDM - Chest Pain Medical Decision Making The patient's heart rate is in the 80s. I checked her monitor, and because of her right bundle branch block, it was counting each beat twice, giving the indication of a heart rate of 180, when in reality her rate was around 90. her chest discomfort is resolved at this point. Her delta troponin is 2.5. Her other laboratory is not remarkable. her chest X-ray is negative. she is encouraged to follow up with cardiology. she will be allowed to discharge. she knows to return for worsening symptoms. Because of her frequent symptoms, her diltiazem dosage will be doubled. Lab Data 08/08/22 21:55 08/08/22 21:55 Radiology Impressions Chest X-Ray 08/08/22 22:36 IMPRESSION: No acute radiographic findings in the chest. Laboratory Results WBC 11.2 10^3/uL (4.0-10.0) H 08/08/22 21:55 RBC 5.19 10^6/uL (4.1-5.3) 08/08/22 21:55 Hgb 15.8 g/dL (11.5-15.3) H 08/08/22 21:55 Hct 47.2 % (37.0-47.0) H 08/08/22 21:55 MCV 90.9 fl (81-99) 08/08/22 21:55 MCH 30.4 pg (28.0-34.0) 08/08/22 21:55 MCHC 33.5 g/dL (30.0-36.0) 08/08/22 21:55 RDW 12.1 % (12.1-15.1) 08/08/22 21:55 Plt Count 297 10^3/cmm (130-400) 08/08/22 21:55 MPV 11.2 fL (7.4-10.4) H 08/08/22 21:55 Neut % (Auto) 64.9 % 08/08/22 21:55 Lymph % (Auto) 23.2 % 08/08/22 21:55 [place] % (Auto) 9.0 % 08/08/22 21:55 Eos % (Auto) 2.1 % 08/08/22 21:55 Baso % (Auto) 0.4 % 08/08/22 21:55 Neut # (Auto) 7.25 10^3/uL (1.8-7.7) 08/08/22 21:55 Lymph # (Auto) 2.6 10^3/uL (0.8-4.8) 08/08/22 21:55 [place] # (Auto) 1.0 10^3/uL (0.2-0.9) H 08/08/22 21:55 Eos # (Auto) 0.2 10^3/uL (0.0-0.8) 08/08/22 21:55 Baso # (Auto) 0.1 10^3/uL (0.0-0.1) 08/08/22 21:55 Nucleated RBC % (auto) 0 % 08/08/22 21:55 Nucleated RBCs # 0.0 /100WBC 08/08/22 21:55 Sodium 135 mmol/L (136-145) L 08/08/22 21:55 Potassium 4.5 mmol/L (3.5-5.1) 08/08/22 21:55 Chloride 95 mmol/L (98-107) L 08/08/22 21:55 Carbon Dioxide 25 mmol/L (22-29) 08/08/22 21:55 Anion Gap 19.5 (5-19) H 08/08/22 21:55 BUN 21 mg/dL (8-23) 08/08/22 21:55 Creatinine 1.2 mg/dL (0.5-0.9) H 08/08/22 21:55 GFR Calculation 45.2 mL/min (90-130) L 08/08/22 21:55 Glucose 406 mg/dL (65-115) H 08/08/22 21:55 POC Glucose 233 mg/dL (70-110) H 08/09/22 01:56 Calculated Osmolality 300 mOsm/kg (285-295) H 08/08/22 21:55 Calcium 8.6 mg/dL (8.5-10.5) 08/08/22 21:55 Magnesium 1.4 mg/dL (1.7-2.3) L 08/08/22 21:55 Total Bilirubin 0.2 mg/dL (0.15-1.2) 08/08/22 21:55 AST 15 U/L (0-32) 08/08/22 21:55 ALT 23 U/L (0-33) 08/08/22 21:55 Alkaline Phosphatase 96 U/L (35-105) 08/08/22 21:55 Creatine Kinase 30 U/L (26-192) 08/08/22 21:55 Troponin T Baseline 6 ng/L (0-10) 08/08/22 21:55 Troponin T 120 Minute 8.49 ng/L (0-10) 08/09/22 01:15 Delta Troponin T 2.49 ABS# (0-10) 08/09/22 01:15 NT-Pro-B Natriuret Pep 171 pg/mL (0-125) H 08/08/22 21:55 Total Protein 6.9 g/dL (6.6-8.7) 08/08/22 21:55 Albumin 3.7 g/dL (3.5-5.2) 08/08/22 21:55 Globulin 3.2 g/dL (1.3-4.6) 08/08/22 21:55 25-OH Vitamin D Total 38 ng/mL (30-100) 08/08/22 21:55 TSH 1.41 uIU/mL (0.27-4.20) 08/08/22 21:55 Discharge Plan Discharge Patient Disposition: Home Clinical Impression: Chest pain, Atrial fibrillation with rapid ventricular response Condition: Stable Prescriptions: New diltiazem HCl 240 mg capsule,extended release 24hr 240 mg PO DAILY Qty: 30 0RF Discontinued diltiazem HCl 120 mg capsule,extended release 24hr 120 mg PO DAILY@21 Qty: 90 0RF No Action diphenhydramine HCl [Benadryl] 25 mg capsule 25 mg PO TID PRN (Reason: Allergy Symptoms) biotin 10,000 mcg capsule PO flecainide 100 mg tablet 100 mg PO Q12H Qty: 180 3RF paroxetine HCl 20 mg tablet 40 mg PO DAILY@2100 Qty: 90 3RF fluconazole 150 mg tablet 150 mg PO ONCE PRN (Reason: yeast infection) Qty: 1 0RF hydrochlorothiazide 12.5 mg tablet 25 mg PO DAILY Qty: 90 3RF Eliquis 5 mg tablet 5 mg PO BID Qty: 180 3RF insulin glargine [Lantus Solostar U-100 Insulin] 100 unit/mL (3 mL) insulin pen 46 unit SUBCUT DAILY 60 Days Qty: 28 1RF cholecalciferol (vitamin D3) [Vitamin D3] 125 mcg (5,000 unit) tablet 250 mcg PO BID magnesium 250 mg Tablet 250 mg PO DAILY@21 Januvia 100 mg tablet 100 mg PO DAILY@21 Discharge Orders: Discharge ED (Routine); Ordered 08/09/22 Ordered By: Alex Grace Referrals: Salo Valladares MD [Primary Care Provider] - 1-3 days Activity Restrictions/Additional Instructions: Increase your dose of diltiazem to 240 mg a day to keep your rate down as we discussed. Our clinical case manager will attempt to make a follow-up appointment with cardiology for you. You should get a call at the beginning of the week. Return for worsening chest pain, other concerning symptoms. Coding Level of Care Code ED Patient Centered Care Specialist for Annie Crocker
== END 2022-08-09 02:37 | disposition home or self-care (01) ==
PROVIDERS: Emergency Provider Emergency Medicine; PCP Family Medicine
DX: R07.9 Chest pain, unspecified (principal); I48.20 Chronic atrial fibrillation, unspecified; Z79.01 Long term (current) use of anticoagulants; Z86.73 Personal history of transient ischemic attack (TIA), and cerebral infarction without residual deficits; Z85.038 Personal history of other malignant neoplasm of large intestine; E11.9 Type 2 diabetes mellitus without complications; E78.5 Hyperlipidemia, unspecified; I10 Essential (primary) hypertension
CPT/HCPCS: 36415; 36416; 71045; 80053; 82306; 82550; 82962; 83735; 83880; 84443; 84484; 85025; 93005; 96374; 99285; J1815

== ENCOUNTER → 2022-08-12 10:31 | Outpatient (BNVA) | payer MEDICAID, SELFPAY | PROVIDERS: PCP Family Medicine; Visit Provider Specialist | DX: I48.91 Unspecified atrial fibrillation (principal); E78.2 Mixed hyperlipidemia; I10 Essential (primary) hypertension; R06.02 Shortness of breath; Z79.01 Long term (current) use of anticoagulants | CPT/HCPCS: 93005; 99214 ==

== ENCOUNTER 2022-09-13 21:10 | Emergency (ER) | payer MEDICARE, MEDICAID, SELFPAY ==
[2022-09-13 21:14] VITALS: BP 138/84; PULSE 108; RESP 18; TEMP 36.7; O2SAT 97
--- NOTE | 2022-09-13 21:21 | ECG_ITS ---
[facility] Test Date: 2022-09-13 Pat Name: Emma Nguyen Department: Room: Gender: Female Svp Monetization: : 1955 Requested By: Zach Moreno Order Number: [id number] Kai MD: Silverio Youngblood M.D. Measurements Intervals [place] Rate: 106 P: 0 OK: 0 QRS: -58 QRSD: 142 T: 4 QT: 374 QTc: 498 Interpretive Statements UNCERTAIN REGULAR RHYTHM LEFT AXIS DEVIATION [QRS AXIS < -30] RIGHT BUNDLE BRANCH BLOCK [120+ ms QRS DURATION, UPRIGHT V1, 40+ ms S IN I/aVL/V4/V5/V6] POSSIBLE ANTERIOR MYOCARDIAL INFARCTION , OF INDETERMINATE AGE [30 ms Q WAVE IN V3/V4, OR R < 0.2 mV IN V4] CRITICAL TEST RESULT Compared to ECG 08/08/2022 21:41:06 Left-axis deviation now present Myocardial infarct finding now present Atrial fibrillation no longer present Right-axis deviation no longer present Electronically Signed On 09-14-2022 7:06:49 CDT by Silverio Youngblood M.D. [email or web address]/store/[id number] f
--- NOTE | 2022-09-13 21:21 | XRR_ITS ---
PROCEDURE INFORMATION: Exam: XR Chest Exam date and time: 09/13/2022 9:41 PM Age: 66 years old Clinical indication: Other: A-fib; Additional info: Cp TECHNIQUE: Imaging protocol: Radiologic exam of the chest. Views: 1 view. COMPARISON: CR (CHEST, ) 08/08/2022 10:41 PM FINDINGS: Lungs: Unremarkable. No consolidation. Pleural spaces: Unremarkable. No pleural effusion. No pneumothorax. Heart/Mediastinum: Unremarkable. No cardiomegaly. Bones/joints: Unremarkable. XR/XR chest 1V portable [id number] IMPRESSION: No acute findings.
--- NOTE | 2022-09-13 21:30 | ED_ITS ---
HPI - Chest Pain General: Chief Complaint: Chest Pain Stated Complaint: Sayes she is in Afib Time Seen by Provider: 09/13/22 21:18 Source: patient Mode of arrival: ambulatory Limitations: no limitations History of Present Illness: 66-year-old female has a history of A-fib she takes flecainide for her rate control she states that today she has been out and about shopping and felt like her heart was racing she taken her flecainide this evening was in the room her heart rate was in the 90s when she first got here was in the 100s. She has had some chest tightness throughout the day states it is typical when she goes into A-fib. Associated symptoms: Reports palpitations; Deny abdominal pain, dyspnea, fever(s), nausea or vomiting Review of Systems Const: Denies: fever(s), chills or body aches Eyes: Denies: eye discomfort ENMT: Denies: throat pain or dental pain Card: Reports: chest pain and palpitations Resp: Denies: dyspnea GI: Denies: abdominal pain, nausea, vomiting or diarrhea : Denies: dysuria Musc: Denies: neck pain or back pain Skin/Breast: Denies: rash PFSH ED PFSH: Medical History Atrial fibrillation Colon cancer CVA (cerebral vascular accident) Diabetes mellitus Hyperlipidemia Hypertension Hypomagnesemia Morbid obesity with BMI of 50.0-59.9, adult Trigger thumb, left thumb Uncontrolled type 2 diabetes mellitus Surgical History H/O carpal tunnel repair Hx of cholecystectomy S/P colon resection Family History Other Obesity Social History Smoking and tobacco status: never smoked Alcohol intake: never Female Reproductive History: Spontaneous abortions: No Physical Exam Const: COMMON NORMALS: no acute distress, patient oriented x3 and healthy appearing HENMT: COMMON NORMALS: normocephalic and atraumatic HEAD & SCALP: normocephalic and atraumatic Eye: COMMON NORMALS: conjunctivae normal CONJUNCTIVA: Yes conjunctivae normal Neck/C-Spine: COMMON NORMALS: full ROM and supple Chest: COMMONS NORMALS: normal inspection of the chest and normal palpation of entire chest wall Resp: COMMON NORMALS: normal respiratory effort, No retractions, No use of accessory muscles and clear to auscultation bilaterally AUSCULTATION: clear to auscultation bilaterally Cardio: COMMON NORMALS: regular rate and No murmurs present (Cardio) RATE: regular rate RHYTHM: abnormal rhythm irregularly irregular GI: COMMON NORMALS: Normal to inspection, nondistended, normoactive bowel sounds present, Soft to palpation, non-tender and no masses PALPATION: Yes Soft to palpation Extremity: COMMON NORMALS: normal to inspection and full ROM Neuro: COMMON NORMALS: patient oriented x3, moves all extremities and no focal motor deficits Psych: COMMON NORMALS: mental status grossly normal, Normal thought process present and cooperative THOUGHT PROCESS: Normal thought process present Skin: COMMON NORMALS: no rashes or lesions noted and no wounds GENERAL SKIN EXAM: no rashes or lesions noted Course Vital Signs: Vital signs: Vital Signs Temperature 98.1 F 09/13/22 21:14 Pulse Rate 78 09/13/22 23:19 Respiratory Rate 25 H 09/13/22 23:19 Blood Pressure 122/76 09/13/22 23:19 Pulse Oximetry 98 09/13/22 23:19 Oxygen Delivery Me thod Room Air 09/13/22 23:19 MDM - Chest Pain Medical Decision Making Patient presents here with chest pain along with A-fib with RVR her chest pain is likely from her A-fib she had no pain here heart rates been normal. 70s currently. Her troponins are normal she is stable for discharge she is follow- up with PCP and return if worsening. Differential Diagnosis Unlikely acute massive pulmonary embolism, acute respiratory failure or acute myocardial infarction Medical Records I reviewed the patient's medical records. Lab Data 09/13/22 21:34 09/13/22 21:34 Radiology Impressions Chest X-Ray 09/13/22 21:21 IMPRESSION: No acute findings. Laboratory Results WBC 9.2 10^3/uL (4.0-10.0) 09/13/22 21:34 RBC 5.17 10^6/uL (4.1-5.3) 09/13/22 21:34 Hgb 15.6 g/dL (11.5-15.3) H 09/13/22 21:34 Hct 47.0 % (37.0-47.0) 09/13/22 21:34 MCV 90.9 fl (81-99) 09/13/22 21:34 MCH 30.2 pg (28.0-34.0) 09/13/22 21:34 MCHC 33.2 g/dL (30.0-36.0) 09/13/22 21:34 RDW 12.3 % (12.1-15.1) 09/13/22 21:34 Plt Count 301 10^3/cmm (130-400) 09/13/22 21:34 MPV 10.9 fL (7.4-10.4) H 09/13/22 21:34 Neut % (Auto) 61.5 % 09/13/22 21:34 Lymph % (Auto) 26.3 % 09/13/22 21:34 [place] % (Auto) 8.6 % 09/13/22 21:34 Eos % (Auto) 2.6 % 09/13/22 21:34 Baso % (Auto) 0.7 % 09/13/22 21:34 Neut # (Auto) 5.63 10^3/uL (1.8-7.7) 09/13/22 21:34 Lymph # (Auto) 2.4 10^3/uL (0.8-4.8) 09/13/22 21:34 [place] # (Auto) 0.8 10^3/uL (0.2-0.9) 09/13/22 21:34 Eos # (Auto) 0.2 10^3/uL (0.0-0.8) 09/13/22 21:34 Baso # (Auto) 0.1 10^3/uL (0.0-0.1) 09/13/22 21:34 Nucleated RBC % (auto) 0 % 09/13/22:34 Nucleated RBCs # 0.0 /100WBC 09/13/22 21:34 PT 13.90 SECONDS (12.1-14.9) 09/13/22 21:34 INR 1.03 (0.8-1.2) 09/13/22 21:34 Sodium 132 mmol/L (136-145) L 09/13/22 21:34 Potassium 4.2 mmol/L (3.5-5.1) 09/13/22 21:34 Chloride 95 mmol/L (98-107) L 09/13/22 21:34 Carbon Dioxide 23 mmol/L (22-29) 09/13/22 21:34 Anion Gap 18.2 (5-19) 09/13/22 21:34 BUN 36 mg/dL (8-23) H 09/13/22 21:34 Creatinine 1.2 mg/dL (0.5-0.9) H 09/13/22 21:34 GFR Calculation 45.2 mL/min (90-130) L 09/13/22 21:34 Glucose 308 mg/dL (65-115) H 09/13/22 21:34 Calculated Osmolality 294 mOsm/kg (285-295) 09/13/22 21:34 Calcium 8.9 mg/dL (8.5-10.5) 09/13/22 21:34 Total Bilirubin 0.2 mg/dL (0.15-1.2) 09/13/22 21:34 AST 27 U/L (0-32) 09/13/22 21:34 ALT 45 U/L (0-33) H 09/13/22 21:34 Alkaline Phosphatase 89 U/L (35-105) 09/13/22 21:34 Troponin T Baseline 8 ng/L (0-10) 09/13/22 21:34 Troponin T 120 Minute 9.17 ng/L (0-10) 09/13/22 23:43 Total Protein 6.8 g/dL (6.6-8.7) 09/13/22 21:34 Albumin 3.8 g/dL (3.5-5.2) 09/13/22 21:34 Globulin 3.0 g/dL (1.3-4.6) 09/13/22 21:34 EKG Data EKG 1: I personally reviewed and interpreted this EKG as follows: EKG interpretation date: 09/13/22 EKG interpretation time: 21:16 Interpretation: afib hr [address] elevation qrs 142 qtc 436 Discharge Plan Discharge Patient Disposition: Home Clinical Impression: Atrial fibrillation with rapid ventricular response, Chest pain Condition: Stable Prescriptions: No Action diphenhydramine HCl [Benadryl] 25 mg capsule 25 mg PO TID PRN (Reason: Allergy Symptoms) biotin 10,000 mcg capsule PO flecainide 100 mg tablet 100 mg PO Q12H Qty: 180 3RF paroxetine HCl 20 mg tablet 40 mg PO DAILY@2100 Qty: 90 3RF fluconazole 150 mg tablet 150 mg PO ONCE PRN (Reason: yeast infection) Qty: 1 0RF hydrochlorothiazide 12.5 mg tablet 25 mg PO DAILY Qty: 90 3RF Eliquis 5 mg tablet 5 mg PO BID Qty: 180 3RF insulin glargine [Lantus Solostar U-100 Insulin] 100 unit/mL (3 mL) insulin pen 46 unit SUBCUT DAILY 60 Days Qty: 28 1RF sulfamethoxazole-trimethoprim [Bactrim DS] 800-160 mg tablet 1 tab PO BID Qty: 14 0RF diltiazem HCl 240 mg capsule,extended release 24hr 240 mg PO DAILY Qty: 90 0RF Januvia 100 mg tablet See Rx Instructions .ROUTE .COMPLEX Qty: 30 12RF Dose Instruction: TAKE ONE TABLET BY MOUTH DAILY AT 9:00 EVERY EVENING Rx Instructions: TAKE ONE TABLET BY MOUTH DAILY AT 9:00 EVERY EVENING cholecalciferol (vitamin D3) [Vitamin D3] 125 mcg (5,000 unit) tablet 250 mcg PO BID magnesium 250 mg Tablet 250 mg PO DAILY@21 Discharge Orders: Discharge ED (Routine); Ordered 09/14/22 Ordered By: Zach Moreno Referrals: Salo Valladares MD [Primary Care Provider] - 1-3 days Discharge Diet: Advance as tolerated Discharge Activity: Resume usual activity Patient Instructions: A-fib (Atrial Fibrillation) (ED), Chest Pain (ED) Coding Level of Care Code ED Mechanical Engineering Director for Annie Crocker
[2022-09-13 21:31] VITALS: PULSE 94; RESP 20; O2SAT 94
[2022-09-13] MEDS: dilTIAZem 5 mg/mL SDV 5 mL 10 MG IVP (21:36)
[2022-09-13 21:37] VITALS: BP 103/62; PULSE 92; RESP 20; O2SAT 96
--- NOTE | 2022-09-13 21:48 | ECG_ITS ---
[facility] Test Date: 2022-09-13 Pat Name: Emma Nguyen Department: Room: Gender: Female Director Of Operations Support: : 1955 Requested By: Zach Moreno Order Number: [id number] Kai MD: Silverio Youngblood M.D. Measurements Intervals [place] Rate: 81 P: 0 ME: 0 QRS: 256 QRSD: 143 T: 22 QT: 402 QTc: 468 Interpretive Statements Sinus rhythm with a first-degree AV block and a short run of ectopic atrial rhythm RIGHT AXIS DEVIATION [QRS AXIS > 100] RIGHT BUNDLE BRANCH BLOCK [120+ ms QRS DURATION, UPRIGHT V1, 40+ ms S IN I/aVL/V4/V5/V6] POSSIBLE ANTERIOR MYOCARDIAL INFARCTION , OF INDETERMINATE AGE [30 ms Q WAVE IN V3/V4, OR R < 0.2 mV IN V4] Compared to ECG 08/08/2022 21:41:06 Myocardial infarct finding now present Electronically Signed On 09-14-2022 7:08:23 CDT by Silverio Youngblood M.D. [email or web address].[employer]/store/[id number]
[2022-09-13 21:59] LABS: Hemoglobin 15.6 g/dL (11.5-15.3); Red Blood Count 5.17 10^6/uL (4.1-5.3); White Blood Count 9.2 10^3/uL (4.0-10.0)
[2022-09-13 22:00] LABS: Mean Corpuscular HGB Conc 33.2 g/dL (30.0-36.0); Mean Corpuscular Hemoglobin 30.2 pg (28.0-34.0); Mean Corpuscular Volume 90.9 fl (81-99); Mean Platelet Volume 10.9 fL (7.4-10.4); Neutrophils % 61.5 %; Platelet Count 301 10^3/cmm (130-400); Red Cell Distribution Width 12.3 % (12.1-15.1)
[2022-09-13 22:01] LABS: Basophils % 0.7 %; Eosinophils % 2.6 %; Lymphocytes % 26.3 %; Monocytes % 8.6 %
[2022-09-13 22:04] LABS: INR 1.03 (0.8-1.2)
[2022-09-13 22:09] LABS: Troponin(5th) Baseline 8 ng/L (0-10)
[2022-09-13 22:10] LABS: Alanine Aminotransferase 45 U/L (0-33); Albumin Level 3.8 g/dL (3.5-5.2); Alkaline Phosphatase 89 U/L (35-105); Anion Gap 18.2 (5-19); Aspartate Amino Transferase 27 U/L (0-32); Blood Urea Nitrogen 36 mg/dL (8-23); Calcium 8.9 mg/dL (8.5-10.5); Carbon Dioxide 23 mmol/L (22-29); Chloride 95 mmol/L (98-107); Glomerular Filtration Rate 45.2 mL/min (90-130); Glucose 308 mg/dL (65-115); Osmolality Calculated 294 mOsm/kg (285-295); Potassium 4.2 mmol/L (3.5-5.1); Sodium 132 mmol/L (136-145); Total Bilirubin 0.2 mg/dL (0.15-1.2); Total Protein 6.8 g/dL (6.6-8.7)
[2022-09-13] MEDS: sodium chloride 0.9% 1,000 ML 999 ML IV (22:15)
[2022-09-13 22:25] VITALS: BP 124/69; PULSE 88; RESP 18; O2SAT 92
[2022-09-13 22:53] LABS: Basophils # 0.1 10^3/uL (0.0-0.1); Eosinophils # 0.2 10^3/uL (0.0-0.8); Lymphocytes # 2.4 10^3/uL (0.8-4.8); Monocytes # 0.8 10^3/uL (0.2-0.9); Neutrophils # 5.63 10^3/uL (1.8-7.7); Nucleated Red Blood Cells % 0 %
[2022-09-13 23:02] VITALS: BP 117/67; PULSE 91; RESP 17; O2SAT 93
[2022-09-13 23:19] VITALS: BP 122/76; PULSE 78; RESP 25; O2SAT 98
--- NOTE | 2022-09-13 23:21 | ECG_ITS ---
[facility] Test Date: 2022-09-13 Pat Name: Emma Nguyen Department: Room: Gender: Female Product Strategy Director: : 1955 Requested By: Zach Moreno Order Number: [id number] Kai MD: Silverio Youngblood M.D. Measurements Intervals [place] Rate: 80 P: 85 HI: 320 QRS: 258 QRSD: 152 T: 24 QT: 407 QTc: 472 Interpretive Statements SINUS RHYTHM WITH SINUS ARRHYTHMIA WITH FIRST DEGREE AV BLOCK RIGHT AXIS DEVIATION [QRS AXIS > 100] RIGHT BUNDLE BRANCH BLOCK [120+ ms QRS DURATION, UPRIGHT V1, 40+ ms S IN I/aVL/V4/V5/V6] Compared to ECG 09/13/2022 21:48:00 First degree AV block now present Atrial fibrillation no longer present Myocardial infarct finding no longer present Electronically Signed On 09-15-2022 0:28:10 CDT by Silverio Youngblood M.D. [email or web address].[facility].[employer]/store/[id number]
[2022-09-14 00:09] LABS: Troponin 5 2HR 9.17 ng/L (0-10)
[2022-09-14 00:14] LABS: Troponin 5 2HR Delta 1.17 ABS# (0-10)
[2022-09-14 00:15] VITALS: BP 121/70; PULSE 82; RESP 18; O2SAT 98
[2022-09-14 00:19] VITALS: BP 117/79; PULSE 86; RESP 19; O2SAT 92
[2022-09-14 00:30] VITALS: BP 117/79; PULSE 86; RESP 18; O2SAT 92
== END 2022-09-14 00:32 | disposition home or self-care (01) ==
PROVIDERS: Emergency Provider Emergency Medicine; PCP Family Medicine
DX: R07.9 Chest pain, unspecified (principal); I48.20 Chronic atrial fibrillation, unspecified; Z79.01 Long term (current) use of anticoagulants; Z79.4 Long term (current) use of insulin; Z85.038 Personal history of other malignant neoplasm of large intestine; Z86.73 Personal history of transient ischemic attack (TIA), and cerebral infarction without residual deficits; E11.9 Type 2 diabetes mellitus without complications; E78.5 Hyperlipidemia, unspecified; I10 Essential (primary) hypertension
CPT/HCPCS: 71045; 80053; 84484; 85025; 85610; 93005; 96374; 99285; J3490; J7030

== ENCOUNTER → 2022-09-16 07:57 | Outpatient (BNVA) | payer MEDICARE, MEDICAID, SELFPAY | PROVIDERS: PCP Family Medicine; Visit Provider Student in an Organized Health Care Education/Training Program | DX: M17.12 Unilateral primary osteoarthritis, left knee (principal) | CPT/HCPCS: 20610; 73560; 73565; 99214; J3301 ==

== ENCOUNTER 2022-09-17 09:30 | Outpatient (CLI) | payer MEDICARE, MEDICAID, SELFPAY ==
[2022-09-17 10:28] VITALS: BMI 54.0
--- NOTE | 2022-09-17 10:28 | ECG_ITS ---
[facility] Test Date: 2022-09-17 Pat Name: Emma Nguyen Department: Room: Gender: Female Vacuum Furnace Operator: Citlali Wilcox : 1955 Requested By: Shawn Allison Order Number: [id number] Kai MD: Donald Pierce M.D. Interpretive Statements NAME OF STUDY: LEXISCAN SESTAMIBI STRESS TEST INDICATION: [Chest Pain] Procedure: At the baseline, the blood pressure was 117/93 mmHg with a heart rate of 77 bpm. The electrocardiogram showed normal sinus rhythm with first degree AV block, incomplete right bundle branch block with normal ST and T's. The Lexiscan was infused over a period of 20 seconds. A total of 0.4 mg of Lexiscan was infused. The stress phase was continued for a total of 5 minutes. Heart rate was at the end of stress phase was 84 bpm and a blood pressure of 129/89 mmHg. The EKG at the peak infusion revealed normal sinus rhythm with no significant ST-T wave changes. Sestamibi was injected 20 seconds after the Lexiscan infusion. Blood pressure at the end of recovery phase was 133/89 mmHg with a heart rate of 83 bpm. Conclusion: 1. Normal EKG response to Lexiscan infusion 2. No Lexiscan induced chest pain or cardiac arrhythmia. 3. Normal blood pressure and heart rate response. 4. Sestamibi/sestamibi perfusion scan pending; see separate report. Electronically Signed On 10-02-2022 21:08:10 CDT by Donald Pierce M.D. [email or web address].[employer]/store/[id number]
--- NOTE | 2022-09-17 10:30 | NMCV_ITS ---
NM damion perf SPECT r/s* [id number] Patrick Emma Age: 66 Gender: F : 1955 Exam Date: 09/17/2022 11:11 Ordering Phys: Shawn Allison MD ([email or web address]) Technologist: RAJINDER Hoover Exam Location: [facility] Indications: CHEST PAIN, SHORTNESS OF BREATH STRESS TEST Please see separate stress test report in [facility] for full findings IMAGE PROTOCOL Rest/Stress 1 Lexiscan Day Radiopharmaceutical Dose (mCi) Administration Site Administered by Rest: Tc-99m 10.5 IV Wilmer Baker, RAILROAD HAND Sestamibi Stress:Tc-99m 33.0 IV Wilmer Baker, RAILROAD HAND Sestamibi Rest: 17-Sep-2022 60 Discovery 630 Stress: 17-Sep-2022 30 Discovery 630 0.4mg Lexiscan. Images obtained in supine and prone position. SPECT RESULTS Technical Quality: Excellent Raw Data Analysis: Normal, Breast attenuation Image Corrections: No attenuation or motion correction applied Summed Stress Score: 2 Summed Rest Score: 6 Summed Difference Score: 1 PERFUSION FINDINGS SPECT images demonstrate homogeneous tracer distribution throughout the myocardium. FUNCTIONAL RESULTS (calculated via Gated SPECT) Stress Image LV EF (%): 76 Stress EDV (mL):71 TID: 1.1 Stress ESV (mL):17 FUNCTIONAL FINDINGS: There is normal left ventricular systolic function. IMPRESSIONS 1. Normal myocardial perfusion imaging with no evidence of ischemia 2. LV systolic function is normal Donald Pierce MD (Electronically Signed) Final Date: 17 Sep 2022 13:34 S
[2022-09-17] MEDS: regadenoson 0.4 Mg/5 ml Syringe IVP (11:50)
[2022-09-17 12:20] VITALS: BP 133/89; PULSE 84
== END 2022-09-17 09:31 | disposition home or self-care (01) ==
LOC: CDL 09:34
PROVIDERS: PCP Family Medicine; Visit Provider Specialist
DX: R07.9 Chest pain, unspecified (principal)
CPT/HCPCS: 36415; 78452; 93017; 96374; A9500; J2785

== ENCOUNTER 2022-09-18 18:14 | Emergency (ER) | payer MEDICARE, MEDICAID, SELFPAY ==
[2022-09-18 18:19] VITALS: BP 148/85; PULSE 79; RESP 16; TEMP 36.9; O2SAT 97; BMI 54.0
--- NOTE | 2022-09-18 18:24 | ECG_ITS ---
[facility] Test Date: 2022-09-18 Pat Name: Emma Nguyen Department: Room: Gender: Female Technician Automatic: : 1955 Requested By: Alex Leong Order Number: [id number] Kai MD: Guillermo Sims M.D. Measurements Intervals [place] Rate: 79 P: 127 AL: 270 QRS: -40 QRSD: 150 T: 11 QT: 397 QTc: 457 Interpretive Statements SINUS RHYTHM WITH FIRST DEGREE AV BLOCK LEFT AXIS DEVIATION [QRS AXIS < -30] RIGHT BUNDLE BRANCH BLOCK [120+ ms QRS DURATION, UPRIGHT V1, 40+ ms S IN I/aVL/V4/V5/V6] POSSIBLE ANTEROSEPTAL MYOCARDIAL INFARCTION , OF INDETERMINATE AGE [30 ms Q WAVE IN V1-V4] Compared to ECG 09/13/2022 23:48:21 Left-axis deviation now present Myocardial infarct finding now present Sinus arrhythmia no longer present Right-axis deviation no longer present Electronically Signed On 09-19-2022 10:20:04 CDT by Guillermo Sims M.D. [email or web address].[employer]/store/[id number]
--- NOTE | 2022-09-18 18:52 | XRR_ITS ---
PROCEDURE INFORMATION: Exam: XR Chest Exam date and time: 09/18/2022 7:12 PM Age: 66 years old Clinical indication: Pain; Chest pressure; Additional info: Chest pain with palpitations TECHNIQUE: Imaging protocol: Radiologic exam of the chest. Views: 1 view. COMPARISON: CR (CHEST, ) 09/13/2022 9:41 PM FINDINGS: Lungs: Unremarkable. No consolidation. Pleural spaces: Unremarkable. No pleural effusion. No pneumothorax. Heart/Mediastinum: Cardiac silhouette appears mildly enlarged on this portable chest. Bones/joints: Unremarkable. XR/XR chest 1V portable [id number] IMPRESSION: Mild cardiomegaly otherwise negative chest.
[2022-09-18 19:00] VITALS: BP 159/85; PULSE 81; RESP 16; O2SAT 99
[2022-09-18] MEDS: aspirin 81 mg Chew Tablet 324 MG PO (19:24)
[2022-09-18] MEDS: sodium chloride 0.9% 1,000 ML 999 ML IV (19:24)
--- NOTE | 2022-09-18 19:39 | ED_ITS ---
HPI - Arrhythmia/Palpitations General: Chief Complaint: Arrhythmia/Palpitations Stated Complaint: high bp Time Seen by Provider: 09/18/22 18:39 History of Present Illness: 66-year-old female presents emergency department chief complaint of having interim episodes of atrial fibrillation and intermittent chest pain episodes she receives her software configuration engineer a couple days ago and also had a nuclear stress test patient is unaware with the findings of this were patient reports that she is on Eliquis as well as a new medication for her high blood pressure she does report her blood pressure has been high for the last several weeks which he medication was just initiated yesterday which she took her first dose today patient does not recall any recent infections or illnesses reporting no other associated symptoms. Associated symptoms: Deny anxiety, nausea or vomiting Review of Systems General: Reports: 10 or more systems reviewed and unremarkable except in HPI and below Const: Denies: fever(s), chills, fatigue or malaise Eyes: Denies: change in vision or blurry vision Card: Reports: chest pain and palpitations Resp: Denies: dyspnea or productive cough GI: Denies: abdominal pain, nausea or vomiting : Denies: flank pain Musc: Denies: extremity pain or extremity swelling Skin/Breast: Denies: rash or pruritus Neuro: Denies: headache(s) Psych: Denies: anxiety or depression [place]/Lymph: Denies: easy bleeding All/Imm: Denies: urticaria, throat swelling or facial swelling PFSH ED PFSH: Medical History Atrial fibrillation Colon cancer CVA (cerebral vascular accident) Diabetes mellitus Hyperlipidemia Hypertension Hypomagnesemia Morbid obesity with BMI of 50.0-59.9, adult Trigger thumb, left thumb Uncontrolled type 2 diabetes mellitus Surgical History H/O carpal tunnel repair Hx of cholecystectomy S/P colon resection Family History Other Obesity Social History Smoking and tobacco status: never smoked Alcohol intake: never Female Reproductive History: Spontaneous abortions: No Physical Exam Narrative: EXAM NARRATIVE: Patient appears nontoxic appears in no obvious acute distress currently in normal sinus rhythm rate of [address] segment elevation depressions appreciated. No obvious acute distress. Const: COMMON NORMALS: no acute distress, patient oriented x3 and healthy appearing HENMT: COMMON NORMALS: normocephalic and atraumatic HEAD & SCALP: normocephalic and atraumatic Eye: COMMON NORMALS: Equal, round and reactive pupils present and EOMs intact bilaterally PUPIL: Yes Equal, round and reactive pupils present Neck/C-Spine: COMMON NORMALS: full ROM, supple and no JVD Lymph: LYMPHATIC: no lymphadenopathy noted Chest: COMMONS NORMALS: normal inspection of the chest and normal palpation of entire chest wall Resp: COMMON NORMALS: normal respiratory effort, No retractions and clear to auscultation bilaterally EFFORT & INSPECTION: Yes able to speak in complete sentences and Yes symmetric chest movement AUSCULTATION: clear to auscultation bilaterally Cardio: COMMON NORMALS: no JVD, regular rate and regular rhythm RATE: regular rate RHYTHM: regular rhythm GI: COMMON NORMALS: Normal to inspection, nondistended, normoactive bowel sounds present, Soft to palpation and non-tender INSPECTION: Yes normal to inspection PALPATION: Yes Soft to palpation : COMMON NORMALS: Yes no CVA tenderness BLADDER/KIDNEY EXAM: Yes no CVA tenderness Back/Pelvis: COMMON NORMALS: no CVA tenderness Extremity: COMMON NORMALS: normal to inspection and full ROM Neuro: COMMON NORMALS: patient oriented x3, CN's II-XII intact bilaterally, moves all extremities and no focal motor deficits Psych: COMMON NORMALS: mental status grossly normal, Normal thought process present, cooperative and normal affect THOUGHT PROCESS: Normal thought process present Skin: COMMON NORMALS: no rashes or lesions noted GENERAL SKIN EXAM: no rashes or lesions noted Course Vital Signs: Vital signs: Vital Signs Temperature 98.5 F 09/18/22 18:19 Pulse Rate 69 09/18/22 21:12 Respiratory Rate 16 09/18/22 21:12 Blood Pressure 133/69 09/18/22 21:12 Pulse Oximetry 95 09/18/22 21:12 Oxygen Delivery Me thod Room Air 09/18/22 18:19 MDM - Arrhythmia/Palpitations Medical Decision Making Due to patient's symptoms condition IV will be established basic lab work imaging will be obtained we will continue to follow. Patient's initial troponin and 2-hour troponin came back unremarkable advised patient continue on her current medication regimen throughout this patient stay in the emergency department her blood pressure has improved advised that she continue on her current medication regimen as right now there is does not appear to be any obvious ischemic cardiomyopathy or ischemic heart disease occurring advised she further contact her primary care doctor or software configuration engineer in 3 to 5 days with patient was advised strongly encouraged to return if any of her symptoms persist or worse. Lab Data 09/18/22 19:35 09/18/22 19:35 Radiology Impressions Chest X-Ray 09/18/22 18:52 IMPRESSION: Mild cardiomegaly otherwise negative chest. Laboratory Results WBC 9.2 10^3/uL (4.0-10.0) 09/18/22 19:35 RBC 4.89 10^6/uL (4.1-5.3) 09/18/22 19:35 Hgb 14.8 g/dL (11.5-15.3) 09/18/22 19:35 Hct 45.2 % (37.0-47.0) 09/18/22 19:35 MCV 92.4 fl (81-99) 09/18/22 19:35 MCH 30.3 pg (28.0-34.0) 09/18/22 19:35 MCHC 32.7 g/dL (30.0-36.0) 09/18/22 19:35 RDW 12.3 % (12.1-15.1) 09/18/22 19:35 Plt Count 315 10^3/cmm (130-400) 09/18/22 19:35 MPV 10.7 fL (7.4-10.4) H 09/18/22 19:35 Neut % (Auto) 73.0 % 09/18/22 19:35 Lymph % (Auto) 17.7 % 09/18/22 19:35 [place] % (Auto) 7.4 % 09/18/22 19:35 Eos % (Auto) 1.1 % 09/18/22 19:35 Baso % (Auto) 0.4 % 09/18/22 19:35 Neut # (Auto) 6.74 10^3/uL (1.8-7.7) 09/18/22 19:35 Lymph # (Auto) 1.6 10^3/uL (0.8-4.8) 09/18/22 19:35 [place] # (Auto) 0.7 10^3/uL (0.2-0.9) 09/18/22 19:35 Eos # (Auto) 0.1 10^3/uL (0.0-0.8) 09/18/22 19:35 Baso # (Auto) 0.0 10^3/uL (0.0-0.1) 09/18/22 19:35 Nucleated RBC % (auto) 0 % 09/18/22 19:35 Nucleated RBCs # 0.0 /100WBC 09/18/22 19:35 PT 13.30 SECONDS (12.1-14.9) 09/18/22 19:35 INR 0.98 (0.8-1.2) 09/18/22 19:35 APTT 26.4 SECONDS (23.9-36.7) 09/18/22 19:35 Sodium 136 mmol/L (136-145) 09/18/22 19:35 Potassium 4.4 mmol/L (3.5-5.1) 09/18/22 19:35 Chloride 98 mmol/L (98-107) 09/18/22 19:35 Carbon Dioxide 25 mmol/L (22-29) 09/18/22 19:35 Anion Gap 17.4 (5-19) 09/18/22 19:35 BUN 37 mg/dL (8-23) H 09/18/22 19:35 Creatinine 1.2 mg/dL (0.5-0.9) H 09/18/22 19:35 GFR Calculation 45.2 mL/min (90-130) L 09/18/22 19:35 Glucose 305 mg/dL (65-115) H 09/18/22 19:35 Calculated Osmolality 302 mOsm/kg (285-295) H 09/18/22 19:35 Calcium 9.4 mg/dL (8.5-10.5) 09/18/22 19:35 Total Bilirubin 0.2 mg/dL (0.15-1.2) 09/18/22 19:35 AST 13 U/L (0-32) 09/18/22 19:35 ALT 30 U/L (0-33) 09/18/22 19:35 Alkaline Phosphatase 74 U/L (35-105) 09/18/22 19:35 Troponin T Baseline 7 ng/L (0-10) 09/18/22 19:35 Troponin T 120 Minute 6.00 ng/L (0-10) 09/18/22 21:34 Delta Troponin T -1 ABS# (0-10) L 09/18/22 21:34 NT-Pro-B Natriuret Pep 342 pg/mL (0-125) H 09/18/22 19:35 Total Protein 7.5 g/dL (6.6-8.7) 09/18/22 19:35 Albumin 4.2 g/dL (3.5-5.2) 09/18/22 19:35 Globulin 3.3 g/dL (1.3-4.6) 09/18/22 19:35 Lipase 40 U/L (13-60) 09/18/22 19:35 Urine Color Yellow (Yellow) 09/18/22 19:08 Urine Appearance Clear (CLEAR) 09/18/22 19:08 Urine pH 5 (5-7) 09/18/22 19:08 Ur Specific [place] 1.015 (1.005-1.030) 09/18/22 19:08 Urine Protein Neg (Negative) 09/18/22 19:08 Urine Glucose (UA) 4+ (Normal) H 09/18/22 19:08 Urine Ketones Negative (Negative) 09/18/22 19:08 Urine Blood Neg (Negative) 09/18/22 19:08 Urine Nitrate Negative (Negative) 09/18/22 19:08 Urine Bilirubin Neg (Negative) 09/18/22 19:08 Urine Urobilinogen Norm mg/dL (Negative) 09/18/22 19:08 Ur Leukocyte Esterase Trace (Negative) H 09/18/22 19:08 Urine RBC 0-4 /hpf (0-2) H 09/18/22 19:08 Urine WBC 15-25 /hpf (0-5) H 09/18/22 19:08 Ur Squamous Epith Cells 0-4 /hpf (0-5) H 09/18/22 19:08 Amorphous Sediment Not Reportable 09/18/22 19:08 Urine Bacteria Trace /hpf (NONE) 09/18/22 19:08 EKG Data Normal sinus rhythm rate of [address] segment elevation depressions appreciated appearing unremarkable at this time: Other EKG comments: Chest X-Ray 09/18/22 18:52 IMPRESSION: Mild cardiomegaly otherwise negative chest. Discharge Plan Discharge Patient Disposition: Home Clinical Impression: Paroxysmal atrial fibrillation, History of chest pain Condition: Stable Prescriptions: No Action diphenhydramine HCl [Benadryl] 25 mg capsule 25 mg PO TID PRN (Reason: Allergy Symptoms) triamcinolone acetonide [Kenalog] 40 mg/mL suspension 40 mg intra-articular ONCE Qty: 1 0RF lidocaine (PF) 10 mg/mL (1 %) solution 10 mg intra-articular ONCE Qty: 1 0RF (DME) Medial Seismic Prospecting Observer Helper Brace See Rx Instructions .Route .MEDSUPPLY Qty: 1 0RF Rx Instructions: As directed biotin 10,000 mcg capsule PO flecainide 100 mg tablet 100 mg PO Q12H Qty: 180 3RF paroxetine HCl 20 mg tablet 40 mg PO DAILY@2100 Qty: 90 3RF fluconazole 150 mg tablet 150 mg PO ONCE PRN (Reason: yeast infection) Qty: 1 0RF hydrochlorothiazide 12.5 mg tablet 25 mg PO DAILY Qty: 90 3RF Eliquis 5 mg tablet 5 mg PO BID Qty: 180 3RF insulin glargine [Lantus Solostar U-100 Insulin] 100 unit/mL (3 mL) insulin pen 46 unit SUBCUT DAILY 60 Days Qty: 28 1RF sulfamethoxazole-trimethoprim [Bactrim DS] 800-160 mg tablet 1 tab PO BID Qty: 14 0RF diltiazem HCl 240 mg capsule,extended release 24hr 240 mg PO DAILY Qty: 90 0RF Januvia 100 mg tablet See Rx Instructions .ROUTE .COMPLEX Qty: 30 12RF Dose Instruction: TAKE ONE TABLET BY MOUTH DAILY AT 9:00 EVERY EVENING Rx Instructions: TAKE ONE TABLET BY MOUTH DAILY AT 9:00 EVERY EVENING losartan 50 mg tablet 50 mg PO DAILY Qty: 30 3RF cholecalciferol (vitamin D3) [Vitamin D3] 125 mcg (5,000 unit) tablet 250 mcg PO BID magnesium 250 mg Tablet 250 mg PO DAILY@21 Discharge Orders: Discharge ED (Routine); Ordered 09/18/22 Ordered By: Esvin Arreguin Referrals: Salo Valladares MD [Primary Care Provider] - 1-3 days (For further assessment and management of your high blood pressure medication regimen and your atrial fibrillation evaluation) Discharge Diet: Cardiac Discharge Activity: Increase activity as tolerated Patient Instructions: Atrial Fibrillation, A-fib (Atrial Fibrillation) (ED) Activity Restrictions/Additional Instructions: Your lab work and imaging obtained the emergency department today appears unremarkable is advised to review to continue on your current medication regimen there is been no labs suggestive of ischemia due to your current paroxysmal atrial fibrillation please continue taking make it medications as prescribed please further follow-up with your primary care doctor doctor or software configuration engineer next 3 to 5 days in which please return the interim if any of your symptoms persist or worsen or return. 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
[2022-09-18 19:43] LABS: Basophils % 0.4 %; Eosinophils # 0.1 10^3/uL (0.0-0.8); Eosinophils % 1.1 %; Hematocrit 45.2 % (37.0-47.0); Hemoglobin 14.8 g/dL (11.5-15.3); Lymphocytes # 1.6 10^3/uL (0.8-4.8); Lymphocytes % 17.7 %; Mean Corpuscular HGB Conc 32.7 g/dL (30.0-36.0); Mean Corpuscular Hemoglobin 30.3 pg (28.0-34.0); Mean Corpuscular Volume 92.4 fl (81-99); Mean Platelet Volume 10.7 fL (7.4-10.4); Monocytes # 0.7 10^3/uL (0.2-0.9); Monocytes % 7.4 %; Neutrophils # 6.74 10^3/uL (1.8-7.7); Nucleated Red Blood Cells % 0 %; Platelet Count 315 10^3/cmm (130-400); Red Blood Count 4.89 10^6/uL (4.1-5.3); Red Cell Distribution Width 12.3 % (12.1-15.1); White Blood Count 9.2 10^3/uL (4.0-10.0)
[2022-09-18 19:43] LABS: Add Urine Culture? No; Add Urine Microscopic? YES; Bacteria Urine TRACE /hpf; Bilirubin Urine Neg (Negative); Blood Urine Neg (Negative); Glucose Urine UA 4+ (Normal); Ketones Urine Negative (Negative); Leukocyte Esterase Urine Trace (Negative); Nitrate Urine Negative (Negative); Protein Urine Neg (Negative); RBC Urine 0-4 /hpf (0-2); Specific Gravity, Urine 1.015 (1.005-1.030); Squamous Epithelial Cell Urine 0-4 /hpf (0-5); Urine Appearance Clear (CLEAR); Urine Color Yellow (Yellow); Urobilinogen Urine Norm (Negative); WBC Urine 15-25 /hpf (0-5); pH Urine 5 (5-7)
[2022-09-18 19:56] LABS: INR 0.98 (0.8-1.2)
[2022-09-18 19:57] LABS: Partial Thromboplastin Time 26.4 SECONDS (23.9-36.7)
[2022-09-18 20:02] LABS: Troponin(5th) Baseline 7 ng/L (0-10)
[2022-09-18 20:10] LABS: Alanine Aminotransferase 30 U/L (0-33); Albumin Level 4.2 g/dL (3.5-5.2); Alkaline Phosphatase 74 U/L (35-105); Anion Gap 17.4 (5-19); Aspartate Amino Transferase 13 U/L (0-32); Blood Urea Nitrogen 37 mg/dL (8-23); Calcium 9.4 mg/dL (8.5-10.5); Carbon Dioxide 25 mmol/L (22-29); Chloride 98 mmol/L (98-107); Globulin 3.3 g/dL (1.3-4.6); Glomerular Filtration Rate 45.2 mL/min (90-130); Glucose 305 mg/dL (65-115); Lipase 40 U/L (13-60); NT Pro B Type Natriuretic Pept 342 pg/mL (0-125); Osmolality Calculated 302 mOsm/kg (285-295); Potassium 4.4 mmol/L (3.5-5.1); Sodium 136 mmol/L (136-145); Total Bilirubin 0.2 mg/dL (0.15-1.2); Total Protein 7.5 g/dL (6.6-8.7)
[2022-09-18 21:12] VITALS: BP 133/69; PULSE 69; RESP 16; O2SAT 95
[2022-09-18 22:09] LABS: Troponin 5 2HR Delta -1 ABS# (0-10)
[2022-09-18 22:30] VITALS: BP 133/69; PULSE 69; RESP 16; TEMP 36.9; O2SAT 95
== END 2022-09-18 22:31 | disposition home or self-care (01) ==
PROVIDERS: Emergency Provider Emergency Medicine; PCP Family Medicine
DX: I48.0 Paroxysmal atrial fibrillation (principal); Z79.01 Long term (current) use of anticoagulants; Z79.4 Long term (current) use of insulin; Z85.038 Personal history of other malignant neoplasm of large intestine; Z86.73 Personal history of transient ischemic attack (TIA), and cerebral infarction without residual deficits; E11.9 Type 2 diabetes mellitus without complications; E78.5 Hyperlipidemia, unspecified; I10 Essential (primary) hypertension
CPT/HCPCS: 36415; 71045; 80053; 81001; 83690; 83880; 84484; 85025; 85610; 85730; 93005; 99285; J7030

== ENCOUNTER → 2022-09-23 10:34 | Outpatient (BNVA) | payer MEDICARE, MEDICAID, SELFPAY | PROVIDERS: PCP Family Medicine; Visit Provider Nurse Practitioner Family | DX: I48.0 Paroxysmal atrial fibrillation (principal); I10 Essential (primary) hypertension; Z79.01 Long term (current) use of anticoagulants | CPT/HCPCS: 99213 ==

== ENCOUNTER → 2022-10-19 08:17 | Outpatient (BNVA) | payer MEDICARE, MEDICAID, SELFPAY | PROVIDERS: PCP Family Medicine; Visit Provider Internal Medicine | DX: E11.65 Type 2 diabetes mellitus with hyperglycemia (principal); E11.40 Type 2 diabetes mellitus with diabetic neuropathy, unspecified; E78.2 Mixed hyperlipidemia; I10 Essential (primary) hypertension; E66.01 Morbid (severe) obesity due to excess calories; Z68.43 Body mass index [BMI] 50.0-59.9, adult; Z79.4 Long term (current) use of insulin; Z79.84 Long term (current) use of oral hypoglycemic drugs; Z86.73 Personal history of transient ischemic attack (TIA), and cerebral infarction without residual deficits | CPT/HCPCS: 99214 ==

== ENCOUNTER 2022-10-21 08:50 | Outpatient (CLI) | payer MEDICARE, MEDICAID, SELFPAY ==
--- NOTE | 2022-10-21 08:45 | USCV_ITS ---
PatrickEmma Age: 67 Gender: F : 1955 Exam Date: 10/21/2022 09:44 Ordering Phys: Shawn Allison MD ([email or web address]) Technologist: Marylu Ulloa [place]am Location[place] [facility] [place] Indication: HtN, SOB BP: 138 / 87 HR: 60 Rhythm: Sinus Technical Quality: Adequate MEASUREMENTS (Male / Female) Normal Values 2D ECHO LV Diastolic Diameter PLAX 4.1 cm 4.2 - 5.9 / 3.9 - 5.3 cm LV Systolic Diameter PLAX 2.7 cm IVS Diastolic Thickness 1.2 cm 0.6 - 1.0 / 0.6 - 0.9 cm IVS Systolic Thickness 1.6 cm LVPW Diastolic Thickness 1.3 cm 0.6 - 1.0 / 0.6 - 0.9 cm LVPW Systolic Thickness 1.4 cm LVOT Diameter 2.1 cm LV Ejection Fraction 2D Teich 62.3 % LV Ejection Fraction MOD 2C 73.8 % LV Ejection Fraction 2C AL 73.7 % LA Diameter 3.9 cm LA Width 4.4 cm LA Height 5.7 cm RA Width 2.9 cm RA Height 5.0 cm Aorta at Sinotubular Diameter 2.8 cm IVC Diameter 1.4 cm M-MODE Aortic Annulus Diameter 3.5 cm LA Ao Ratio MM 1.0 DOPPLER AV Peak Velocity 131.0 cm/s LVOT Peak Velocity 107.0 cm/s AV Area Cont Eq vti 3.5 cm squared AV Area Cont Eq pk 2.8 cm squared MV Peak Velocity 140.0 cm/s MV Area PHT 1.9 cm squared Mitral E to A Ratio 1.0 MV E' Velocity 135.0 cm/s TR Peak Velocity 115.8 cm/s TR Peak Gradient 5.4 mmHg Right Atrial Pressure 5.0 mmHg Pulmonary Artery Systolic Pressu 10.4 mmHg FINDINGS Left Ventricle Normal left ventricular cavity size. Normal left ventricular systolic function. Left ventricular ejection fraction is estimated at 65 %. No regional wall motion abnormalities. Abnormal septal motion. Right Ventricle Normal right ventricular size and systolic function. Right ventricular systolic pressure 10.4 mmHg. Right Atrium Normal right atrial size. Left Atrium Moderately increased left atrial size. Mitral Valve No mitral valve stenosis. No mitral valve regurgitation. Aortic Valve Aortic valve not well visualized. No aortic valve stenosis. No aortic valve regurgitation. Tricuspid Valve Structurally normal tricuspid valve. Trace tricuspid valve regurgitation. Pulmonic Valve Pulmonic valve not well visualized. Pericardium No pericardial effusion. Aorta Normal size aortic root and proximal ascending aorta. IVC Inferior vena cava not visualized. CONCLUSIONS 1. Normal left ventricular cavity size. Normal left ventricular systolic function. Left ventricular ejection fraction is estimated at 65 %. No regional wall motion abnormalities. Abnormal septal motion. 2. No significant valvular abnormality. 3. Moderately increased left atrial size. 4. No significant change when compared to study dated 07/01/2020. Arti Dowell MD (Electronically Signed) Final Date: 27 October 2022 12:14 S
[2022-10-21] MEDS: perflutren protein-a microsphr 0.22 mg/mL SDV 3 mL IV (10:35)
== END 2022-10-21 08:51 | disposition home or self-care (01) ==
LOC: RAD 08:54
PROVIDERS: PCP Family Medicine; Visit Provider Specialist
DX: I48.91 Unspecified atrial fibrillation (principal); R06.02 Shortness of breath; R07.9 Chest pain, unspecified; I10 Essential (primary) hypertension
CPT/HCPCS: C8924; Q9956

== ENCOUNTER → 2023-02-07 13:17 | Outpatient (BNVA) | payer MEDICARE, MEDICAID, SELFPAY | PROVIDERS: PCP Family Medicine; Visit Provider Family Medicine | DX: G47.10 Hypersomnia, unspecified (principal); E55.9 Vitamin D deficiency, unspecified; E78.5 Hyperlipidemia, unspecified; I10 Essential (primary) hypertension; Z51.81 Encounter for therapeutic drug level monitoring; E11.9 Type 2 diabetes mellitus without complications; Z13.220 Encounter for screening for lipoid disorders; E83.42 Hypomagnesemia | CPT/HCPCS: 80053; 80061; 82306; 83036; 83735; 85025 ==

== ENCOUNTER → 2023-09-14 10:42 | Outpatient (BNVA) | payer MEDICARE, SELFPAY | PROVIDERS: PCP Family Medicine; Visit Provider Family Medicine | DX: Z00.00 Encounter for general adult medical examination without abnormal findings (principal); E11.9 Type 2 diabetes mellitus without complications; E55.9 Vitamin D deficiency, unspecified; Z51.81 Encounter for therapeutic drug level monitoring; Z13.220 Encounter for screening for lipoid disorders; E53.8 Deficiency of other specified B group vitamins | CPT/HCPCS: 80053; 80061; 82306; 82607; 83036; 85025 ==

== ENCOUNTER 2023-09-21 14:02 | Outpatient (CLI) | payer MEDICARE, SELFPAY ==
--- NOTE | 2023-09-21 14:30 | MM_ITS ---
WS: [id number] BILATERAL 3D TOMOSYNTHESIS DIGITAL SCREENING MAMMOGRAPHY WITH CAD CLINICAL INFORMATION: Screening mammogram HISTORY: Screening mammogram. No current complaints. COMPARISON: None. TECHNIQUE: Bilateral CC and MLO views. FINDINGS: Scattered fibroglandular densities bilaterally. No suspicious focal mass, asymmetry, calcifications, or architectural distortion. No evidence of malignancy. Punctate and lucent centered calcifications. Vascular calcification. MM/[place] [id number] IMPRESSION: BI-RADS: 2-Benign FOLLOW UP: 1 Year Follow-up Recommend return to annual screening mammography.
== END 2023-09-21 14:03 | disposition home or self-care (01) ==
LOC: RAD 14:02
PROVIDERS: PCP Family Medicine; Visit Provider Family Medicine
DX: Z12.31 Encounter for screening mammogram for malignant neoplasm of breast (principal); R92.323 Mammographic fibroglandular density, bilateral breasts
CPT/HCPCS: 77063; 77067

== ENCOUNTER → 2024-08-28 12:09 | Outpatient (BNVA) | payer MEDICARE, SELFPAY | PROVIDERS: PCP Family Medicine; Visit Provider Internal Medicine Cardiovascular Disease | DX: I48.0 Paroxysmal atrial fibrillation (principal); Z79.01 Long term (current) use of anticoagulants; E11.9 Type 2 diabetes mellitus without complications; Z79.4 Long term (current) use of insulin; I10 Essential (primary) hypertension; E78.2 Mixed hyperlipidemia; R42 Dizziness and giddiness; R07.9 Chest pain, unspecified; Z87.891 Personal history of nicotine dependence | CPT/HCPCS: 93005; 99215 ==

== ENCOUNTER → 2024-11-20 10:29 | Outpatient (BNVA) | payer MEDICARE, SELFPAY | PROVIDERS: PCP Family Medicine; Visit Provider Family Medicine | DX: Z00.00 Encounter for general adult medical examination without abnormal findings (principal); E11.9 Type 2 diabetes mellitus without complications; Z13.6 Encounter for screening for cardiovascular disorders; E55.9 Vitamin D deficiency, unspecified; Z51.81 Encounter for therapeutic drug level monitoring | CPT/HCPCS: 80053; 80061; 82306; 83036; 85025 ==

== ENCOUNTER → 2024-11-28 13:36 | Outpatient (BNVA) | payer MEDICARE, SELFPAY | PROVIDERS: PCP Family Medicine; Visit Provider Physician Assistant | DX: M79.644 Pain in right finger(s) (principal); M65.331 Trigger finger, right middle finger | CPT/HCPCS: 73130; 99214 ==

== ENCOUNTER 2025-01-18 07:41 | Day surgery (SDC) | payer MEDICARE, SELFPAY ==
[2025-01-18] VITALS (8 sets, daily range): BP systolic 90–150; BP diastolic 41–95; PULSE 53–67; RESP 16–18; TEMP 36.2–37; O2SAT 95–98; BMI 53.6
--- NOTE | 2025-01-18 08:04 | W.PM.OPSFHP ---
Same Day Surgery H&P Indication for Procedure/HPI DATE OF PROCEDURE: January 18, 2025 CHIEF COMPLAINT/INDICATIONFOR SURGICAL PROCEDURE: Right middle finger trigger PREOP DIAGNOSIS: Right middle finger trigger PLANNED PROCEDURE: Operation Date: 01/18/25 09:30 Proposed Procedures p RIGHT Middle Finger Trigger Finger Release(Right) - Mariusz Durán DO Medications/Allergies* Home Medications ?Medication ?Instructions ?Recorded ?Confirmed ?Type diphenhydramine HCl 25 mg capsule 25 mg PO TID PRN Allergy Symptoms 08/27/21 01/17/25 History (Benadryl) magnesium 250 mg tablet 250 mg PO DAILY@21 12/25/21 01/17/25 History cholecalciferol (vitamin D3) 125 250 mcg PO BID 01/05/22 01/17/25 History mcg (5,000 unit) tablet (Vitamin D3) hydrochlorothiazide 12.5 mg capsule 12.5 mg PO DAILY Unobtainable 01/17/25 01/17/25 History sitagliptin phosphate 100 mg 100 mg PO DAILY No Known Home Meds 01/17/25 01/17/25 History tablet (Januvia) Allergies/Adverse Reactions Allergy/AdvReac Type Severity Reaction Status Date / Time acetaminophen (From Percocet) Allergy Unknown Verified 01/17/25 12:28 codeine Allergy ADR-Cramping Verified 01/17/25 12:28 of the Muscles Iodinated Contrast Media Allergy ADR-Blurry Verified 01/17/25 12:28 Vision morphine Allergy ADR-Confusi Verified 01/17/25 12:28 on oxycodone (From Percocet) Allergy Unknown Verified 01/17/25 12:28 lisinopril AdvReac Mild ADR-Cough Verified 01/17/25 12:28 Pertinent History/Comorbid Conditions* Medical History (Updated 11/28/24 @ 14:14 by TOMMIE Aponte) Trigger thumb, left thumb Hypomagnesemia Atrial fibrillation Morbid obesity with BMI of 50.0-59.9, adult Hypertension Hyperlipidemia Uncontrolled type 2 diabetes mellitus CVA (cerebral vascular accident) Colon cancer Diabetes mellitus Surgical History (Updated 12/19/19 @ 14:34 by Hansel Singh DO) H/O carpal tunnel repair Hx of cholecystectomy S/P colon resection Family History (Updated 04/09/20 @ 13:17 by Dagoberto Jose MD) Obesity Social History Smoking and tobacco/nicotine status: never used tobacco/nicotine Alcohol intake: current Alcohol intake frequency: holidays/special occasions only Substance/Drug Use: never Pertinent Exam Findings alert, oriented x 3, operative site marked and procedure specific exam findings Please refer to detailed orthopedic examination on 11/28/2024 listed below: NARRATIVE EXTREMITY EXAM: Right Hand exam-Negative Tinel's and positive Phalen's test. no thenar atrophy . Tenderness to palpation of base of thumb. Negative [facility] grind test. full range of motion in fingers and wrist and fingers are warm and well-perfused with normal cap refill under 2 seconds. Radial pulse 2+, A1 denise tenderness and mechanical locking and catching of the middle finger Recommendations Risks and benefits of procedure reviewed and Patient/family agree to proceed Surgery/Procedure today Other Plans: Plan to proceed to the OR today for right middle finger trigger release. Patient understands the ins and outs procedure risk benefits complications and alternatives of surgical nonsurgical treatment options. Understanding risk of surgery patient like to proceed with surgical intervention today all questions answered at this time. Coding Level of Care Code Acute Code for Annie Crocker
[2025-01-18] MEDS: acetaminophen 1,000 MG/100 ML PIGGYBACK 400 MG IV (08:24)
--- NOTE | 2025-01-18 08:35 | ANES.PREANE2 ---
Pre-Anesthetic Assessment Height/Weight: Height 5 ft 3 in Weight 303 lb Temp Pulse Resp BP Pulse Ox O2 Del Method 98.6 F 67 18 150/95 97 Room Air 01/18/25 08:15 01/18/25 08:15 01/18/25 08:15 01/18/25 08:15 01/18/25 08:15 01/18/25 08:15 Preop Diagnosis: Right middle finger trigger Operation Date: 01/18/25 09:30 Proposed Procedures p RIGHT Middle Finger Trigger Finger Release(Right) - Mariusz Leeanna, DO Was Beta Emanuel taken within 24 hours: N/A Was Clonidine taken within 24 hours: N/A Last intake: Intake Last Liquid Date 01/17/25 Last Liquid Time 22:00 Last Solid Date 01/17/25 Last Solid Time 17:30 Social No alcohol and No tobacco Exam alert, oriented x 3, clear to auscultation bilaterally and regular rate & rhythm Airway Submandibular: within normal limits Cervical ROM: within normal limits Mallampati: Class III Dentition: false Anesthetic Plan ASA status: 3 Anesthesia: MAC Other: No prior issues with anesthesia N.p.o. since yesterday evening History of IDDM. On chronic Ozempic. Last taken 01/12/2025. Preop BS 122 Hypertension on hydrochlorothiazide and diltiazem History of A-fib, on chronic Eliquis. Last taken 01/15/2025 Labs reviewed from 11/20/2024 and acceptable for procedure Echo 2022 showing EF of 65% EKG showing sinus rhythm with first-degree AV block Plan for [facility] Medications/Allergies Home Medications ?Medication ?Instructions ?Recorded ?Confirmed ?Last Taken ?Type diphenhydramine HCl 25 mg capsule 25 mg PO TID PRN Allergy Symptoms 08/27/21 01/18/25 3 Months Ago History (Benadryl) ~10/18/24 magnesium 250 mg tablet 250 mg PO DAILY@21 12/25/21 01/17/25 01/16/25 History cholecalciferol (vitamin D3) 125 250 mcg PO BID 01/05/22 01/18/25 01/15/25 History mcg (5,000 unit) tablet (Vitamin D3) blood-glucose sensor ([employer] G7 #1 ea 09/27/23 01/08/25 Unknown Rx Sensor device) blood-glucose,finance manager,cont #1 ea 09/27/23 01/08/25 Unknown Rx (Dexcom G7 Plate Hanger) flash glucose scanning reader #1 ea 11/30/23 01/08/25 Unknown Rx (FreeStyle Anisa 14 Day [place]) diltiazem HCl 240 mg 240 mg PO DAILY #90 caps 04/04/24 01/17/25 01/17/25 Rx capsule,extended release 24 hr pen needle, diabetic 31 gauge x #100 ea 04/09/24 01/08/25 Unknown Rx 5/16 (TechLITE Pen Needle) apixaban 5 mg tablet (Eliquis) 5 mg PO BID #180 tabs 10/11/24 01/17/25 01/15/25 Rx blood-glucose sensor (FreeStyle #2 ea 11/20/24 01/08/25 Unknown Rx Anisa 2 Plus Sensor device) ezetimibe 10 mg tablet (Zetia) 10 mg PO DAILY #30 tabs 11/20/24 01/18/25 1 Month Ago Rx ~12/18/24 flash glucose sensor (FreeStyle #2 ea 11/20/24 01/08/25 Unknown Rx Anisa 2 Sensor kit) flecainide 100 mg tablet 100 mg PO Q12H #60 tabs 11/20/24 01/17/25 01/17/25 Rx insulin glargine 100 unit/mL (3 50 unit (0.5 mL) SUBCUT DAILY #15 11/20/24 01/17/25 01/17/25 Rx mL) subcutaneous pen (Lantus mL Solostar U-100 Insulin) paroxetine HCl 40 mg tablet 40 mg PO DAILY@2100 #90 tabs 11/20/24 01/17/25 01/17/25 Rx semaglutide 0.25 mg or 0.5 mg (2 0.25 mg (0.368 mL) SUBCUT Q7D #3 mL 12/10/24 01/17/25 01/12/25 Rx mg/3 mL) subcutaneous pen injector (Ozempic) hydrochlorothiazide 12.5 mg capsule 12.5 mg PO DAILY Unobtainable 01/17/25 01/17/25 01/16/25 History sitagliptin phosphate 100 mg 100 mg PO DAILY No Known Home Meds 01/17/25 01/17/25 01/16/25 History tablet (Januvia) Allergies Allergy/AdvReac Type Severity Reaction Status Date / Time acetaminophen (From Percocet) Allergy Unknown Verified 01/17/25 12:28 codeine Allergy ADR-Cramping Verified 01/17/25 12:28 of the Muscles Iodinated Contrast Media Allergy ADR-Blurry Verified 01/17/25 12:28 Vision morphine Allergy ADR-Confusi Verified 01/17/25 12:28 on oxycodone (From Percocet) Allergy Unknown Verified 01/17/25 12:28 lisinopril AdvReac Mild ADR-Cough Verified 01/17/25 12:28 Current Medications Generic Name Dose Route Start Last Admin Trade Name Freq PRN Reason Stop Dose Admin Sodium Chloride 1,000 mls @ 30 mls/hr 01/18/25 08:00 01/18/25 08:24 Sodium Chloride 0.9% IV 01/19/25 07:59 30 mls/hr .Q24H MIS Administration PFSH Anesthesia Medical History (Updated 11/28/24 @ 14:14 by TOMMIE Aponte) Trigger thumb, left thumb Hypomagnesemia Atrial fibrillation Morbid obesity with BMI of 50.0-59.9, adult Hypertension Hyperlipidemia Uncontrolled type 2 diabetes mellitus CVA (cerebral vascular accident) Colon cancer Diabetes mellitus Surgical History H/O carpal tunnel repair Hx of cholecystectomy S/P colon resection Family History Other Obesity Social History Smoking and tobacco/nicotine status: never used tobacco/nicotine Alcohol intake: current Alcohol intake frequency: holidays/special occasions only Substance/Drug Use: never Female Reproductive History Spontaneous abortions: No Data Anesthesia Cardiac Studies: Echocardiogram 10/21/22 Echocardiogram Ultrasound 07/01/20 Sestamibi Stress Test (Cardiology) 09/17/22 Holter Monitor 01/10/20
[2025-01-18] MEDS: ceFAZolin 3,000 MG in sodium chloride 0.9% (plus) 100 ML 200 MG IV (09:18)
[2025-01-18] MEDS: ROPivacaine 0.5% SDV 30 mL 150 MG INJECTION (09:35)
--- NOTE | 2025-01-18 10:07 | W.PM.BPON ---
Date of Procedure: 01/18/2025 Surgeon: Mariusz Durán DO Hemodialysis Patient Care Specialist(s): None Procedure(s) performed: Right middle finger trigger release Findings of the procedure(s): Patient underwent procedure as planned without issues or complications, taken to recovery in stable condition Estimated blood loss: 3 mL Specimen(s) removed: None Post-operative diagnosis: Right middle finger trigger
--- NOTE | 2025-01-18 10:08 | PM.OP ---
Operative Report Date of procedure: January 18, 2025 Surgeon: Mariusz Durán DO Procedure: Preop Dx Right middle finger trigger Post-op diagnosis: Same Procedure done: Right?middle?finger?trigger?release Surgeon: Mariusz Durán DO Estimated blood loss: 3cc Tourniquet time 7mins Complications: None Condition: stable Disposition: same day Brief History: Patient's been seen and worked up in the outpatient setting and findings consistent with preoperative diagnosis of right?middle?finger?trigger.? Pt is failed conservative treatment.? Continues to have mechanical locking and catching.? Severe pain as well.? We talked about treatment options nonoperative versus operative intervention.? ?Patient understands the risk benefits complication alternatives of surgical nonsurgical treatment options.? Understanding pt risks with surgery pt elects proceed with surgical intervention.? Consent obtained in the preop.? Here today to proceed with surgical intervention for right middle finger trigger release.? All questions answered. Procedure: Patient was seen and evaluated in the preoperative holding area.? Consent was reviewed and signed with patient.? Seen evaluated by Anesthesia Department.? Once cleared for surgery was brought back to the operative suite.? Placed in supine position on the OR table all bony prominences well-padded patient properly secured to the bed.? Patient's right arm was then placed to the armboard.? A nonsterile tourniquet applied to the right upper arm.? Patient's right upper extremity was then prepped and draped in standard orthopedic fashion.? Final timeout performed.? Patient received appropriate preoperative antibiotics. Esmarch tourniquet was used exsanguinate the right upper extremity tourniquet insufflated to 250 mmHg. Under sterile aseptic technique local digital block was performed to the right?middle?finger.? Once appropriately anesthetized a standard oblique incision was made centering over the A1 denise following patient's flexor crease.? Sharp scalpel incision was made only through skin and then switched to Littler dissection scissors and spread longitudinally directly over the flexor tendon sheath.? I then mobilized both radially and ulnarly and Kasdan retractors were used and placed by my sociology research assistant to protect neurovascular bundle.? Next I visualized the A1 denise and this was incised with a scalpel.? I then switched to dissection scissors and released the A1 denise both proximally as well as distally to its entirety.? Significant tendon sheath fluid was noted consistent with inflammation.? Mild fraying of the flexor tendons noted but no tear.? At this point I utilized a rag nail and pulled the tendons FDS and FDP out of the incision and no?triggering was noted.? I then had anesthesia wake up the patient and patient was able to actively flex and extend with no?triggering.? This point thorough irrigation was performed.? Tourniquet deflated hemostasis satisfactory with bipolar.? I then subsequently closed the incision with interrupted nylon suture.? Xeroform 4 x 4's, Kerlix and an Luiz wrap was applied for a bulky soft dressing.? Patient was then subsequently awakened from anesthesia and taken to PACU in stable condition tolerated procedure without issues. Disposition: Patient taken back in stable condition recovering well.? Patient will receive appropriate discharge instruction as well as pain medication postoperatively.? Patient to follow-up with me in the office in 2 weeks for repeat evaluation and incision check.? Patient understands that any questions or concerns and contact the office.? All questions answered.
[2025-01-18] MEDS: ceFAZolin 2,000 MG in sodium chloride 0.9% (plus) 50 ML 100 MG IV (10:34)
--- NOTE | 2025-01-18 11:46 | ANE.PACU2 ---
Inpatient post-anesthesia follow up: Airway intact: Yes Vital signs: Temperature 97.2 F Pulse Rate 53 Respiratory Rate 18 Blood Pressure 118/70 Pulse Oximetry 98 Oxygen Delivery Me thod Room Air Oxygen Flow Rate Fraction of Inspir ed Oxygen Hydration adequate: Yes Nausea and vomiting: No Pain level: 1 Mental status: Baseline
== END 2025-01-18 10:59 | disposition home or self-care (01) ==
PROVIDERS: PCP Family Medicine; Visit Provider Student in an Organized Health Care Education/Training Program
PROC: (CPT 26055; principal; 2025-01-18 09:20)
DX: M65.331 Trigger finger, right middle finger (principal); I10 Essential (primary) hypertension; E78.5 Hyperlipidemia, unspecified; E11.9 Type 2 diabetes mellitus without complications; Z86.73 Personal history of transient ischemic attack (TIA), and cerebral infarction without residual deficits; Z85.038 Personal history of other malignant neoplasm of large intestine; I48.91 Unspecified atrial fibrillation; E66.01 Morbid (severe) obesity due to excess calories; Z68.43 Body mass index [BMI] 50.0-59.9, adult; Z79.4 Long term (current) use of insulin; Z79.01 Long term (current) use of anticoagulants
CPT/HCPCS: 26055; 36416; 82962; J0131; J0690; J1885; J2250; J2704; J2795; J3010; J7030; J9999

== ENCOUNTER 2025-01-21 11:46 | Emergency (ER) | payer MEDICARE, SELFPAY ==
--- NOTE | 2025-01-21 11:52 | XR_ITS ---
WS: [id number] Portable AP upright chest, 01/21/2025 Clinical Data: chest pain Comparison: Portable chest, 09/18/2022 Findings: No nodules, masses or effusions are seen. The heart is normal. The pulmonary vascularity is not increased. No pneumonia or pneumothorax is seen. The aortic arch and descending thoracic aorta show mild calcification and tortuosity. XR/XR chest 1V portable [id number] Impression: Atherosclerosis.
--- OUTSIDE RECORDS SUMMARY | 2025-01-21 11:52 | XMS_ITS | Clinical Summary ---
Author Organization [facility] Address [address] [place]: Epic Prelude ADT [place] [address] Care Team Providers Care Insecticide Expert Name Role Phone Unavailable Primary Care Provider Unavailabl e Allergies Active Allergy Reactions Criticality Noted Date Comments Dye Other (See Comments) 03/25/2015 Blurred vision Morphine Delirium Medium 03/25/2015 Medications mupirocin calcium (BACTROBAN) 2 % Cream Apply to affected area 2 times daily. 03/25/2015 Active nystatin (MYCOSTATIN) 100,000 unit/gram Cream Apply to affected area 2 times daily. 03/25/2015 Active PARoxetine HCl (PAXIL) 40 mg tablet Take 40 mg by mouth daily. 03/25/2015 Active metFORMIN (GLUCOPHAGE) 500 mg tablet Take 500 mg by mouth 2 times daily with meals. 03/25/2015 Active cholecalciferol , Vitamin D3, 125 mcg (5,000 unit) Capsule Take 5,000 Units by mouth daily. 03/25/2015 Active Social History Tobacco Use Types Packs/Day Years Used Date Smoking Tobacco: Never Smokeless Tobacco: Never Alcohol Use Standard Drinks/Week Comments No 0 (1 standard drink = 0.6 oz pur e alcohol) Comments Unknown Sex and Gender Information Value Date Recorded Sex Assigned at Not on file Legal Sex Female 2:58 PM CHARTERED ACCOUNTANT Gender Identity Not on file Sexual Orientation Not on file Last Filed Vital Signs Vital Sign Reading Time Taken Comments Blood Pressure 140/100 03/25/2015 11:38 AM CHARTERED ACCOUNTANT Pulse 82 03/25/2015 11:38 AM CHARTERED ACCOUNTANT Temperature 37.2 C (99 F) 03/25/2015 11:38 AM CHARTERED ACCOUNTANT Respiratory Rate 16 03/25/2015 11:38 AM CHARTERED ACCOUNTANT Oxygen Saturation - - Inhaled Oxygen Concentration - - Weight 128.4 kg (283 lb) 03/25/2015 11:38 AM CHARTERED ACCOUNTANT Height 160 cm (5' 3 ) 03/25/2015 11:38 AM CHARTERED ACCOUNTANT Body Mass Index 50.13 03/25/2015 11:38 AM CHARTERED ACCOUNTANT Plan of Treatment Health Maintenance Due Date Last Done Comments DTAP/TDAP/TD VACCINES (1 - Tdap) 1976 BREAST CANCER SCREENING 1997 COLORECTAL SCREENING 2002 Colorectal Cancer Screening 2002 FIT-DNA Q 3 years 2002 FIT/FOBT Q 1 year 2002 Flex Sig/CT Colonography Q 5 years 2002 PNEUMOCOCCAL VACCINE 50+ YEARS (1 of 1 - PCV) 09/26/19 08 ZOSTER VACCINE (1 of 2) 09/26/2007 OSTEOPOROSIS SCREENING 2022 INFLUENZA VACCINE (#1) 2024 RSV VACCINE (60+ or ) (1 - 1-dose 75+ series) 2032 Insurance
--- OUTSIDE RECORDS SUMMARY | 2025-01-21 11:52 | XMS_ITS | Encounter Summary ---
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
--- OUTSIDE RECORDS SUMMARY | 2025-01-21 11:52 | XMS_ITS | Clinical Summary ---
Author Organization [facility] Address [address] [place] [address] Care Team Providers Care Mat Cleaning Machine Operator Name Role Phone Unavailable Primary Care Provider Unavailabl e Allergies Active Allergy Reactions Criticality Noted Date Comments Dye Other (See Comments) 03/25/2015 Blurred vision Morphine Delirium Medium 03/25/2015 Medications PARoxetine HCl (PAXIL) 40 mg tablet Take 40 mg by mouth daily. Active cholecalciferol , Vitamin D3, 5,000 unit Capsule Take 5,000 Units by mouth daily. Active metFORMIN (GLUCOPHAGE) 500 mg tablet Take 500 mg by mouth 2 times daily with meals. Active nystatin (MYCOSTATIN) 100,000 unit/gram Cream Apply to affected area 2 times daily. Active mupirocin calcium (BACTROBAN) 2 % Cream Apply to affected area 2 times daily. Active Active Problems No known active problems Social History Tobacco Use Types Packs/Day Years Used Date Smoking Tobacco: Never Smokeless Tobacco: Never Alcohol Use Standard Drinks/Week Comments No 0 (1 standard drink = 0.6 oz pur e alcohol) Comments No Sex and Gender Information Value Date Recorded Sex Assigned at Not on file Legal Sex Female 5:02 AM STUDENT UNION CONSULTANT Gender Identity Not on file Sexual Orientation Not on file Last Filed Vital Signs Vital Sign Reading Time Taken Comments Blood Pressure 140/100 03/25/2015 11:38 AM STUDENT UNION CONSULTANT Pulse 82 03/25/2015 11:38 AM STUDENT UNION CONSULTANT Temperature 37.2 C (99 F) 03/25/2015 11:38 AM STUDENT UNION CONSULTANT Respiratory Rate 16 03/25/2015 11:38 AM STUDENT UNION CONSULTANT Oxygen Saturation 97% 03/25/2015 11:38 AM STUDENT UNION CONSULTANT Inhaled Oxygen Concentration - - Weight 128.4 kg (283 lb) 03/25/2015 11:38 AM STUDENT UNION CONSULTANT Height 160 cm (5' 3 ) 03/25/2015 11:38 AM STUDENT UNION CONSULTANT Body Mass Index 50.13 03/25/2015 11:38 AM STUDENT UNION CONSULTANT Plan of Treatment Health Maintenance Due Date [...] (1 - 1-dose 75+ series) 2032 Insurance DISABILITY DETERMINATION
--- OUTSIDE RECORDS SUMMARY | 2025-01-21 11:52 | XMS_ITS | Encounter Summary ---
Author [facility] Address [address] [place] [address] Care Team Providers Care Transportation Equipment Painter Name Role Phone Unavailable Primary Care Provider Unavailabl e Encounter Details Date Type Department Care Team (Latest Contact Info) Description 08/22/1998 Outpatient Historical [facility] Ela Duron MD [address] [place] [address] Abdominal pain, unspecified site (Primary Dx); Need for prophylactic vaccination with tetanus-diphtheria (Td) Social History Tobacco Use Types Packs/Day Years Used Date Smoking Tobacco: Never Assessed Comments Unknown Sex and Gender Information Value Date Recorded Sex Assigned at Not on file 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
--- OUTSIDE RECORDS SUMMARY | 2025-01-21 11:52 | XMS_ITS | Encounter Summary ---
Author Organization [facility] Address [address] [place] [address] Care Team Providers Care R And D Lab Technician Name Role Phone Unavailable Primary Care Provider Unavailabl e Encounter Details Date Type Department Care Team (Latest Contact Info) Description 08/25/1998 Outpatient Historical [facility] Ela Duron MD [address] [place] [address] Abdominal pain, unspecified site (Primary Dx) Social History Tobacco Use Types Packs/Day Years Used Date Smoking Tobacco: Never Assessed Comments Unknown Sex and Gender Information Value Date Recorded Sex Assigned at Not on file 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
[2025-01-21 12:01] VITALS: BP 135/77; PULSE 81; TEMP 36.9; O2SAT 96
--- NOTE | 2025-01-21 12:05 | ECG_ITS ---
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 Measurements Intervals [place] Rate: 75 P: 56 TX: 278 QRS: 256 QRSD: 139 T: 15 QT: 399 QTc: 447 Interpretive Statements SINUS RHYTHM WITH SINUS ARRHYTHMIA WITH FIRST DEGREE AV BLOCK RIGHT AXIS DEVIATION [QRS AXIS > 100] RIGHT BUNDLE BRANCH BLOCK [120+ ms QRS DURATION, UPRIGHT V1, 40+ ms S IN I/aVL/V4/V5/V6] POSSIBLE ANTERIOR MYOCARDIAL INFARCTION , PROBABLY OLD [30 ms Q WAVE IN V3/V4, OR R < 0.2 mV IN V4] Compared to ECG 08/28/2024 12:17:07 No significant change Electronically Signed On 01-23-2025 20:20:38 CDT by Javier Magallon M.D. [email or web address]
[2025-01-21 13:37] LABS: Hematocrit 44.3 % (36-47); Hemoglobin 14.60 g/dL (11.27-16.99); Mean Corpuscular HGB Conc 33.0 g/dL (30-55); Mean Corpuscular Hemoglobin 30.4 pg (27-33); Mean Corpuscular Volume 92.1 fl (85-98); Nucleated Red Blood Cells % 0 %; Platelet Count 298 10^3/cmm (157-399); Red Blood Count 4.81 10^6/uL (3.85-5.65); White Blood Count 6.36 10^3/uL (3.29-11.43)
[2025-01-21 13:45] VITALS: BP 123/71; PULSE 84; O2SAT 97
--- NOTE | 2025-01-21 13:52 | ECG_ITS ---
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 Measurements Intervals [place] Rate: 79 P: 253 [place]: 295 QRS: 247 QRSD: 150 T: 17 QT: 410 QTc: 472 Interpretive Statements SINUS RHYTHM WITH MARKED SINUS ARRHYTHMIA WITH FIRST DEGREE AV BLOCK RIGHT AXIS DEVIATION [QRS AXIS > 100] RIGHT BUNDLE BRANCH BLOCK [120+ ms QRS DURATION, UPRIGHT V1, 40+ ms S IN I/aVL/V4/V5/V6] POSSIBLE ANTERIOR MYOCARDIAL INFARCTION , OF INDETERMINATE AGE [30 ms Q WAVE IN V3/V4, OR R < 0.2 mV IN V4] Compared to ECG 01/21/2025 12:05:02 No significant changes Electronically Signed On 01-23-2025 22:55:33 CDT by Javier Magallon M.D. [id number]
--- NOTE | 2025-01-21 13:53 | W.ED.CHESTPA ---
HPI - Chest Pain General: Chief Complaint: Chest Pain Stated Complaint: CP, sweating, SOB Time Seen by Provider: 01/21/25 12:10 History of Present Illness: 69-year-old female presents emergency room complaint of intermittent chest pain that began yesterday. She does get some shortness of breath with it. She has a history of atrial fibrillation. She is on oral anticoagulants. She has history of diabetes mellitus and a previous stroke as well. Blood pressure is elevated last night. This morning issues leaving after having her blood drawn at another another facility she had sharp spasmodic like pain she felt like being stabbed lasted for a few seconds and then resolved she has not had any recurrence since then. She felt slightly short of breath when she had it has not had any further episodes is not short of breath now. Has not had any rapid heart rates or palpitations. Associated symptoms: Deny abdominal pain, dyspnea or fever(s) Related Data Home Medications ?Medication ?Instructions ?Recorded ?Confirmed diphenhydramine HCl 25 mg capsule 25 mg PO TID PRN Allergy Symptoms 08/27/21 01/18/25 (Benadryl) magnesium 250 mg tablet 250 mg PO DAILY@21 12/25/21 01/17/25 cholecalciferol (vitamin D3) 125 250 mcg PO BID 01/05/22 01/18/25 mcg (5,000 unit) tablet (Vitamin D3) hydrochlorothiazide 12.5 mg capsule 12.5 mg PO DAILY Unobtainable 01/17/25 01/17/25 sitagliptin phosphate 100 mg 100 mg PO DAILY No Known Home Meds 01/17/25 01/17/25 tablet (Januvia) Previous Rx's ?Medication ?Instructions ?Recorded blood-glucose sensor (Dexcom G7 #1 ea 09/27/23 Sensor device) blood-glucose,automotive design drafter,cont #1 ea 09/27/23 (Dexcom G7 Healthcare Administrative Assistant) flash glucose scanning reader #1 ea 11/30/23 (FreeStyle Anisa 14 Day [place]) diltiazem HCl 240 mg 240 mg PO DAILY #90 caps 04/04/24 capsule,extended release 24 hr pen needle, diabetic 31 gauge x #100 ea 04/09/24 5/16 (TechLITE Pen Needle) apixaban 5 mg tablet (Eliquis) 5 mg PO BID #180 tabs 10/11/24 blood-glucose sensor (FreeStyle #2 ea 11/20/24 Anisa 2 Plus Sensor device) ezetimibe 10 mg tablet (Zetia) 10 mg PO DAILY #30 tabs 11/20/24 flash glucose sensor (FreeStyle #2 ea 11/20/24 Anisa 2 Sensor kit) flecainide 100 mg tablet 100 mg PO Q12H #60 tabs 11/20/24 insulin glargine 100 unit/mL (3 50 unit (0.5 mL) SUBCUT DAILY #15 11/20/24 mL) subcutaneous pen (Lantus mL Solostar U-100 Insulin) paroxetine HCl 40 mg tablet 40 mg PO DAILY@2100 #90 tabs 11/20/24 semaglutide 0.25 mg or 0.5 mg (2 0.25 mg (0.368 mL) SUBCUT Q7D #3 mL 12/10/24 mg/3 mL) subcutaneous pen injector (Ozempic) tramadol 50 mg tablet 50 mg PO Q6H PRN pain 5 days #20 01/18/25 tabs aspirin 81 mg tablet,delayed 81 mg PO DAILY #30 tabs 01/21/25 release Allergies Allergy/AdvReac Type Severity Reaction Status Date / Time acetaminophen (From Percocet) Allergy Unknown Verified 01/21/25 12:09 codeine Allergy ADR-Cramping Verified 01/21/25 12:09 of the Muscles Iodinated Contrast Media Allergy ADR-Blurry Verified 01/21/25 12:09 Vision morphine Allergy ADR-Confusi Verified 01/21/25 12:09 on oxycodone (From Percocet) Allergy Unknown Verified 01/21/25 12:09 lisinopril AdvReac Mild ADR-Cough Verified 01/21/25 12:09 Review of Systems Const: Denies: fever(s) or chills Card: Denies: chest pain Resp: Denies: dyspnea GI: Denies: abdominal pain : Denies: dysuria, urinary frequency or urinary urgency Musc: Denies: neck pain or back pain Skin/Breast: Denies: rash PFSH ED PFSH: Medical History Trigger thumb, left thumb Hypomagnesemia Atrial fibrillation Morbid obesity with BMI of 50.0-59.9, adult Hypertension Hyperlipidemia Uncontrolled type 2 diabetes mellitus CVA (cerebral vascular accident) Colon cancer Diabetes mellitus Surgical History H/O carpal tunnel repair Hx of cholecystectomy S/P colon resection Family History Other Obesity Social History Smoking and tobacco/nicotine status: never used tobacco/nicotine Alcohol intake: current Alcohol intake frequency: holidays/special occasions only Substance/Drug Use: never Female Reproductive History: Spontaneous abortions: No Physical Exam Const: COMMON NORMALS: no acute distress GENERAL APPEARANCE: cooperative and comfortable ORIENTATION/CONSCIOUSNESS: Yes awake, Yes oriented to person, Yes oriented to place and Yes oriented to time HENMT: COMMON NORMALS: normocephalic, atraumatic and hearing grossly normal bilaterally HEAD & SCALP: normocephalic and atraumatic Resp: COMMON NORMALS: normal respiratory effort, No retractions, No use of accessory muscles and clear to auscultation bilaterally AUSCULTATION: clear to auscultation bilaterally Cardio: COMMON NORMALS: regular rate, regular rhythm and No murmurs present (Cardio) RATE: regular rate RHYTHM: regular rhythm GI: COMMON NORMALS: Soft to palpation and No hepatosplenomegaly present AUSCULTATION: Yes normoactive bowel sounds PALPATION: Yes Soft to palpation, No Tenderness to palpation present (GI), No Guarding due to palpation present (GI) and Yes No hepatosplenomegaly present Extremity: COMMON NORMALS: normal to inspection, capillary refill normal, no clubbing, cyanosis or edema, no calf tenderness and no pedal edema Neuro: SENSORIUM/ORIENTATION: Yes oriented to person, Yes oriented to place and Yes oriented to time Skin: COMMON NORMALS: no rashes or lesions noted GENERAL SKIN EXAM: no rashes or lesions noted Course Vital Signs: Vital signs: Vital Signs Temperature 98.4 F 01/21/25 12:01 Pulse Rate 71 01/21/25 16:55 Blood Pressure 131/79 01/21/25 16:55 Pulse Oximetry 98 01/21/25 16:55 Oxygen Delivery Me thod Room Air 01/21/25 16:12 MDM - Chest Pain Medical Decision Making Patient have no further symptoms. Symptoms patient to cry described in history very atypical. EKG cardiac enzymes negative. Reviewed findings with patient patient comfortable with plan. Will discharge home set up outpatient Lexiscan sestamibi stress test aspirin daily continue current medications. Medical Records I reviewed the patient's medical records. Lab Data I reviewed the patient's lab results. 01/21/25 13:13 01/21/25 13:13 Radiology Impressions Chest X-Ray 01/21/25 11:52 Impression: Atherosclerosis. Laboratory Results WBC 6.36 10^3/uL (3.29-11.43) 01/21/25 13:13 RBC 4.81 10^6/uL (3.85-5.65) 01/21/25 13:13 Hgb 14.60 g/dL (11.27-16.99) 01/21/25 13:13 Hct 44.3 % (36-47) 01/21/25 13:13 MCV 92.1 fl (85-98) 01/21/25 13:13 MCH 30.4 pg (27-33) 01/21/25 13:13 MCHC 33.0 g/dL (30-55) 01/21/25 13:13 RDW 12.2 % (12.1-15.1) 01/21/25 13:13 Plt Count 298 10^3/cmm (157-399) 01/21/25 13:13 MPV 10.2 fL (7.4-10.4) 01/21/25 13:13 Neut % (Auto) 64.0 % 01/21/25 13:13 Lymph % (Auto) 23.0 % 01/21/25 13:13 [place] % (Auto) 9.3 % 01/21/25 13:13 Eos % (Auto) 2.8 % 01/21/25 13:13 Baso % (Auto) 0.6 % 01/21/25 13:13 Neut # (Auto) 4.07 10^3/uL (1.8-7.7) 01/21/25 13:13 Lymph # (Auto) 1.5 10^3/uL (0.8-4.8) 01/21/25 13:13 [place] # (Auto) 0.6 10^3/uL (0.2-0.9) 01/21/25 13:13 Eos # (Auto) 0.2 10^3/uL (0.0-0.8) 01/21/25 13:13 Baso # (Auto) 0.0 10^3/uL (0.0-0.1) 01/21/25 13:13 Nucleated RBC % (auto) 0 % 01/21/25 13:13 Nucleated RBCs # 0.0 /100WBC 01/21/25 13:13 Sodium 137 mmol/L (136-145) 01/21/25 13:13 Potassium 4.8 mmol/L (3.5-5.1) 01/21/25 13:13 Chloride 100 mmol/L (98-107) 01/21/25 13:13 Carbon Dioxide 27 mmol/L (22-29) 01/21/25 13:13 Anion Gap 14.8 (5-19) 01/21/25 13:13 BUN 21 mg/dL (8-23) 01/21/25 13:13 Creatinine 1.0 mg/dL (0.5-0.9) H 01/21/25 13:13 GFR Calculation 55.3 mL/min (90-130) L 01/21/25 13:13 Glucose 152 mg/dL (65-115) H 01/21/25 13:13 Calculated Osmolality 290 mOsm/kg (285-295) 01/21/25 13:13 Calcium 9.5 mg/dL (8.5-10.5) 01/21/25 13:13 Total Bilirubin 0.4 mg/dL (0.15-1.2) 01/21/25 13:13 AST 23 U/L (0-32) 01/21/25 13:13 ALT 21 U/L (0-33) 01/21/25 13:13 Alkaline Phosphatase 75 U/L (35-105) 01/21/25 13:13 Troponin T Baseline 12 ng/L (0-10) H 01/21/25 13:13 Troponin T 120 Minute 12.10 ng/L (0-10) H 01/21/25 15:33 Delta Troponin T 0.10 ABS# (0-10) 01/21/25 15:33 Total Protein 6.8 g/dL (6.6-8.7) 01/21/25 13:13 Albumin 3.9 g/dL (3.5-5.2) 01/21/25 13:13 Globulin 2.9 g/dL (1.3-4.6) 01/21/25 13:13 All radiology interpretation(s) finalized by discharge EKG Data EKG 1: Interpretation: EKG 01/21/2025 1205 sinus rhythm with first-degree AV block rate of 75 NJ interval 278 QTc 447. Right bundle branch block. Q waves in V3 and 4. Compared EKG 08/28/2024 Q waves present in the 1 2 and 3 not present in previous EKG EKG 2: Interpretation: EKG sinus arrhythmia first-degree AV block. Right bundle branch block rate of 79 NJ interval 295 QTc 472 compared to EKG done same day earlier no changes. Discharge Plan Discharge Patient Disposition: Home Clinical Impression: Atypical chest pain Hypertension Qualifiers: Hypertension type: essential hypertension Qualified Code(s): I10 - Essential (primary) hypertension Diabetes mellitus Qualifiers: Diabetes mellitus type: type 2 Diabetes mellitus [facility] insulin use: without [facility] use Diabetes mellitus complication status: without complication Qualified Code(s): E11.9 - Type 2 diabetes mellitus without complications Condition: Stable Prescriptions: New aspirin 81 mg tablet,delayed release (DR/EC) 81 mg PO DAILY Qty: 30 0RF No Action diphenhydramine HCl [Benadryl] 25 mg capsule 25 mg PO TID PRN (Reason: Allergy Symptoms) (DME) FreeStyle Anisa 2 Plus Sensor Device See Rx Instructions .Route Qty: 2 6RF Rx Instructions: As directed (DME) FreeStyle Anisa 2 Sensor Kit See Rx Instructions .ROUTE .COMPLEX Qty: 2 6RF Dose Instruction: As directed Rx Instructions: As directed flecainide 100 mg tablet 100 mg PO Q12H Qty: 60 6RF ezetimibe [Zetia] 10 mg tablet 10 mg PO DAILY Qty: 30 6RF paroxetine HCl 40 mg tablet 40 mg PO DAILY@2100 Qty: 90 3RF insulin glargine [Lantus Solostar U-100 Insulin] 100 unit/mL (3 mL) insulin pen 50 unit SUBCUT DAILY Qty: 15 6RF (DME) Dexcom G7 Healthcare Administrative Assistant Misc See Rx Instructions .Route Qty: 1 0RF Rx Instructions: As directed (DME) Dexcom G7 Sensor Device See Rx Instructions .Route Qty: 1 6RF Rx Instructions: As directed (DME) FreeStyle Anisa 14 Day [place] Misc See Rx Instructions .Route Qty: 1 0RF Rx Instructions: As directed diltiazem HCl 240 mg capsule,extended release 24hr 240 mg PO DAILY Qty: 90 3RF (DME) pen needle, diabetic [TechLITE Pen Needle] 31 gauge x 5/16 needle See Rx Instructions .ROUTE .MEDSUPPLY Qty: 100 6RF Rx Instructions: As directed Eliquis 5 mg tablet 5 mg PO BID Qty: 180 3RF Ozempic 0.25 mg or 0.5 mg (2 mg/3 mL) pen injector 0.25 mg SUBCUT Q7D Qty: 3 3RF cholecalciferol (vitamin D3) [Vitamin D3] 125 mcg (5,000 unit) tablet 250 mcg PO BID magnesium 250 mg Tablet 250 mg PO DAILY@21 hydrochlorothiazide 12.5 mg capsule 12.5 mg PO DAILY Rx Instructions: TAKE 2 CAPSULES BY MOUTH DAILY Januvia 100 mg tablet 100 mg PO DAILY Rx Instructions: TAKE 1 TABLET BY MOUTH DAILY AT 9:00 EVERY EVENING tramadol 50 mg tablet 50 mg PO Q6H PRN (Reason: pain) 5 Days Qty: 20 0RF Discharge Orders: Discharge ED (Routine); Ordered 01/21/25 Ordered By: Hansel Singh Referrals: Salo Valladares MD [Primary Care Provider, Family Practice] Discharge Diet: Usual diet Discharge Activity: Limit activity as instructed Patient Instructions: Opioid Safety, Pain Management, Patient Portal & Mehdi Instructions Activity Restrictions/Additional Instructions: Thank you for choosing [facility] for your healthcare needs today. It is very important that you follow up as instructed or that you return to the Emergency Department should you have concerns or if your condition changes or worsens in any way. Emergency department visits are focused on emergent conditions, in some cases you may require further evaluation on an outpatient basis. You were seen in the emergency room for brief episodes of spasmodic like chest pain along with elevated blood pressure cardiac enzymes and EKG were normal. (Please note that included in your discharge packet is information concerning opioid safety and pain management. This information is given to all patients were discharged from the ER regardless of their discharge diagnosis or the medicines they usually take or are prescribed.) Print Language: Mohawk Coding Level of Care Code ED [place] for Annie Crocker
[2025-01-21 14:00] LABS: Alanine Aminotransferase 21 U/L (0-33); Albumin Level 3.9 g/dL (3.5-5.2); Alkaline Phosphatase 75 U/L (35-105); Anion Gap 14.8 (5-19); Aspartate Amino Transferase 23 U/L (0-32); Blood Urea Nitrogen 21 mg/dL (8-23); Calcium 9.5 mg/dL (8.5-10.5); Carbon Dioxide 27 mmol/L (22-29); Chloride 100 mmol/L (98-107); Creatinine Clr Calc Pharmacy 74.1604; Globulin 2.9 g/dL (1.3-4.6); Glucose 152 mg/dL (65-115); Osmolality Calculated 290 mOsm/kg (285-295); Potassium 4.8 mmol/L (3.5-5.1); Sodium 137 mmol/L (136-145); Total Protein 6.8 g/dL (6.6-8.7)
[2025-01-21 14:04] LABS: Troponin(5th) Baseline 12 ng/L (0-10)
[2025-01-21 16:12] VITALS: BP 132/82; PULSE 68; O2SAT 98
[2025-01-21 16:23] LABS: Troponin 5 2HR 12.10 ng/L (0-10); Troponin 5 2HR Delta 0.10 ABS# (0-10)
[2025-01-21 16:55] VITALS: BP 131/79; PULSE 71; O2SAT 98
--- NOTE | 2025-01-23 08:55 | DCPLANNER ---
faxed outpatient luis to scheduling
== END 2025-01-21 16:56 | disposition home or self-care (01) ==
PROVIDERS: Physician Assistant; Emergency Provider Family Medicine; PCP Family Medicine
DX: R07.89 Other chest pain (principal); I10 Essential (primary) hypertension; E11.9 Type 2 diabetes mellitus without complications; Z79.4 Long term (current) use of insulin; E78.5 Hyperlipidemia, unspecified; Z86.73 Personal history of transient ischemic attack (TIA), and cerebral infarction without residual deficits; Z85.038 Personal history of other malignant neoplasm of large intestine
CPT/HCPCS: 36415; 71045; 80053; 84484; 85025; 93005; 99285

== ENCOUNTER → 2025-02-01 10:16 | Outpatient (BNVA) | payer MEDICARE, SELFPAY | PROVIDERS: PCP Family Medicine; Visit Provider Physician Assistant | DX: M65.332 Trigger finger, left middle finger (principal); Z98.890 Other specified postprocedural states | CPT/HCPCS: 99214 ==

== ENCOUNTER 2025-02-04 08:43 | Outpatient (CLI) | payer MEDICARE, SELFPAY ==
--- NOTE | 2025-02-04 | ECG_ITS ---
[employer] Test Date: 2025-02-04 Pat Name: Emma Nguyen Department: Room: Gender: Female Assisted Living Executive Director: : 1955 Requested By: Hansel Pantoja Order Number: [id number] Kai MD: RUSS ARMSTRONG Interpretive Statements Lung unchanged pre/post procedure; Intraprocedure shortess of breath; Symptoms resoled by discharge NOTE: Please note that this is the electrocardiogram portion of the Lexiscan/Sestamibi stress test. The perfusion scan will be documented separately. DATA: Baseline heart rate was 67 beats per minute. Baseline blood pressure was 159/73 millimeters of mercury. Target heart rate was 153. Maximum heart rate achieved was 89. which was 58% of the predicted target heart rate. Maximum blood pressure was 159/77 millimeters of mercury. The reason for ending the test was [completion of the protocol]. The patient did not experience any symptoms. [] ELECTROCARDIOGRAM: BASELINE: Sinus rhythm. With first-degree AV block, incomplete right bundle branch block EXERCISE: After Lexiscan injection, no significant ST-T changes suggestive of ischemic noted. No arrhythmia noted. CONCLUSION: Please note due to baseline abnormality of the EKG specificity and sensitivity of the EKG portion of LexiScan MIBI stress test will be low 1. [EKG not suggestive of ischemia] 2. [Lexiscan injection unremarkable]. 3. Perfusion scan will be documented separately. Electronically Signed On 02-24-2025 21:27:04 CDT by RUSS ARMSTRONG [email or web address]
[2025-02-04 08:59] VITALS: BMI 53.4
--- NOTE | 2025-02-04 08:59 | NMCV_ITS ---
NM damion perf SPECT r/s* [id number] Emma Nguyen Age: 69 Gender: F : 1955 Exam Date: 02/04/2025 09:49 Ordering Phys: Hansel Singh DO Technologist: RAJINDER So Exam Location: [facility] Indications: CP STRESS TEST Please [facility] for [facility] IMAGE PROTOCOL Rest/Stress 1 Lexiscan Day Radiopharmaceutical Dose (mCi) Administration Site Administered by Rest: Tc-99m 10.8 IV Jessica Potter, CRIMINALIST TECHNICIAN Sestamibi Stress:Tc-99m 32.8 IV Jessica Montemayorgle, CRIMINALIST TECHNICIAN Sestamibi Rest: 04-Feb-2025 60 Discovery 630 Stress: 04-Feb-2025 30 Discovery 630 0.4mg Lexiscan. Images obtained in supine and prone position. SPECT RESULTS Technical Quality: Good Raw Data Analysis: Normal Image Corrections: No attenuation or motion correction applied Summed Stress Score: 5 Summed Rest Score: 5 Summed Difference Score: 2 PERFUSION FINDINGS Large area of patchy decreased tracer uptake is fixed perfusion defect noted in basal to distal inferior and 4 apical wall suggestive of old myocardial infarction versus scarring in the RCA territory. There is no reversibility or ischemia noted. FUNCTIONAL RESULTS (calculated via Gated SPECT) Stress Image LV EF (%): 74 Stress EDV (mL):84 TID: 1.07 Stress ESV (mL):22 FUNCTIONAL FINDINGS: There is normal left ventricular systolic function. IMPRESSIONS Large area of old myocardial infarction versus scarring noted in the basal to distal inferior wall without any ischemia. This study is negative for ischemia. Alejandra Cordero MD (Electronically Signed) Final Date: 08 February 2025 15:07 S
[2025-02-04 10:32] VITALS: BP 130/77; PULSE 70
== END 2025-02-04 08:44 | disposition home or self-care (01) ==
LOC: CDL 08:46
PROVIDERS: PCP Family Medicine; Visit Provider Family Medicine
DX: R07.89 Other chest pain (principal); R93.1 Abnormal findings on diagnostic imaging of heart and coronary circulation
CPT/HCPCS: 36415; 78452; 93017; 96374; A9500; J2785

== ENCOUNTER 2025-02-27 12:32 | Outpatient (CLI) | payer MEDICARE, SELFPAY ==
--- NOTE | 2025-02-27 12:43 | MR_ITS ---
WS: [id number] MRI HEAD WITH CONTRAST WITH ATTENTION TO THE INTERNAL AUDITORY CANALS TECHNIQUE: Sagittal T1, T2 axial, T2 axial flair, axial susceptibility weighted imaging, axial diffusion weighted images, and coronal T2 images were obtained. Pre and post T1 axial and post T1 coronal images. ADC and FSPGR images. Post gadolinium images with attention to the internal auditory canals. Axial fiesta imaging. CLINICAL INFORMATION: DIZZINESS/GIDDINESS COMPARISON: None. FINDINGS: Suspected tiny focus of subacute ischemia with partially restricted diffusion in the RIGHT vital radiata. Chronic infarct in the LEFT parasagittal parietal lobe with encephalomalacia and gliosis. Proximal 7th and 8th cranial nerves are normal in appearance. No evidence of enhancing IAC or CP angle mass. Normal trigeminal nerve root entry zones. Normal optic chiasm. Paranasal sinuses are well aerated. Trace mucosal thickening in the ethmoid air cells. Mild mucosal thickening LEFT mastoid air cells. RIGHT mastoid air cells are well aerated. Normal posterior nasopharynx. Normal vascular flow voids at the skull base. No hemosiderin on susceptibility-weighted images. No mild small vessel changes. No significant parenchymal volume loss. Other suspicious findings. MR/MR iac's wo/w con* [id number] IMPRESSION: 1. Proximal 7th and eighth cranial nerves are normal in appearance. No evidenc e of enhancing IAC or CP angle mass. Normal trigeminal nerve entry zones. 2. No evidence of restricted diffusion to suggest acute ischemia. 3. Encephalomalacia and gliosis in the LEFT parietal lobe extending to the cor rudy likely due to chronic infarct. 4. Suspected tiny focus of subacute ischemia RIGHT vital radiata. 5. No other suspicious findings.
[2025-02-27] MEDS: gadobenate dimeglumine 20 mL vial IV (14:12)
== END 2025-02-27 12:33 | disposition home or self-care (01) ==
LOC: RAD 12:35
PROVIDERS: PCP Family Medicine; Visit Provider Specialist
DX: G93.89 Other specified disorders of brain (principal); J34.89 Other specified disorders of nose and nasal sinuses
CPT/HCPCS: 70553

== ENCOUNTER → 2025-03-06 10:01 | Outpatient (BNVA) | payer MEDICARE, SELFPAY | PROVIDERS: PCP Family Medicine; Visit Provider Internal Medicine Cardiovascular Disease | DX: R07.89 Other chest pain (principal); I48.0 Paroxysmal atrial fibrillation; Z79.01 Long term (current) use of anticoagulants; Z79.82 Long term (current) use of aspirin; E78.5 Hyperlipidemia, unspecified; I10 Essential (primary) hypertension; E11.9 Type 2 diabetes mellitus without complications; Z79.4 Long term (current) use of insulin; Z79.85 Long-term (current) use of injectable non-insulin antidiabetic drugs; R42 Dizziness and giddiness; Z86.73 Personal history of transient ischemic attack (TIA), and cerebral infarction without residual deficits | CPT/HCPCS: 99214 ==

== ENCOUNTER 2025-03-10 15:56 | Emergency (ER) | payer MEDICARE, SELFPAY ==
[2025-03-10 15:57] VITALS: BP 175/92; PULSE 65; RESP 16; TEMP 37; O2SAT 100; BMI 53.8
--- OUTSIDE RECORDS SUMMARY | 2025-03-10 16:10 | XMS_ITS | Clinical Summary ---
Author Organization [facility] Address [address] [place]: Epic Prelude ADT LACEY NOEL [address] Care Team Providers Care Booster Plant Operator Name Role Phone Unavailable Primary Care [...] on file Legal Sex Female 2:58 PM MACHINE BOOKKEEPER Gender Identity Not on file Sexual Orientation Not on file Last Filed Vital Signs Vital Sign Reading Time Taken Comments Blood Pressure 140/100 03/25/2015 11:38 AM MACHINE BOOKKEEPER Pulse 82 03/25/2015 11:38 AM MACHINE BOOKKEEPER Temperature 37.2 C (99 F) 03/25/2015 11:38 AM MACHINE BOOKKEEPER Respiratory Rate 16 03/25/2015 11:38 AM MACHINE BOOKKEEPER Oxygen Saturation - - Inhaled Oxygen Concentration - - Weight 128.4 kg (283 lb) 03/25/2015 11:38 AM MACHINE BOOKKEEPER Height 160 cm (5' 3 ) 03/25/2015 11:38 AM MACHINE BOOKKEEPER Body Mass Index 50.13 03/25/2015 11:38 AM MACHINE BOOKKEEPER Plan of Treatment Health Maintenance Due Date [...]
--- OUTSIDE RECORDS SUMMARY | 2025-03-10 16:10 | XMS_ITS | Clinical Summary ---
Author Organization [facility] Address [address] [place] [id number] Care Team Providers Care Railroad Operating Engineer Name Role Phone Unavailable Primary Care Provider [...] on file Legal Sex Female 5:02 AM PET CARE TECHNICIAN Gender Identity Not on file Sexual Orientation Not on file Last Filed Vital Signs Vital Sign Reading Time Taken Comments Blood Pressure 140/100 03/25/2015 11:38 AM PET CARE TECHNICIAN Pulse 82 03/25/2015 11:38 AM PET CARE TECHNICIAN Temperature 37.2 C (99 F) 03/25/2015 11:38 AM PET CARE TECHNICIAN Respiratory Rate 16 03/25/2015 11:38 AM PET CARE TECHNICIAN Oxygen Saturation 97% 03/25/2015 11:38 AM PET CARE TECHNICIAN Inhaled Oxygen Concentration - - Weight 128.4 kg (283 lb) 03/25/2015 11:38 AM PET CARE TECHNICIAN Height 160 cm (5' 3 ) 03/25/2015 11:38 AM PET CARE TECHNICIAN Body Mass Index 50.13 03/25/2015 11:38 AM PET CARE TECHNICIAN Plan of Treatment Health Maintenance Due Date [...]
--- OUTSIDE RECORDS SUMMARY | 2025-03-10 16:10 | XMS_ITS | Encounter Summary ---
Author Organization [facility] Address [address] [place] [address] Care Team Providers Care Electrical And Instrument Engineer Name Role Phone Unavailable Primary Care Provider Unavailabl e Encounter Details Date Type Department Care Team (Latest Contact Info) Description 08/22/1998 Outpatient Historical [facility] Ela Duron MD [address] [place] [address] Abdominal pain, unspecified site (Primary Dx); Need for prophylactic vaccination with tetanus-diphtheria (Td) Social History Tobacco Use Types Packs/Day Years Used Date Smoking Tobacco: Never Assessed Comments Unknown Sex and Gender Information Value Date Recorded Sex Assigned at Not on file Legal Sex Female 5:02 AM MANAGER RELATIONSHIP Gender Identity Not on file Sexual Orientation Not on file documented as of this encounter Plan of Treatment Not on file documented as of this encounter Visit Diagnoses Diagnosis Abdominal pain, unspecified site- Primary Need for prophylactic vaccination with tetanus-diphtheria (Td) documented in this encounter
--- OUTSIDE RECORDS SUMMARY | 2025-03-10 16:10 | XMS_ITS | Encounter Summary ---
Author Organization [facility] Address [address] [place] [address] Care Team Providers Care Sprayer Insecticide Name Role Phone Unavailable Primary Care Provider Unavailabl e Encounter Details Date Type Department Care Team (Late st Contact Info) Description 09/05/1998 Outpatient Historical [facility] Social History Tobacco Use Types Packs/Day Years Used Date Smoking Tobacco: Never Assessed Comments Unknown Sex and Gender Information Value Date Recorded Sex Assigned at Not on file Legal Sex Female 5:02 AM ASSEMBLER LAY [employer] Gender Identity Not on file Sexual Orientation Not on file documented as of this encounter Plan of Treatment Not on file documented as of this encounter Visit Diagnoses Not on filedocumented in this encounter
--- OUTSIDE RECORDS SUMMARY | 2025-03-10 16:10 | XMS_ITS | Encounter Summary ---
Author Organization [facility] Address [address] [place] [address] Care Team Providers Care Television Analyzer Name Role Phone Unavailable Primary Care Provider Unavailabl e Encounter Details Date Type Department Care Team (Latest Contact Info) Description 08/25/1998 Outpatient Historical [facility] Ela Duron MD [address] [place] [address] Abdominal pain, unspecified site (Primary Dx) Social History Tobacco Use Types Packs/Day Years Used Date Smoking Tobacco: Never Assessed Comments Unknown Sex and Gender Information Value Date Recorded Sex Assigned at Not on file Legal Sex Female 5:02 AM PSYCHIATRIC SPECIALIST Gender Identity Not on file Sexual Orientation Not on file documented as of this encounter Plan of Treatment Not on file documented as of this encounter Visit Diagnoses Diagnosis Abdominal pain, unspecified site- Primary documented in this encounter
[2025-03-10 16:22] VITALS: BP 160/95; PULSE 77; O2SAT 100
--- NOTE | 2025-03-10 16:48 | W.ED.BACK ---
HPI - Back Pain/Injury General: Chief Complaint: Back Pain/Injury Stated Complaint: low back pain Time Seen by Provider: 03/10/25 16:10 History of Present Illness: Patient is a 69-year-old female presents to the ED with acute on chronic left lower back pain that radiates down her legs. She gets on the toilet to go to the bathroom, which is without incident other than the pain and tingling sensation radiating posterior down her left leg. Patient has not had any numbness or tingling in her groin, incontinence of urine. Patient believes the culprit of this ongoing acute on chronic sciatic pain down her left leg is due to sleeping at her daughter's house. She has slept on the couch for the last 1 year, and went to stay with her daughter to help her out, which is because severe pain today. This has been worsening today, however the pain has been there chronically. Associated symptoms: Deny chills, dysuria, fever(s), syncope or urinary urgency Related Data Home Medications ?Medication ?Instructions ?Recorded ?Confirmed diphenhydramine HCl 25 mg capsule 25 mg PO TID PRN Allergy Symptoms 08/27/21 03/06/25 (Benadryl) magnesium 250 mg tablet 250 mg PO DAILY@21 12/25/21 03/06/25 cholecalciferol (vitamin D3) 125 250 mcg PO BID 01/05/22 03/06/25 mcg (5,000 unit) tablet (Vitamin D3) hydrochlorothiazide 12.5 mg capsule 12.5 mg PO DAILY Unobtainable 01/17/25 03/06/25 sitagliptin phosphate 100 mg 100 mg PO DAILY No Known Home Meds 01/17/25 03/06/25 tablet (Januvia) Previous Rx's ?Medication ?Instructions ?Recorded blood-glucose sensor (Dexcom G7 #1 ea 09/27/23 Sensor device) blood-glucose,sas etl developer,cont #1 ea 09/27/23 (Dexcom G7 Engineer/Conductor) flash glucose scanning reader #1 ea 11/30/23 (FreeStyle Anisa [address] [place]) diltiazem HCl 240 mg 240 mg PO DAILY #90 caps 04/04/24 capsule,extended release 24 hr pen needle, diabetic 31 gauge x #100 ea 04/09/2409/28 (TechLITE Pen Needle) apixaban 5 mg tablet (Eliquis) 5 mg PO BID #180 tabs 10/11/24 blood-glucose sensor (FreeStyle #2 ea 11/20/24 Anisa 2 Plus Sensor device) flash glucose sensor (FreeStyle #2 ea 11/20/24 Anisa 2 Sensor kit) flecainide 100 mg tablet 100 mg PO Q12H #60 tabs 11/20/24 insulin glargine 100 unit/mL (3 50 unit (0.5 mL) SUBCUT DAILY #15 11/20/24 mL) subcutaneous pen (Lantus mL Solostar U-100 Insulin) paroxetine HCl 40 mg tablet 40 mg PO DAILY@2100 #90 tabs 11/20/24 semaglutide 0.25 mg or 0.5 mg (2 0.25 mg (0.368 mL) SUBCUT Q7D #3 mL 12/10/24 mg/3 mL) subcutaneous pen injector (Ozempic) aspirin 81 mg tablet,delayed 81 mg PO DAILY #30 tabs 01/21/25 release methocarbamol 500 mg tablet 500 mg PO Q8H PRN muscle spasm #30 03/10/25 tabs methylprednisolone 4 mg tablets in See Rx Instructions PO .COMPLEX 03/10/25 a dose pack (Medrol (Reggie)) #21 ea Allergies Allergy/AdvReac Type Severity Reaction Status Date / Time adhesive tape Allergy Severe rash Verified 03/10/25 16:04 acetaminophen (From Percocet) Allergy Unknown Verified 03/10/25 16:04 codeine Allergy ADR-Cramping Verified 03/10/25 16:04 of the Muscles Iodinated Contrast Media Allergy ADR-Blurry Verified 03/10/25 16:04 Vision morphine Allergy ADR-Confusi Verified 03/10/25 16:04 on oxycodone (From Percocet) Allergy Unknown Verified 03/10/25 16:04 lisinopril AdvReac Mild ADR-Cough Verified 03/10/25 16:04 Review of Systems General: Reports: 10 or more systems reviewed and unremarkable except in HPI and below Const: Denies: fever(s) or chills Card: Reports: palpitations, lightheadedness, pre-syncope and dyspnea on exertion; Denies: chest pain, irregular heart rhythm, swelling of feet/ankles, syncope, orthopnea or leg pain with exertion Resp: Denies: dyspnea, productive cough or non-productive cough GI: Denies: hematochezia : Denies: flank pain, difficulty voiding, dysuria, urinary frequency, urinary urgency, dribbling or oliguria Musc: Reports: back pain, extremity pain, joint pain, joint stiffness, limited range of motion and muscle cramps; Denies: neck pain, extremity swelling, joint swelling, joint redness, joint warmth, muscle weakness or decrease in muscle mass Skin/Breast: Denies: rash or pruritus Neuro: Denies: headache(s) or numbness in extremities Daquan/Lymph: Denies: easy bleeding PFSH ED PFSH: Medical History (Updated 03/10/25 @ 17:33 by TOMMIE Ruelas) Trigger thumb, left thumb Hypomagnesemia Atrial fibrillation Morbid obesity with BMI of 50.0-59.9, adult Hypertension Hyperlipidemia Uncontrolled type 2 diabetes mellitus CVA (cerebral vascular accident) Colon cancer Diabetes mellitus Surgical History H/O carpal tunnel repair Hx of cholecystectomy S/P colon resection Family History Other Obesity Social History Smoking and tobacco/nicotine status: never used tobacco/nicotine Alcohol intake: current Alcohol intake frequency: holidays/special occasions only Substance/Drug Use: never Female Reproductive History: Spontaneous abortions: No Physical Exam Const: COMMON NORMALS: no acute distress, average body habitus, patient oriented x3, no limitations, healthy appearing, alert and well nourished HENMT: COMMON NORMALS: normocephalic, atraumatic and hearing grossly normal bilaterally HEAD & SCALP: normocephalic and atraumatic Neck/C-Spine: COMMON NORMALS: full ROM, no lymphadenopathy, supple and no meningeal signs GENERAL: Yes normal visual inspection and Yes trachea midline Lymph: LYMPHATIC: no lymphadenopathy noted Chest: COMMONS NORMALS: normal inspection of the chest and normal palpation of entire chest wall Resp: COMMON NORMALS: normal respiratory effort, No retractions and No use of accessory muscles Cardio: COMMON NORMALS: regular rate and regular rhythm RATE: regular rate RHYTHM: regular rhythm GI: COMMON NORMALS: Normal to inspection, nondistended, normoactive bowel sounds present, Soft to palpation, non-tender and No hepatosplenomegaly present PALPATION: Yes Soft to palpation and Yes No hepatosplenomegaly present : COMMON NORMALS: Yes no CVA tenderness BLADDER/KIDNEY EXAM: Yes no CVA tenderness and No CVA tenderness Back/Pelvis: COMMON NORMALS: no CVA tenderness and straight leg raise negative bilaterally GENERAL BACK: No CVA tenderness THORACIC SPINE/UPPER BACK: Yes normal to inspection and Yes thoracic ROM normal LUMBAR SPINE/LOWER BACK: Yes normal to inspection, Yes ROM limited (due to pain), Yes pain with ROM and Yes straight leg raise negative bilaterally SACROILIAC JOINTS: Yes SI joint(s) abnormal (left) SI joint details: tender to palpation and pain elicited by compression of iliac crest maneuver Neuro: COMMON NORMALS: patient oriented x3 SENSORIUM/ORIENTATION: Yes alert MENINGEAL SIGNS: Yes no meningeal signs Course Reevaluation(s): Reevaluation #1: Minimal improvement. Vital Signs: Vital signs: Vital Signs Temperature 98.6 F 03/10/25 15:57 Pulse Rate 77 03/10/25 16:22 Respiratory Rate 16 03/10/25 15:57 Blood Pressure 160/95 03/10/25 16:22 Pulse Oximetry 100 03/10/25 16:22 Oxygen Delivery Me thod Room Air 03/10/25 15:57 MDM - Back Pain/Injury Medical Decision Making Patient is a 69-year-old female with acute on chronic left sciatic pain. Discussed with patient the limits of the ER. Gave Toradol, Norflex, Medrol Dosepak, and sent methocarbamol, a lower dose given her age, and Medrol Dosepak to the pharmacy. All of her questions answered to her satisfaction. She only received approximately 25% relief here with medications. Medical Records I reviewed the patient's medical records. No radiology studies performed this visit Discharge Plan Discharge Patient Disposition: Home Clinical Impression: Sciatica Condition: Stable Prescriptions: New methocarbamol 500 mg tablet 500 mg PO Q8H PRN (Reason: muscle spasm) Qty: 30 0RF methylprednisolone [Medrol (Reggie)] 4 mg tablets,dose pack See Rx Instructions .ROUTE .COMPLEX Qty: 21 0RF Rx Instructions: for 6 days No Action diphenhydramine HCl [Benadryl] 25 mg capsule 25 mg PO TID PRN (Reason: Allergy Symptoms) (DME) FreeStyle Anisa 2 Plus Sensor Device See Rx Instructions .Route Qty: 2 6RF Rx Instructions: As directed (DME) FreeStyle Anisa 2 Sensor Kit See Rx Instructions .ROUTE .COMPLEX Qty: 2 6RF Dose Instruction: As directed Rx Instructions: As directed flecainide 100 mg tablet 100 mg PO Q12H Qty: 60 6RF paroxetine HCl 40 mg tablet 40 mg PO DAILY@2100 Qty: 90 3RF insulin glargine [Lantus Solostar U-100 Insulin] 100 unit/mL (3 mL) insulin pen 50 unit SUBCUT DAILY Qty: 15 6RF (DME) Dexcom G7 Engineer/Conductor Misc See Rx Instructions .Route Qty: 1 0RF Rx Instructions: As directed (DME) Dexcom G7 Sensor Device See Rx Instructions .Route Qty: 1 6RF Rx Instructions: As directed (DME) FreeStyle Anisa [address] [place] Misc See Rx Instructions .Route Qty: 1 0RF Rx Instructions: As directed diltiazem HCl 240 mg capsule,extended release 24hr 240 mg PO DAILY Qty: 90 3RF (DME) pen needle, diabetic [TechLITE Pen Needle] 31 gauge x 5/16 needle See Rx Instructions .ROUTE .MEDSUPPLY Qty: 100 6RF Rx Instructions: As directed Eliquis 5 mg tablet 5 mg PO BID Qty: 180 3RF Ozempic 0.25 mg or 0.5 mg (2 mg/3 mL) pen injector 0.25 mg SUBCUT Q7D Qty: 3 3RF cholecalciferol (vitamin D3) [Vitamin D3] 125 mcg (5,000 unit) tablet 250 mcg PO BID magnesium 250 mg Tablet 250 mg PO DAILY@21 hydrochlorothiazide 12.5 mg capsule 12.5 mg PO DAILY Rx Instructions: TAKE 2 CAPSULES BY MOUTH DAILY Januvia 100 mg tablet 100 mg PO DAILY Rx Instructions: TAKE 1 TABLET BY MOUTH DAILY AT 9:00 EVERY EVENING aspirin 81 mg tablet,delayed release (DR/EC) 81 mg PO DAILY Qty: 30 0RF Discharge Orders: Discharge ED (Routine); Ordered 03/10/25 Ordered By: Huma Coleman Referrals: Salo Valladares MD [Primary Care Provider, Family Practice] Patient Instructions: Sciatica (ED), Patient Portal & Mehdi Instructions Activity Restrictions/Additional Instructions: - Take your medication as directed. Sent to the pharmacy: Medrol Dosepak, methocarbamol/Robaxin which is a muscle relaxer. -You will need to call your doctor for follow-up regarding your sciatica. Additional considerations and medications will need to be done through your primary care. We cannot give out narcotics for this issue through the ER. -Please return to the ED if you have numbness or tingling in your groin on the front side, incontinence, or inability to urinate due to retention. Thank you for choosing [facility] for your healthcare needs today. You have been screened and evaluated and felt safe for discharge. Health conditions do change or evolve sometimes and as such it is important that you follow up with your Primary Doctor to be re checked, 3-5 days is a general good time frame for follow up. You are always welcome to return to the ED for re assessment if your symptoms are worsening or you have new concerns Print Language: Vietnamese Coding Level of Care Code ED Route Carrier for Annie Crocker
[2025-03-10] MEDS: orphenadrine 30 mg/mL Inj 2 mL 60 MG IM (17:13)
[2025-03-10] MEDS: HYDROcodone-acetaminophen 5-325 mg Tablet 1 TAB PO (17:16)
[2025-03-10 17:38] VITALS: BP 169/91; PULSE 62; O2SAT 93
== END 2025-03-10 17:10 | disposition home or self-care (01) ==
PROVIDERS: Emergency Provider Physician Assistant; PCP Family Medicine
DX: M54.32 Sciatica, left side (principal); Z79.4 Long term (current) use of insulin; Z79.01 Long term (current) use of anticoagulants; Z79.82 Long term (current) use of aspirin; E11.9 Type 2 diabetes mellitus without complications; I10 Essential (primary) hypertension; E78.5 Hyperlipidemia, unspecified; Z86.73 Personal history of transient ischemic attack (TIA), and cerebral infarction without residual deficits; Z85.038 Personal history of other malignant neoplasm of large intestine
CPT/HCPCS: 96372; 99284; J1100; J1885; J2360; J9999

== ENCOUNTER 2025-04-23 12:35 | Outpatient (CLI) | payer MEDICARE, SELFPAY ==
--- NOTE | 2025-04-23 12:45 | XR_ITS ---
WS: [id number] XR lumbar spine 2-3V* [id number] REASON FOR EXAM: Lumbar radiculopathy left FINDINGS: Mild rotatory levoscoliosis. Mild straightening of the lordosis. No focal lesion or significant compression deformity of the lumbar vertebrae. Moderate osteophytosis of the lumbar vertebrae L1-L5. Moderate narrowing of the L4-L5 disc space. Mild narrowing of the L2-L3 disc space. No spondylolysis. No significant neutral listhesis. XR/XR lumbar spine 2-3V* [id number] IMPRESSION: Multilevel degenerative spondylosis.
== END 2025-04-23 12:36 | disposition home or self-care (01) ==
PROVIDERS: PCP Family Medicine; Visit Provider Family Medicine
DX: M54.16 Radiculopathy, lumbar region (principal); M25.78 Osteophyte, vertebrae; M51.360 Other intervertebral disc degeneration, lumbar region with discogenic back pain only; R29.3 Abnormal posture; M41.86 Other forms of scoliosis, lumbar region
CPT/HCPCS: 72100